=== PATIENT | female | born 1950 | race Two or more races ===

== ENCOUNTER 2024-04-27 20:57 | Inpatient (IN) | payer MEDICARE, MEDICAID, SELFPAY ==
[2024-04-27 21:08] VITALS: PULSE 98
[2024-04-27 21:17] VITALS: BP 147/86; PULSE 133; RESP 18; TEMP 37.9; O2SAT 97; BMI 38.7
--- NOTE | 2024-04-27 21:28 | EKG_ITS ---
[facility] Test Date: 2024-04-27 Pat Name: GOMEZ MARCELINO Department: Room: - Gender: Female Nocturnist Physician: : 1950 Requested By: Luke Bone Order Number: [id number] Reading MD: Luke Bone Measurements Intervals [place] Rate: 122 P: 16 FL: 149 QRS: 176 QRSD: 85 T: 5 QT: 318 QTc: 455 Interpretive Statements SINUS TACHYCARDIA INDETERMINATE AXIS LOW QRS VOLTAGE IN PRECORDIAL LEADS [QRS DEFLECTION < 1.0 mV IN CHEST LEADS] POSSIBLE ANTERIOR MYOCARDIAL INFARCTION , PROBABLY OLD [30 ms Q WAVE IN V3/V4, OR R < 0.2 mV IN V4] INFERIOR MYOCARDIAL INFARCTION , PROBABLY OLD [40+ ms Q WAVE AND/OR ST/T ABNORMALITY IN II/aVF] Compared to ECG 10/25/2022 15:58:16 Indeterminate axis now present Sinus rhythm no longer present Myocardial infarct finding still present /store/S0/[id number].pdf
--- NOTE | 2024-04-27 21:29 | EDNOTE_ITS ---
ED Fall Injury RME/HPI General Chief Complaint: Fall Stated Complaint: FALL Time Seen by Provider: 04/27/24 21:17 Arrival date/time: 04/27/24 20:57 RME / HPI RME / HPI Narrative: Dr. Adams?s Main ED Evaluation: 74yo female with pmhx HTN presents to the ED for a chief complaint of a fall x 30 minutes HIGH SCALER. Patient states she was walking in her room when she felt generally weak and fell. She denies any head strikes or loss of consciousness. Patient reports having epigastric pain x 1 week, chills, nausea, a mild cough, a headache, and sweating. Per EMS, patient was saturating at 88% RA and went up to 96% on 6L. Patient denies any fever, vomiting, diarrhea, shortness of breath or any other associated symptoms. She denies any history of similar symptoms. She denies being on any blood thinners. No known allergies. Patient states she is anxious. Related Data Home Medications ?Medication ?Instructions ?Recorded ?Confirmed hydrochlorothiazide 25 mg tablet 25 mg PO QAM #0 tabs 09/13/14 06/30/18 lisinopril 40 mg tablet 40 mg PO QDAY #0 tabs 09/13/14 06/30/18 atorvastatin 10 mg tablet 10 mg PO QDAY 05/14/18 06/30/18 diclofenac sodium 100 mg 100 mg PO QDAY 05/14/18 06/30/18 tablet,extended release 24 hr omeprazole 40 mg capsule,delayed 40 mg PO QDAY 05/14/18 05/14/18 release sertraline 100 mg tablet 100 mg PO QDAY 06/30/18 06/30/18 Previous Rx's ?Medication ?Instructions ?Recorded naproxen 500 mg tablet 500 mg PO BID #60 tabs 11/20/19 ondansetron HCl 4 mg tablet 4 mg PO Q8H NAUSEA #30 tabs 11/20/19 (Zofran) ibuprofen 800 mg tablet 800 mg PO TID PRN pain #30 tabs 09/06/20 ondansetron 4 mg disintegrating 4 mg PO Q8H PRN nausea and 10/25/22 tablet vomiting #15 tabs Allergies Allergy/AdvReac Type Severity Reaction Status Date / Time No Known Allergies Allergy Verified 02/18/24 09:31 Review of Systems Review of Systems Systems Reviewed: All systems reviewed, normal except as documented Narrative Review of Systems: Gen: No fever, + chills, no weight loss, + sweating EYES: No discharge, no visual changes, no pain HEENT: No ear pain, no congestion, no sore throat PULM: No shortness of breath, + cough, no congestion CV: No chest pain, no dyspnea on exertion, no palpitations GI: + nausea, no vomiting, no diarrhea, + pain, no constipation : No frequency, no urgency, no dysuria Musc/skel: No joint pain, no back pain Skin: No rash. Warm and dry. Psyc: No hallucinations, no depression Heme/Lymph: No easy bleeding or bruising tendencies Neuro: No weakness, + headache Past Medical History Past Medical History NEUROLOGIC: Negative Neurological Disorders or Seizures CARDIAC: Positive Cardiac Disorders, Hypercholesterolemia and Hypertension; Negative Congestive Heart Failure RESPIRATORY: Negative Chronic Obstructive Pulmonary Disease (COPD) or Asthma GASTROINTESTINAL: Positive Gastrointestinal Disorders, Gastroesophageal Reflux Disease and Obesity GENITOURINARY: Negative Genitourinary Disorders or Renal Disease REPRODUCTIVE: Positive Previous Pregnancies; Negative Breast Cancer or Pelvic Inflammatory Disease MUSCULOSKELETAL: Positive Arthritis; Negative Musculoskeletal Disorders ENDOCRINE: Negative Endocrine Disorders, Diabetes Mellitus Type 1 or Diabetes Mellitus Type 2 HEMATOLOGIC: Negative Blood Disorders, Anemia or Sickle Cell Disease PSYCHO/SOCIAL: Positive Depression OTHER HISTORY: Negative Hospitalization, Autoimmune Disease, Falls, Blood Transfusions, Blood Transfusion Reaction, Anesthesia Reactions, MRSA, Clostridium Difficile or Breast Cancer Family History FAMILY HISTORY: Negative Family Cardiac Disorders Surgical History SURGICAL: Positive Cardiac Surgery, Vascular Surgery (varicose veins) and Section Social History SMOKING STATUS: Never smoker ED Exam Narrative Physical exam: GENERAL APPEARANCE: alert and oriented x 4, well-developed, well-nourished, no acute distress VITALS: All vitals were reviewed and the pulse ox is 97% on 6L/nasal cannula, which is hypoxic according to my interpretation. HEENT: Normocephalic, atraumatic; pupils equal, round, reactive to light; EOMI; mucous membranes pink, moist; oropharynx clear NECK: Supple LUNGS: scattered mild wheezes, distant lung sound bilaterally, no rales, no rhonchi HEART: Tachycardic, regular rhythm; normal S1, S2; no murmurs ABDOMEN: non distended; normal BS; soft, moderate mid abdominal tenderness, + Lomax sign, voluntary guarding, no rebound, no rigidity; no masses, no organomegaly, no hernia BACK: no CVA tenderness EXTREMITIES: atraumatic; no edema NEUROLOGIC: awake; alert and oriented x4; cranial nerves II-XII grossly intact; no focal sensory or motor deficits PSYCHIATRIC: appropriate mood and affect SKIN: warm, dry, normal color; no rashes Course Course Course Narrative: CXR is ordered for determining the etiology of fever. 2134: Sepsis alert initiated. Orders made at this time are congruent with ED Adult Sepsis Order List. Re-evaluation is to be completed. 2205: NS IVF started. 2316: Sepsis reassessment performed consisting of lab review, vitals, physical exam including auscultation of heart, lungs, and visual evaluation of capillary refills, mucosal membranes and extremities. Quality Measures Possible source: unknown Blood cultures ordered: yes Antibiotic ordered: Yes Pertinent labs: 04/27/24 21:43 Lactic Acid 3.8 H mMol/L (0.4-2.0) Procalcitonin 0.23 ng/ml (0.0-0.49) sepsis Orders Category Date Time Status Bedside COVID-19 Antigen Test NOW Care 04/27/24 21:32 Active Bedside Influenza A&B Antigen Test NOW Care 04/27/24 21:[address] Screening NOW Care 04/27/24 21:[address] Screening NOW Care 04/27/24 21:41 Completed Laborer [place] STAT Care 04/27/24 21:28 Active Continuous Pulse Oximetry STAT Care 04/27/24 21:28 Completed EKG (ED ONLY) *Do not use* NOW Care 04/27/24 21:28 Completed In and Out Catheter X1PRN Care 04/27/24 21:28 Completed Insert IV NOW Care 04/27/24 21:28 Active NPO STAT Care 04/27/24 21:28 Active Strict Intake and Output Routine Care 04/27/24 21:[address] chest abdomen pelvis w Stat Exams 04/27/24 21:40 Completed EKG (ED Only) Stat Exams 04/27/24 21:28 Draft US gall bladder Stat Exams 04/27/24 21:39 Completed XR chest 1V portable Stat Exams 04/27/24 21:31 Completed B-Type Natriuretic Peptide Stat Lab 04/27/24 21:43 Completed Blood Culture (Lab) Stat Lab 04/27/24 21:43 Received CBC Stat Lab 04/27/24 21:43 Completed Comprehensive Metabolic Panel Stat Lab 04/27/24 21:43 Completed LDH (Lactate Dehydrogenase) Stat Lab 04/27/24 21:43 Completed Lactate (Lactic Acid) Stat Lab 04/27/24 21:43 Completed Lactate (Lactic Acid) Stat Lab 04/28/24 00:48 Ordered Lactic Acid, 3 HR Stat Lab 04/28/24 00:48 Ordered Lipase Stat Lab 04/27/24 21:43 Completed Magnesium Stat Lab 04/27/24 21:43 Completed Partial Thromboplastin Time Stat Lab 04/27/24 21:43 Completed Phosphorous Stat Lab 04/27/24 21:43 Completed Procalcitonin Stat Lab 04/27/24 21:43 Completed Prothrombin Time with INR Stat Lab 04/27/24 21:43 Completed Troponin I Stat Lab 04/27/24 21:43 Completed Troponin I Stat Lab 04/28/24 00:48 Ordered Urinalysis Stat Lab 04/27/24 22:00 Completed Urine Culture Stat Lab 04/27/24 22:00 Received VBG [Venous Blood Gas] Stat Lab 04/27/24 21:43 Completed Acetaminophen Ivpb [Ofirmev Inj] Med 04/27/24 21:35 Discontinued 1,000 mg in 100 ml IV X1 Piper/Tazo 3.375 gm [Zosyn] Med 04/27/24 21:28 Discontinued 3.375 gm in 50 ml IV X1 Sodium Chloride 0.9% 1000 ml [Ns] 1,000 ml Med 04/28/24 00:48 Active IV 999 mls/hr Sodium Chloride 0.9% 500 ml [Ns] 500 ml Med 04/27/24 21:31 Discontinued IV 999 mls/hr Sodium Chloride 0.9% 500 ml [Ns] 500 ml Med 04/27/24 21:42 Discontinued IV 999 mls/hr Vancomycin Inj 2,000 mg Med 04/27/24 21:45 Discontinued Sodium Chloride 0.9% 500 ml [Ns] 500 ml IV X1 Vancomycin Inj 2,000 mg Med 04/27/24 23:09 Active Sodium Chloride 0.9% 500 ml [Ns] 500 ml IV X1 Vancomycin Pharmacy to Dose Med 04/28/24 09:00 Pending 1 each IV QDAY Oxygen Delivery NOW RT 04/27/24 21:28 Active Vital Signs Vital signs: Vital Signs Temperature 100.3 F 04/27/24 21:17 Pulse Rate 133 H 04/27/24 21:17 Respiratory Rate 18 04/27/24 21:17 Blood Pressure 147/86 H 04/27/24 21:17 Pulse Oximetry (%) 97 04/27/24 21:17 Oxygen Delivery Method Nasal Cannula 04/27/24 21:17 Oxygen Flow Rate 6 04/27/24 21:17 Fall MDM Narrative MDM Narrative:: Scribe Attestation: 04/27/24 - Yady Herrmann am scribing for and in the presence of Dr. Adams. Patient data External records reviewed:: [facility] previous records (Per chart review, patient was seen here on 02/18/24 for gastroenteritis.) Clinical information provided by:: patient Social determinants that could affect healthcare access:: none Patient has the following chronic illnesses:: HTN, HLD, GERD How is presenting disease/condition affected by chronic disease/condition?: uneffected by Evaluation data The following diagnostics were reviewed and interpreted by me:: lab results, radiology exam(s) and EKG tracing(s) Lab and/or radiology exams considered but not ordered:: none Interpretation Summary: CBC is normal, Lactic Acid is elevated at 3.8, BNP is slightly elevated at 121, Glucose is elevated at 220, Phosphorus is low at 1.2, Troponin is elevated at 0.064, Procalcitonin is normal, Lipase is normal, UA is unremarkable, Bedside COVID and Influenza are negative, according to my interpretation. EKG done at 2139, sinus tachycardia, rate of 122, normal axis, no ectopy, Q wave in lead III and aVF, no acute ischemia, according to my interpretation. ----- [facility] Report Signed Patient: GOMEZ MARCELINO [facility] Record#: [id number] Birthdate: 1950 Age/Sex: 74 / F Location: [facility] Attending Dr: Ordering Physician: Luke Adams MD Date of Service: 04/27/24 Procedure(s): US gall bladder Accession Number(s): [id number] cc: Celio Landin MD; Luke Adams MD~ Examination: Abdomen sonogram, Limited Date and time of exam: April 27, 2024 10:16 PM Indications: Onset right upper abdominal pain beginning one week ago Technique: Real-time galeano scale transabdominal sonographic images of the upper abdomen obtained. Findings: Normal gallbladder Normal common bile duct 0.4 cm Pancreatic head 2.6 cm Liver 18.5 cm fatty infiltration no focal liver lesions Normal hepatopedal portal venous flow Patent IVC Impression: Normal gallbladder Common bile duct 0.4 cm no stones Hepatomegaly 18.5 cm fatty liver Dictated By: Celio Landin MD Signed By: <Electronically signed by Celio Landin MD in OV> 04/27/242252 [facility] Signed Patient: GOMEZ MARCELINO [facility]. Record#: [id number] Birthdate: 1950 Age/Sex: 74 / F Location: [facility] Attending Dr: Ordering Physician: Luke Adams MD Date of Service: 04/27/24 Procedure(s): XR chest 1V portable Accession Number(s): [id number] cc: Celio Landin MD; Luke Adams MD~ Examination: AP chest single view Technique one AP Upright chest single view Exam date and time: April 27, 2024 2156 hrs. Comparison September 01, 2023 Indications: Coughing, sepsis alert today Findings: Stable scarring in the right upper lobe Normal heart size Ectatic thoracic aorta No interval pneumonia or pulmonary edema Impression: No interval pneumonia or pulmonary edema Dictated By: Celio Landin MD Signed By: <Electronically signed by Celio Landin MD in OV> 04/27/242255 ------- [facility] Report Signed Patient: GOMEZ MARCELINO [facility]. Record#: [id number] Birthdate: 1950 Age/Sex: 74 / F Location: [facility] Attending Dr: Ordering Physician: Luke Adams MD Date of Service: 04/27/24 Procedure(s): CT chest abdomen pelvis w Accession Number(s): [id number] cc: Jacquelyn Martinez [employer]NAGER; Celio Landin MD; Luke Adams MD~ Examination: CT chest with intravenous contrast CT abdomen with intravenous contrast CT pelvis with intravenous contrast 2-D coronal and sagittal reconstructions Time of exam: April 27, 2024 1134 hrs. Comparison July 11, 2023 Indications: Patient fell today with injury to the chest and abdomen, chest pain abdomen pain CTDI: vol (mGy) : 16.8 DLP: (mGycm): 1291 Technique: Multiple axial images of the chest, abdomen and pelvis with intravenous contrast, 3.0 mm slice thickness. Images obtained post intravenous injection Isovue 370 60 cc. 2-D sagittal and coronal reconstructions. Low dose protocols were performed. One or more of the following dose reduction techniques were used; automated exposure control, adjustment of the mA and/or KV according to patient size, use of iterative reconstruction technique. Findings: Thoracic aorta pulmonary arteries intact AP dimension ascending thoracic aorta 3.9 cm No hemopericardium Again noted cavitary lesion posterior segment right upper lobe currently 5.3 x 4.0 x 7.6 cm with fluid level, adjacent pulmonary parenchymal disease No pneumothorax Minimal bilateral pleural disease Old fractures left 10th, ninth, eighth ribs posteriorly Nondisplaced left fifth and seventh rib fractures which may be acute, nondisplaced Manubrium body the sternum intact No thoracic or lumbar fracture Hepatomegaly 25 cm No liver splenic or renal laceration Moderate renal parenchymal scar formation No gallstones No pancreatic or adrenal mass Splenule Abdominal aorta intact, no free blood in the abdomen Normal appendix Negative for pneumoperitoneum Colonic diverticulosis, no diverticulitis Atrophic uterus Urinary bladder intact hips bones of the pelvis sacral segments intact Impression: Again noted cavitary lesion with satellite parenchymal disease in the posterior segment right upper lobe, differential would include tuberculosis Thoracic aorta pulmonary arteries intact No hemopericardium, or pneumothorax Nondisplaced left fifth and seventh rib fractures which may be acute, clinical correlation advised No abdominal parenchymal laceration Abdominal aorta intact No free blood in the abdomen or pelvis Dictated By: Celio Landin MD Signed By: <Electronically signed by Celio Landin MD in OV> 04/28/24 0021 Medications / Prescriptions Medications or Prescriptions considered but not ordered:: none Medication administrations:: Medication Administration History Vancomycin HCl 2,000 mg/ (Sodium Chloride) 500 mls @ 150 mls/hr IV X1 ONE Stop: 04/28/24 02:28 Last Admin: 04/27/24 23:21 Dose: 150 mls/hr Documented By: DAIN Sodium Chloride (Ns) 1,000 mls @ 999 mls/hr IV .Q1H1M ONE Stop: 04/28/24 01:48 Pharmacy Consult (Vancomycin Pharmacy To Dose 1 Each Each) 1 each IV QDAY TAMARA Stop: 05/28/24 08:59 Discontinued Medications Piperacillin/Tazobactam/Dextrose (Zosyn) 3.375 gm in 50 mls @ 100 mls/hr IV X1 ONE Stop: 04/27/24 21:57 Last Infusion: 04/27/24 22:28 Dose: Infused Documented By: Admin: 04/27/24 21:54 Dose: 100 mls/hr Documented By: Sodium Chloride (Ns) 500 mls @ 999 mls/hr IV .Q31M ONE Stop: 04/27/24 22:01 Last Infusion: 04/27/24 22:46 Dose: Infused Documented By: Admin: 04/27/24 22:06 Dose: 999 mls/hr Documented By: LIDA Acetaminophen (Ofirmev Inj) 1,000 mg in 100 mls @ 250 mls/hr IV X1 ONE Stop: 04/27/24 21:58 Last Infusion: 04/27/24 22:56 Dose: Infused Documented By: Admin: 04/27/24 22:25 Dose: 250 mls/hr Documented By: LIDA Vancomycin HCl 2,000 mg/ (Sodium Chloride) 500 mls @ 150 mls/hr IV X1 ONE Stop: 04/28/24 01:04 Last Admin: 04/27/24 23:10 Dose: Not Given Documented By: DAIN Non-Admin Reason: Contaminated/Dropped Sodium Chloride (Ns) 500 mls @ 999 mls/hr IV .Q31M ONE Stop: 04/27/24 22:12 Last Infusion: 04/27/24 23:22 Dose: Infused Documented By: Admin: 04/27/24 22:46 Dose: 999 mls/hr Documented By: LIDA see above Consultations Consultation(s) initiated? (list below): Yes Consultation #1 (Physician, Specialty, Details): Discussed case with [the resident physician, attending Dr. Calle] from Hospitalist service regarding admission. Discussed patients ED course, exam findings, labs, and radiology results. The Hospitalist [agrees] to accept the patient for admission. Time: 00:51 Diagnosis Fall Differential Diagnosis: other (fracture, dislocation, contusion, diverticulitis, pancreatitis, cholelithiasis, cholecystitis) Most likely diagnosis given after review of the tests above:: see below Admission Indicated Admission indicated?: indicated Admission Request Was there a request for admission?: Yes Admission Attestation Admission request attestation: Discussed case with [] from Hospitalist service regarding admission. Discussed patients ED course, exam findings, labs, and radiology results. The Hospitalist [agrees,declines] to accept the patient for admission. Disposition Plan Disposition Plan: Admit Critical Care Time Critical Care Time Critical Care Time: Yes Total Critical Care Time (min.): 60 Attestation: The high probability of sudden, clinically significant deterioration in the patient?s condition required the highest level of my preparedness to intervene urgently. The services I provided to this patient were to treat and/or prevent clinically significant deterioration. Services included the following: chart data review, reviewing nursing notes and/or old charts, documentation time, software sales consultant collaboration regarding findings and treatment options, medication orders and management, direct patient care, vital sign assessments and ordering, interpreting and reviewing diagnostic studies and lab tests. Aggregate critical care time includes only time during which I was engaged in work directly related to the patient?s care, as described above, whether at bedside or elsewhere in the Emergency Department. It did not include time spent performing other reported procedures or the services of residents, students, nurses or physician assistants. Discharge Plan Plan Patient Disposition: Admit Acute Care w/in Hospital Prescriptions/Referrals Prescriptions/Med Rec: No Action hydrochlorothiazide 25 MG tablet 25 mg PO QAM Qty: 0 lisinopril 40 MG tablet 40 mg PO QDAY Qty: 0 atorvastatin 10 mg Tablet 10 mg PO QDAY diclofenac sodium 100 mg Tablet Extended Release 24 Hr 100 mg PO QDAY omeprazole 40 mg Capsule,Delayed Release(Dr/Ec) 40 mg PO QDAY sertraline 100 mg Tablet 100 mg PO QDAY ibuprofen 800 mg tablet 800 mg PO TID PRN (Reason: pain) Qty: 30 0RF naproxen 500 mg tablet 500 mg PO BID Qty: 60 0RF ondansetron HCl [Zofran] 4 mg tablet 4 mg PO Q8H Qty: 30 0RF ondansetron 4 mg tablet,disintegrating 4 mg PO Q8H PRN (Reason: nausea and vomiting) Qty: 15 0RF Referrals: Jacquelyn Martinez NP [Primary Care Provider] - In 1 week Problem List Clinical Impression: Hyperglycemia, Sepsis, Non-ST elevation VT (NSTEMI) Patient/Caregiver Discharge Instructions Print Language: Yi Stand Alone Forms: [employer] Award Info., Patient Portal Info Letter
[2024-04-27 21:36] VITALS: TEMP 39.9
--- NOTE | 2024-04-27 21:39 | XR_ITS ---
Examination: Abdomen sonogram, Limited Date and time of exam: April 27, 2024 10:16 PM Indications: Onset right upper abdominal pain beginning one week ago Technique: Real-time galeano scale transabdominal sonographic images of the upper abdomen obtained. Findings: Normal gallbladder Normal common bile duct 0.4 cm Pancreatic head 2.6 cm Liver 18.5 cm fatty infiltration no focal liver lesions Normal hepatopedal portal venous flow Patent IVC Impression: Normal gallbladder Common bile duct 0.4 cm no stones Hepatomegaly 18.5 cm fatty liver
--- NOTE | 2024-04-27 21:40 | XR_ITS ---
Examination: CT chest with intravenous contrast CT abdomen with intravenous contrast CT pelvis with intravenous contrast 2-D coronal and sagittal reconstructions Time of exam: April 27, 2024 1134 hrs. Comparison July 11, 2023 Indications: Patient fell today with injury to the chest and abdomen, chest pain abdomen pain CTDI: vol (mGy) : 16.8 DLP: (mGycm): 1291 Technique: Multiple axial images of the chest, abdomen and pelvis with intravenous contrast, 3.0 mm slice thickness. Images obtained post intravenous injection Isovue 370 60 cc. 2-D sagittal and coronal reconstructions. Low dose protocols were performed. One or more of the following dose reduction techniques were used; automated exposure control, adjustment of the mA and/or KV according to patient size, use of iterative reconstruction technique. Findings: Thoracic aorta pulmonary arteries intact AP dimension ascending thoracic aorta 3.9 cm No hemopericardium Again noted cavitary lesion posterior segment right upper lobe currently 5.3 x 4.0 x 7.6 cm with fluid level, adjacent pulmonary parenchymal disease No pneumothorax Minimal bilateral pleural disease Old fractures left 10th, ninth, eighth ribs posteriorly Nondisplaced left fifth and seventh rib fractures which may be acute, nondisplaced Manubrium body the sternum intact No thoracic or lumbar fracture Hepatomegaly 25 cm No liver splenic or renal laceration Moderate renal parenchymal scar formation No gallstones No pancreatic or adrenal mass Splenule Abdominal aorta intact, no free blood in the abdomen Normal appendix Negative for pneumoperitoneum Colonic diverticulosis, no diverticulitis Atrophic uterus Urinary bladder intact hips bones of the pelvis sacral segments intact Impression: Again noted cavitary lesion with satellite parenchymal disease in the posterior segment right upper lobe, differential would include tuberculosis Thoracic aorta pulmonary arteries intact No hemopericardium, or pneumothorax Nondisplaced left fifth and seventh rib fractures which may be acute, clinical correlation advised No abdominal parenchymal laceration Abdominal aorta intact No free blood in the abdomen or pelvis
[2024-04-27 21:52] LABS: Base Excess, Venous 3 (-3-3); Lactate (Lactic Acid) 3.8 mMol/L (0.4-2.0); O2 Saturation, Venous 97 % (96-97); PCO2, Venous 36 mmHg (36-56); PO2, Venous 69 mmHg (15-58); pH, Venous 7.47 (7.33-7.66)
[2024-04-27] MEDS: PIPER/TAZO 3.375 GM 3.375 GM/50 ML BAG IV (21:54)
[2024-04-27 21:56] LABS: Basophils % (Auto) 0 % (0-2.5); Eosinophils % (Auto) 0 % (0-10); Hematocrit 41.5 % (36.0-46.0); Hemoglobin 13.1 g/dL (12.0-16.0); Immature Granulocytes % (Auto) 0 % (0-0); Immature Granulocytes Auto 0.02 Thou/mm3 (0.00-0.00); Lymphocytes # (Auto) 0.7 Thou/mm3 (1.0-4.8); Lymphocytes % (Auto) 7 % (10-50); Mean Corpuscular HGB Conc 31.6 g/dl (31.0-37.0); Mean Corpuscular Hemoglobin 28.7 pg (25.0-35.0); Mean Corpuscular Volume 91 fL (80-100); Monocytes # (Auto) 0.4 Thou/mm3 (0.0-0.8); Monocytes % (Auto) 4 % (0-12); Neutrophils # (Auto) 8.3 Thou/mm3 (1.8-7.7); Neutrophils % (Auto) 88 % (37-80); Nucleated Red Blood Cell % 0 /100 WBC (0); Platelet Count 176 Thou/mm3 (140-440); RDW Standard Deviation 47.4 fL (36.4-46.3); Red Blood Count 4.56 Miln/mm3 (4.00-5.20); White Blood Count 9.5 Thou/mm3 (3.6-11.0)
[2024-04-27] MEDS: SODIUM CHLORIDE 0.9% 500 ML 500 ML 999 ML IV ×2 (22:06→22:46)
[2024-04-27 22:07] LABS: INR 1.1 (0.9-1.3); Partial Thromboplastin Time 26.1 Seconds (22.0-36.0); Prothrombin Time 11.9 Seconds (9.0-12.2)
[2024-04-27 22:09] VITALS: PULSE 127; RESP 92; O2SAT 95
[2024-04-27 22:09] LABS: B-Type Natriuretic Peptide 121 pg/mL (0-100)
[2024-04-27 22:13] LABS: Alanine Aminotransferase 10 U/L (10-49); Albumin, Serum 3.9 gm/dL (3.4-4.8); Albumin/Globulin Ratio 1.2 (1.2-2.2); Alkaline Phosphatase 172 U/L (46-116); Anion Gap 10 (7-16); Aspartate Amino Transferase 27 U/L (0-34); BUN/Creatinine Ratio 13 Ratio (12-20); Bilirubin,Total 0.6 mg/dL (0.3-1.2); Blood Urea Nitrogen 12 mg/dL (9-23); Calcium 10.1 mg/dL (8.3-10.6); Calcium (Corrected) 10.2 mg/dL (8.5-10.1); Carbon Dioxide 25.7 mMol/L (20.0-31.0); Chloride 103 mMol/L (98-107); Creatinine (Component) 0.9 mg/dL (0.6-1.3); Estimated Creatinine Clearance 68.5 mL/min (>60); Globulin 3.3 gm/dL (2.3-3.5); Glucose 220 mg/dL (74-106); Lipase 27 U/L (12-53); Magnesium 1.6 mg/dL (1.6-2.6); Osmolality,Calculated 284 (275-295); Phosphorous 1.2 mg/dL (2.4-5.1); Sodium 139 mMol/L (136-145); Total Protein 7.2 gm/dL (5.7-8.2); eGFR > 60 See Note
[2024-04-27] MEDS: ACETAMINOPHEN IVPB 1,000 MG/100 ML VIAL 250 MG IV (22:25)
[2024-04-27 22:26] LABS: Troponin I 0.064 ng/mL (0.0-0.045)
[2024-04-27 22:32] LABS: Procalcitonin 0.23 ng/ml (0.0-0.49)
[2024-04-27 22:39] LABS: Collection Type, Urine Clean Catch; Squamous Epithelial Cell,Urine 0 /hpf (0-5)
[2024-04-27 22:45] LABS: LDH (Lactate Dehydrogenase) 186 U/L (120-246)
[2024-04-27 23:02] LABS: Bacteria,Urine Rare; Bilirubin,Urine Negative (Negative); Blood,Urine Negative (Negative); Clarity,Urine Clear (Clear/Hazy); Color,Urine Lt-Yellow (Lt Yel-Yel); Glucose, Urine Negative (Negative); Ketones,Urine Negative (Negative); Leukocyte Esterase,Urine Negative (Negative); Nitrite,Urine Negative (Negative); PH,Urine 7.5 (5.0-7.0); Protein,Urine Trace (Neg - Trace); RBC,Urine 1 /hpf (0-3); Specific Gravity,Urine 1.013 (1.001-1.035); Urobilinogen,Urine Negative mg/dL (0.0-1.0); WBC,Urine 5 /hpf (0-5)
[2024-04-27] MEDS: Vancomycin Inj 2,000 MG in SODIUM CHLORIDE 0.9% 500 ML 500 ML 150 MG IV (23:21)
[2024-04-28] VITALS (7 sets, daily range): BP systolic 109–161; BP diastolic 61–95; PULSE 64–99; RESP 17–23; TEMP 36.1–37; O2SAT 92–98; BMI 42.7
[2024-04-28 00:48] LABS: Reflex Lactate? Y
[2024-04-28] MEDS: SODIUM CHLORIDE 0.9% 1000 ML 1,000 ML 999 ML IV ×2 (00:58→03:38)
[2024-04-28 01:44] LABS: Lactate (Lactic Acid) 2.1 mMol/L (0.4-2.0)
[2024-04-28 02:12] LABS: Troponin I 0.068 ng/mL (0.0-0.045)
--- NOTE | 2024-04-28 02:47 | XR_ITS ---
Examination: Knee, right , 3 views Technique: Knee AP, lateral, oblique 3 views Date and time of exam: April 28, 2024 0301 hrs. Indications: Patient fell today with injury to the knee, knee pain. Findings: Severe osteopenia Advanced narrowing medial joint space No acute fracture Small knee effusion No dislocation Impression: No acute fracture
--- NOTE | 2024-04-28 03:00 | ESHP_ITS ---
Documentation for date of: 04/28/24 [facility] History of Present Illness Chief complaint: generalized weakness History of present illness: Patient is a 74-year-old female with past medical history significant for hypertension, diabetes, dementia, depression, hyperlipidemia, chronic back pain, GERD who presented to the ED after sustaining ground level fall. Patient was using the restroom, and when she was about to rise, patient felt dizzy and lightheaded, and her legs gave out and fell on her knees. Patient continues to report 7/10 right knee pain and left rib cage pain, but denies any numbness or loss of sensation. Associated symptoms include having nausea and headache earlier today, and does report low fluid intake. Of note, patient has been also feeling thirsty, suprapubic tenderness, and increased urinary frequency for the last 3 days. Patient denies any recent travel, sick contacts at home, chest pain, any rashes, SOB, vomiting, diarrhea, or constipation. ROS: As mentioned above, plus heartburn, RUQ pain, diffuse chronic pain especially lower back and neck s/p back fall when climbing a ladder PMHx: As mentioned above PSHx: varicose vein surgery ~many years ago, 2 abdominal hernia repairs, and C- sections Meds: Atorvastatin 10 mg daily, diclofenac sodium 100 mg daily lisinopril 40 mg daily, Profen 800 mg p.o. 3 times daily, naproxen 500 mg p.o. twice daily, Prozac 40 mg daily, presents to trauma, sertraline 100 mg p.o. daily Patient diagnosed with diabetes per patient's family, but hasn't taken any oral medications SHx: Denies any smoking, EtOH use, or ilicit drug use Family history: Patient's son currently has kidney failure Allergies: NKDA In the ED, patient presented with a blood pressure of 147/86, heart rate of 133 and a fever of 103.9, saturating 88% on room air, requiring nasal cannula 6 L. Labs significant for elevated glucose, elevated lactate, but downtrending, and elevated troponin x2. UA negative for UTI. Sepsis alert was called in the ED, due to patient having 2 out of 4 SIRS criteria with elevated lactate. Chest x- ray showed stable scarring right upper lobe no pneumonia or pulmonary edema. EKG showed aVF sinus tachycardia. Gallbladder showed normal gallbladder, common bile duct, and hepatomegaly. Chest CT abdomen pelvis showed stable cavitary lesion with no pneumothorax, but acute left fifth and seventh rib fractures and chronic 10th, 9th, and 8th posterio ribs Patient was given 2L bolus NS in the ED, along with IV Vanc and Zosyn. Patient will be admitted to telemetry for further management of sepsis 2/2 unknown source. Review of Systems Review of Systems Systems Reviewed: All systems reviewed, normal except as documented Exam Vital Signs Temp Pulse Resp BP Pulse Ox O2 Del Method O2 Flow Rate 98.6 F 86 18 109/61 94 L Nasal Cannula 2 04/28/24 00:26 04/28/24 00:04/28/24 00:26 04/28/24 00:26 04/28/24 00:04/28/24 00:04/28/24 00: Narrative Exam General Appearance: Pt in mild acute distress laying in bed with NC HEENT: NC/AT, no scleral icterus, no conjunctival pallor, MMM Lungs: CTAB, no wheezes or crackles appreciated CVS: RRR, S1/S2 heard, no murmurs or rubs appreciated, 1+ pedal edema b/l Chest: Tender to palpation on left rib cage ABD: Suprapubic tenderness with guarding as well as mild TTP to RUQ, soft, non- distended, BS + in all 4 quadrants EXT: no deformity/edema/lesions/cyanosis/clubbing, radial pulses 2+ BL, DP pulses 2 + BL SKIN: Skin exam normal without any rashes. Neuro: A&O x 3. No gross neurological deficits. Motor and sensory grossly intact in B/L UL and LL except for RLE. RLE 3/5 motor strength, but limited d/t pain. Psych: Appropriate mood and affect Results: Labs 04/28/24 06:15 04/27/24 21:43 Labs: Short CBC 04/27/24 Range/Units 21:43 WBC 9.5 (3.6-11.0) Thou/mm3 Hgb 13.1 (12.0-16.0) g/dL Hct 41.5 (36.0-46.0) % Plt Count 176 (140-440) Thou/mm3 BMP 04/27/24 21:43 Sodium 139 Potassium 4.0 Chloride 103 Carbon Dioxide 25.7 BUN 12 Creatinine 0.9 Glucose 220 H Calcium 10.1 Cardiac Enzymes 04/27/24 04/28/24 Range/Units 21:43 01:37 Troponin I 0.064 H* 0.068 H* (0.0-0.045) ng/mL Liver Function 04/27/24 Range/Units 21:43 Total Bilirubin 0.6 (0.3-1.2) mg/dL AST 27 (0-34) U/L ALT 10 (10-49) U/L Alkaline Phosphatase 172 H (46-116) U/L Albumin 3.9 (3.4-4.8) gm/dL Urine 04/27/24 Range/Units 22:00 Urine Color Lt-Yellow (Lt Yel-Yel) Urine Clarity Clear (Clear/Hazy) Urine pH 7.5 H (5.0-7.0) Ur Specific [place] 1.013 (1.001-1.035) Urine Protein Trace (Neg - Trace) Urine Glucose (UA) Negative (Negative) ABG Interpretation ABG results: 04/27/24 21:43 VBG pH 7.47 VBG pCO2 36 VBG pO2 69 H VBG Base Excess 3 Quality Measures Quality Measures sepsis Current suspected stage: severe sepsis Possible source: unknown Blood cultures ordered: yes Antibiotic ordered: Yes Advance care planning discussed with:: patient, spouse and child Medications Home Medications and Allergies Home Medications ?Medication ?Instructions ?Recorded ?Confirmed ?Type hydrochlorothiazide 25 mg tablet 25 mg PO QAM #0 tabs 09/13/14 04/28/24 History lisinopril 40 mg tablet 40 mg PO QDAY #0 tabs 09/13/14 04/28/24 History atorvastatin 10 mg tablet 10 mg PO QDAY 05/14/18 04/28/24 History diclofenac sodium 100 mg 100 mg PO QDAY 05/14/18 04/28/24 History tablet,extended release 24 hr omeprazole 40 mg capsule,delayed 40 mg PO QDAY 05/14/18 04/28/24 History release sertraline 100 mg tablet 100 mg PO QDAY 06/30/18 04/28/24 History Allergies Allergy/AdvReac Type Severity Reaction Status Date / Time No Known Allergies Allergy Verified 02/18/24 09:31 Visit Medications Acetaminophen (Acetaminophen 325 Mg Tablet) 650 mg PO Q6H PRN PRN Reason: Fever >100.4 or Pain 1-3 Stop: 05/28/24 02:22 Heparin Sodium (Porcine) (Heparin Sod Inj 5000 Unit/Ml Vial) 5,000 unit SC Q12HR [facility] Stop: 05/12/24 08:59 Sodium Chloride (Ns) 1,000 mls @ 999 mls/hr IV .Q1H1M ONE Stop: 04/28/24 03:31 Piperacillin Sod/Tazobactam (Sod 3.375 gm/ Sodium Chloride) 50 mls @ 100 mls/hr IV Q6HR [facility] Stop: 05/05/24 02:48 Morphine Sulfate (Morphine Sulf Inj 10 Mg/Ml Vial) 1 mg IVP Q3H PRN PRN Reason: PAIN SCALE 7-10 (Severe Stop: 05/03/24 02:22 Ondansetron HCl (Ondansetron Inj 2 Mg/Ml Inj 2 Ml) 4 mg IV Q6H PRN; Protocol PRN Reason: NAUSEA OR VOMITING Stop: 05/28/24 02:22 Pantoprazole Sodium (Pantoprazole 40 Mg Tablet) 40 mg PO QDAY [facility] Stop: 05/28/24 08:59 Pharmacy Consult (Vancomycin Pharmacy To Dose 1 Each Each) 1 each IV QDAY [facility] Stop: 05/28/24 08:59 Sennosides (Senna Tablet) 1 tab PO QDAY [facility]; Protocol Stop: 05/28/24 08:59 Tramadol HCl (Tramadol Hcl 50 Mg Tablet) 50 mg PO Q6HR PRN PRN Reason: PAIN SCALE 4-6 (Moderate Stop: 05/03/24 02:22 Discontinued Medications Piperacillin/Tazobactam/Dextrose (Zosyn) 3.375 gm in 50 mls @ 100 mls/hr IV X1 ONE Stop: 04/27/24 21:57 Last Infusion: 04/27/24 22:28 Dose: Infused Sodium Chloride (Ns) 500 mls @ 999 mls/hr IV .Q31M ONE Stop: 04/27/24 22:01 Last Infusion: 04/27/24 22:46 Dose: Infused Acetaminophen (Ofirmev Inj) 1,000 mg in 100 mls @ 250 mls/hr IV X1 ONE Stop: 04/27/24 21:58 Last Infusion: 04/27/24 22:56 Dose: Infused Vancomycin HCl 2,000 mg/ (Sodium Chloride) 500 mls @ 150 mls/hr IV X1 ONE Stop: 04/28/24 01:04 Last Admin: 04/27/24 23:10 Dose: Not Given Sodium Chloride (Ns) 500 mls @ 999 mls/hr IV .Q31M ONE Stop: 04/27/24 22:12 Last Infusion: 04/27/24 23:22 Dose: Infused Vancomycin HCl 2,000 mg/ (Sodium Chloride) 500 mls @ 150 mls/hr IV X1 ONE Stop: 04/28/24 02:28 Last Infusion: 04/28/24 02:42 Dose: Infused Sodium Chloride (Ns) 1,000 mls @ 999 mls/hr IV .Q1H1M ONE Stop: 04/28/24 01:48 Last Infusion: 04/28/24 02:17 Dose: Infused Lidocaine (Lidocaine 5% 1 Patch) 1 patch TOP X1 ONE Stop: 04/28/24 02:51 Assessment & Plan Plan Patient is a 74-year-old female with past medical history significant for hypertension, diabetes, dementia, depression, hyperlipidemia, chronic back pain, GERD who presented to the ED after sustaining ground level fall and admitted to telemetry for further management of sepsis 2/2 unknown source. #Severe sepsis 2/2 unknown source Patient presented with 2/4 SIRS criteria with elevated lactate of 3.8. Imaging currently negative for any obvious source. Patient's tachycardia and fever could be 2/2 recent rib fracture pain. Negative COVID, Influenza. Procal negative. Patient given 2L bolus NS in the ED, and given an additional 1L bolus. Patient received about 30cc/kg per sepsis protocol. LA downtrending, currently 2.1 -Trend lactic acid -IV Broad spectrum Abx with Vanc and Zosyn, and descalate as needed -Follow-up blood and urine cultures -Tylenol for fever -Zofran for nausea -MRSA nares screen -Encourage oral fluids #Acute hypoxic respiratory failure 2/2 underlying sepsis Patient presented to the hospital on room air saturating 88%. Patient required nasal cannula of 6 L, and currently has had 2 L saturating above 94% -Continue to wean O2 as tolerated -Treat underlying sepsis -Will obtain CTA to r/o PE #Elevated Troponin Most likely secondary to demand ischemia secondary to underlying sepsis. Patient came in with a troponin of 0.064 and elevated 0.068. EKG shows Q waves in lead aVF otherwise sinus tachycardia. Patient denies any chest pain. BNP 121. -Admitted to telemetry -Continue to trend troponin Q6 -Continue to monitor vital signs -Repeat EKG if changes in vital signs or symptoms seen #Acute displaced left rib fractures #Ground level fall #Right knee pain #Chronic pain Patient states that she was using the restroom, and suffered a ground-level fall after her legs gave out while having dizziness and headache. Patient reports having right knee pain especially on passive leg raise compared to the left leg. Patient also has tenderness on palpation to left rib cage. CT chest abdomen pelvis shows acute nondisplaced of fifth and seventh rib fractures. -Continue to monitor for pain -Pain regimen: Mild to Moderate (1-3/10) Acetaminophen 650mg Q6H PO PRN, Mod to Severe (4-6/10) tramadol Q6H PO PRN , Severe (7-10/10) morphine 1mg Q3H IV PRN -Hold patient's chronic pain meds including naproxen, diclofenac, and ibuprofen for now -PT ordered -Follow-up with right knee x-ray findings #Diabetes Mellitus not on chronic insulin therapy Patient has been complaining of suprapubic tenderness, urinary frequency and polydipsia for the last few days. Patient denies taking any diabetes medications despite knowing that she has diabetes. -Will start patient on sliding scale -Hypoglycemic protocol in place -A1c ordered in a.m. -Consider starting medications at discharge #Right cavitary lesion-stable Chest x-ray right stable scarring of right upper lobe. Chest CT showed cavitary lesion in the posterior segment of, 5.3 x 4.05 7.6 cm with fluid level suggesting pulmonary parenchymal disease. -Continue to follow-up outpatient #Essential HTN Patient takes home hydrochlorothiazide 25 mg and lisinopril 40 mg daily. Due to patient's currently soft blood pressure and recent episode of dizziness and lightheadedness, will hold patient's home pressure meds. -Orthostatic vitals ordered -Restart home medications when tolerable #HLD Patient takes home atorvastatin 10 mg daily -Will restart patient's home medication -Will order follow-up lipid panel in a.m. #GERD Patient takes home Omeprazole 40 mg p.o. daily. Patient was complaining of some heartburn. -Will start patient on p.o. pantoprazole 40mg in hospital #Dementia Per patient's daughter, patient has been forgetting things slowly however patient continues to be A &O x [address] and situation. Patient currently does not take any medications for dementia. Patient is able to do most IADLs, lives with her . #Depression Restarted patient's home Sertraline 100mg QD #Electrolyte imbalance #Hypomagnesemia #Hypophosphatemia #Hypokalemia -Follow-up with daily CMP and replete electrolytes as needed Health Maintenance: DVT prophylaxis: Heparin subcu Diet: Cardiac, carb consistent GI prophylaxis: Pantoprazole 40 mg daily [place]: No Lines: PIV Supplemental O2: Nasal cannula CODE STATUS: Full code Disposition: Admitted telemetry for further management of sepsis secondary to unknown and acute hypoxic respiratory failure. Patient's plan and care discussed with my attending, Dr. Luc Julio MD PGY-2 Attending Provider Attestation/Addendum I, Bryce Calle MD attest that I was physically present for the wallace portions of the service and evaluated the patient with the resident and I reviewed and discussed the case with the resident and agree with the resident's findings and plans of care as documented above 74-year-old obese female with past medical history of hypertension, hyperlipidemia, DM, baseline dementia presents to the ED with chief complaint of weakness and fall with associated right upper quadrant abdominal pain that began shortly prior to ER visit. She reports getting up from bed and feeling lightheaded and dizzy after which she fell to her knees and could not get up so EMS was called. On initial eval in the ED, patient met SIRS criteria with heart rate of 133 temp of 103.9 and lactic acid of 3.8. Sepsis protocol was initiated and CT chest abdomen pelvis were completed which showed no clear source of infection. Patient endorsed some right upper quadrant pain, however on further investigation daughter reports RUQ pain has been ongoing for months (recent RUQ US negative). CT chest showed persistent cavitary lesion with no noted changes and also showed some left-sided rib fractures which daughter states likely were the result of fall from ladder 2 years ago, she has no other symptoms to suggest an acute source, Kernig and Brudsinski sign negative (low likelihood of meningitis at this time). Will initiate patient on broad-spectrum antibiotics at this time, obtain CTA for PE, and follow blood cultures while we continue to investigate possible alternative source. Bryce Calle MD
--- NOTE | 2024-04-28 03:37 | PC.NURSE ---
REPORT GIVEN TO FLOOR NURSE ROSSY
[2024-04-28] MEDS: LIDOCAINE 5% 1 PATCH TOP (04:21)
[2024-04-28] MEDS: traMADol HCL 50 MG TABLET PO (04:21)
[2024-04-28] MEDS: Magnesium Sulfate 4 GM Ivpb 4 GM/50 ML BAG IV (04:27)
[2024-04-28 04:42] LABS: Reflex Lactate? Y
[2024-04-28 06:16] LABS: Lactate (Lactic Acid) 1.5 mMol/L (0.4-2.0)
[2024-04-28 06:31] LABS: Basophils % (Auto) 0 % (0-2.5); Eosinophils % (Auto) 0 % (0-10); Hemoglobin 11.4 g/dL (12.0-16.0); Immature Granulocytes % (Auto) 0 % (0-0); Immature Granulocytes Auto 0.02 Thou/mm3 (0.00-0.00); Lymphocytes # (Auto) 0.7 Thou/mm3 (1.0-4.8); Lymphocytes % (Auto) 8 % (10-50); Mean Corpuscular HGB Conc 30.8 g/dl (31.0-37.0); Mean Corpuscular Hemoglobin 28.7 pg (25.0-35.0); Mean Corpuscular Volume 93 fL (80-100); Monocytes # (Auto) 0.2 Thou/mm3 (0.0-0.8); Monocytes % (Auto) 2 % (0-12); Neutrophils # (Auto) 7.6 Thou/mm3 (1.8-7.7); Neutrophils % (Auto) 89 % (37-80); Nucleated Red Blood Cell % 0 /100 WBC (0); Platelet Count 171 Thou/mm3 (140-440); RDW Standard Deviation 49.3 fL (36.4-46.3); Red Blood Count 3.97 Miln/mm3 (4.00-5.20); White Blood Count 8.6 Thou/mm3 (3.6-11.0)
[2024-04-28] MEDS: PIPER/TAZO INJ 3.375 GM in SODIUM CHLORIDE 0.9% (P) 50 ML IV ×3 (06:34→21:39)
--- NOTE | 2024-04-28 06:45 | XR_ITS ---
Examination: CTA chest with intravenous contrast 2-D reconstructions 3-D reconstructions, vascular Date and time of exam: April 20, 2024 1608 hrs. Indications: Chest pain and tachycardia shortness of breath and fever today clinical diagnosis pulmonary embolus CTDI: vol (mGy) 59.1 DLP: (mGycm) 552 Technique: Multiple axial sections of the thorax have been obtained. 3 mm slice thickness, from below the hemidiaphragms to above the apices of the lungs. Mediastinal and lung density settings have been obtained. 2-D sagittal and coronal reconstructions. 3-D angiographic renderings, 3-D volume renderings, 3D post processing, vascular maximum intensity projections obtained. Contrast administered is 100 cc [id number]. Low dose protocols were performed. One or more of the following dose reduction techniques were used; automated exposure control, adjustment of the mA and/or KV according to patient size, use of iterative reconstruction technique. Findings: AP dimension ascending thoracic aorta 3.8 cm No thoracic aortic dissection No pulmonary artery emboli Right hilar lymphadenopathy Again noted cavitary lesion posterior segment right upper lobe, 5 x 4 x 7.5 cm with parenchymal disease extending below the cavitary lesion, for instance axial image 127 consistent with pneumonia Minimal pleural fluid No visualized liver or splenic lesion No gallstones No abdominal aortic aneurysm No pancreatic mass Moderate thoracic spondylosis Impression: Negative for pulmonary artery emboli Large cavitary lesion posterior segment right upper lobe with pneumonic consolidation adjacent to this cavitary lesion, highest on the differential list is infectious processes including active tuberculosis
[2024-04-28 07:12] LABS: Alanine Aminotransferase 15 U/L (10-49); Albumin, Serum 3.4 gm/dL (3.4-4.8); Albumin/Globulin Ratio 1.2 (1.2-2.2); Alkaline Phosphatase 135 U/L (46-116); Anion Gap 4 (7-16); Aspartate Amino Transferase 15 U/L (0-34); BUN/Creatinine Ratio 14 Ratio (12-20); Bilirubin,Total 0.7 mg/dL (0.3-1.2); Blood Urea Nitrogen 11 mg/dL (9-23); Calcium 8.7 mg/dL (8.3-10.6); Calcium (Corrected) 9.2 mg/dL (8.5-10.1); Carbon Dioxide 28.4 mMol/L (20.0-31.0); Cardiac Risk Estimate 4.2 RATIO (3.7-5.6); Chloride 107 mMol/L (98-107); Cholesterol 137 mg/dL (132-200); Creatinine (Component) 0.8 mg/dL (0.6-1.3); Estimated Creatinine Clearance 73.2 mL/min (>60); Globulin 2.8 gm/dL (2.3-3.5); Glucose 161 mg/dL (74-106); HDL Cholesterol 33 mg/dL (40-60); LDL Cholesterol,Calculated 82 mg/dL (0-130); Magnesium 1.7 mg/dL (1.6-2.6); Osmolality,Calculated 279 (275-295); Phosphorous 3.3 mg/dL (2.4-5.1); Potassium 3.8 mMol/L (3.4-5.1); Sodium 139 mMol/L (136-145); Thyroid Stimulating Hormone 1.77 uIU/mL (0.55-4.78); Total Protein 6.2 gm/dL (5.7-8.2); Triglycerides 109 mg/dL (30-150); eGFR > 60 See Note
[2024-04-28 07:29] LABS: Glucose Estimated Average 192 mg/dL (80-131); Hemoglobin A1C 8.3 % Hgb (4.8-6.0)
[2024-04-28] MEDS: INSULIN LISPRO (AdmeLOG) 1 UNIT/0.01 ML UNIT SC ×3 (07:41→17:03)
--- NOTE | 2024-04-28 08:28 | XR_ITS ---
Examination: Knee, left 3 views , 3 views Technique: Knee AP, lateral, oblique 3 views Date and time of exam: April 28, 2024 0902 hrs. 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
--- NOTE | 2024-04-28 08:30 | ECHO_ITS ---
Transthoracic Echo Report Ht (in): 63 Wt (lb): 241 Exam Location: [facility] Status: Inpatient Television Reporter: Vernell Patel Indications: Procedure Performed: BP: 153 / 93 HR: 68 Rhythm: Sinus Technical Quality: Fair MEASUREMENTS (Male / Female) Normal Values 2D ECHO LV Diastolic Diameter PLAX 5.1 cm 4.2 - 5.9 / 3.9 - 5.3 cm LV Systolic Diameter PLAX 3.8 cm IVS Diastolic Thickness 1.1 cm 0.6 - 1.0 / 0.6 - 0.9 cm LVPW Diastolic Thickness 0.9 cm 0.6 - 1.0 / 0.6 - 0.9 cm LV Relative Wall Thickness 0.4 LVOT Diameter 1.7 cm LA Volume Index 24.5 cm?/m? 16 - 28 cm?/m? Ascending Aorta Diameter 2.9 cm M-MODE Aortic Root Diameter MM 2.8 cm LA Systolic Diameter MM 4.1 cm LA Ao Ratio MM 1.5 AV Cusp Separation MM 2.1 cm DOPPLER AV Peak Velocity 184.0 cm/s AV Peak Gradient 13.5 mmHg AV Mean Gradient 6.0 mmHg AV Velocity Time Integral 37.2 cm LVOT Peak Velocity 112.0 cm/s LVOT Peak Gradient 5.0 mmHg LVOT Velocity Time Integral 27.6 cm LVOT Cardiac Index 1880.6 cm?/min?m? AV Area Cont Eq vti 1.7 cm? AV Area Cont Eq pk 1.4 cm? MV Peak Velocity 91.8 cm/s MV Peak Gradient 3.4 mmHg MV Mean Velocity 55.4 cm/s MV Mean Gradient 1.0 mmHg MV Area PHT 3.5 cm? Mitral E Point Velocity 68.4 cm/s Mitral A Point Velocity 106.0 cm/s Mitral E to A Ratio 0.6 LV E' Lateral Velocity 8.2 cm/s Mitral E to LV E' Lateral Ratio 8.4 LV E' Septal Velocity 5.1 cm/s Mitral E to LV E' Septal Ratio 13.4 TR Peak Velocity 221.0 cm/s TR Peak Gradient 19.5 mmHg FINDINGS Left Ventricle Normal left ventricular size, wall thickness, systolic function with no obvious regional wall motion abnormalities. The ejection fraction is visually estimated at 60%. Right Ventricle The right ventricle is normal in size and systolic function. The estimated right ventricular systoli c pressure, 26 mmHg. RAP 5. Left Atrium The left atrium is normal by two-dimensional, color flow and Doppler imaging with no structural abnormalities, no thrombus formation present. Right Atrium The right atrium is normal by two-dimensional imaging, color flow and Doppler imaging with no struct ural abnormalities, no thrombus formation present. Atrial Septum The interatrial septum appears normal with no evidence of a shunt. Aorta The aorta is normal by two-dimensional, color flow and Doppler interrogation. Mitral Valve The mitral valve is normal by two-dimensional, color flow and Doppler interrogation. There is trace mitral valve regurgitation. Aortic Valve The aortic valve is trileaflet and normal by two-dimensional, color flow and Doppler interrogation. There is trace aortic valve regurgitation. Tricuspid Valve The tricuspid valve is normal by two-dimensional, color flow and Doppler interrogation. There is mil d tricuspid valve regurgitation. Pulmonic Valve There is no significant pulmonic valve regurgitation. Vessels The pulmonary artery appears normal. The inferior vena cava pulmonary and hepatic veins appear estela l. Pericardium The pericardium is normal by two-dimensional imaging. There is no significant pericardial effusion. Other Findings Hepatic cyst present. CONCLUSIONS Normal LV size and function. Estimated EF 60% Normal RV size and function. Trace mitral and trace tricuspid regurgitation . Kathryn Amaya (Electronically Signed) Final Date: 30 April 2024 17:24
[2024-04-28] MEDS: HEPARIN SOD INJ 5000 UNIT/ML VIAL SC ×2 (08:54→21:38)
[2024-04-28] MEDS: SENNA TABLET 1 TAB PO (08:55)
[2024-04-28] MEDS: PANTOPRAZOLE 40 MG TABLET PO (08:55)
[2024-04-28] MEDS: SERTRALINE HCL 25 MG TABLET 100 MG PO (08:55)
--- NOTE | 2024-04-28 09:07 | PC.SS ---
Patient Shaw Vo is a 74 year old female admitted for Sepsis 2/2 Unknown Source. SS met with patient at bedside to discuss discharge plan. Patient reports she lives at home with her . Patient reports that prior to admission she was able to ambulate and did not utilize any source of DME to assist with ambulation. Patient is able to complete all ADL's independently. Patient's PCP is Jacquelyn Martinez. Patient's Medical decision maker is her daughter, [place]. At time of discharge patient will return home. Family will provide transportation. Next of Kin: Sharon, [phone] and Daughter, Helen [phone] Discharge plan: Home
--- NOTE | 2024-04-28 09:35 | ESPR_ITS ---
<Statement entered by Eden Ho MD - 04/28/24 13:53> Patient is a 74-year-old obese female with past medical history of hypertension, hyperlipidemia, DM, baseline dementia, history of Valley Fever who presents to the ER for generalized weakness and fall and admitted for sepsis secondary to unknown source. CT of the chest did show a chronic large cavitary lesion; patient was treated for Valley Fever earlier this year. She has some swelling in her legs that worsened after her fall. Denies any diarrhea, dysuria, chest pain, or any obvious source of infection. We will follow up blood cultures, check knee x-ray, and check for recurrence of Valley Fever. Plan explained to patient and patient's spouse at bedside. Eden Ho MD PGY-3 Documentation for date of: 04/28/24 Subjective Subjective Interval history: Patient Syriac-speaking and interaction facilitated by a registered healthcare top waddy. Patient was seen and examined at bedside this AM. No acute exents overnight. Patient tolerating diet, adequate urine output and mentation is at baseline. Patient says she still feels weak. Orthostatic vitals were negative. Troponin initially elevated at 0.064 subsequently down trended to 0.06. Exam Vital Signs Temp Pulse Resp BP Pulse Ox O2 Del Method O2 Flow Rate 97.0 F 83 17 136/95 H 98 Nasal Cannula 2 04/28/24 08:00 04/28/24 08:00 04/28/24 08:00 04/28/24 08:00 04/28/24 08:00 04/28/24 08:00 04/28/24 08:00 Narrative Exam Constitutional Alert, oriented x 3 and comfortable. Elderly, obese female on O2 via NC HEENT Vision grossly intact. Patent nares. Trachea midline. Yellow discharge around eyes Respiratory Chest normal on inspection and clear auscultation bilaterally Cardiovascular S1 and S2 audible, RRR. No murmurs carotid bruit. No gross JVD. Abdominal Soft, obese and tender to palpation in midline. Lower midline healed surgical scar noted .BS + Genitourinary No bladder tenderness, no flank pain. Normal to palpation Musculoskeletal Extremities tone within normal limits. No LE edema. Right knee swollen compared to left Neurological CN II - XII grossly intact. Extremity motor and sensation grossly intact. Skin Warm, dry and intact. No apparent lesions. Psychiatric Patient has good affect, is cooperative Objective Labs 04/29/24 04:15 04/29/24 04:15 Labs: Laboratory Results - last 24 hr 04/27/24 04/27/24 04/28/24 21:43 22:00 01:37 WBC 9.5 RBC 4.56 Hgb 13.1 Hct 41.5 MCV 91 MCH 28.7 MCHC 31.6 RDW Std Deviation 47.4 H Plt Count 176 Neut % (Auto) 88 H Lymph % (Auto) 7 L Bee % (Auto) 4 Eos % (Auto) 0 Baso % (Auto) 0 Neut # (Auto) 8.3 H Lymph # (Auto) 0.7 L Bee # (Auto) 0.4 Eos # (Auto) 0.0 Baso # (Auto) 0.0 Immature Gran # (Auto) 0.02 H Absolute Nucleated RBC 0.00 Immature Gran % 0 Nucleated RBC % 0 PT 11.9 INR 1.1 APTT 26.1 VBG pH 7.47 VBG pCO2 36 VBG pO2 69 H VBG O2 Sat (Thelma) 97 VBG Base Excess 3 Sodium 139 Potassium 4.0 Chloride 103 Carbon Dioxide 25.7 Anion Gap 10 BUN 12 Creatinine 0.9 Estim Creat Clear Calc 68.5 eGFR > 60 BUN/Creatinine Ratio [address] Glu mg/dL Hemoglobin A1c Calculated Osmolality 284 Lactic Acid 3.8 H 2.1 H Calcium 10.1 Corrected Calcium 10.2 H Phosphorus 1.2 L Magnesium 1.6 Total Bilirubin 0.6 AST 27 ALT 10 Alkaline Phosphatase 172 H Lactate Dehydrogenase 186 Troponin I 0.064 H* 0.068 H* B-Natriuretic Peptide 121 H Total Protein 7.2 Albumin 3.9 Globulin 3.3 Albumin/Globulin Ratio 1.2 Triglycerides Cholesterol LDL Cholesterol, Calc HDL Cholesterol Cholesterol/HDL Ratio Lipase 27 Procalcitonin 0.23 TSH Ur Collection Type Clean Catch Urine Color Lt-Yellow Urine Clarity Clear Urine pH 7.5 H Ur Specific [place] 1.013 Urine Protein Trace Urine Glucose (UA) Negative Urine Ketones Negative Urine Blood Negative Urine Nitrite Negative Urine Bilirubin Negative Urine Urobilinogen (Auto) Negative Ur Leukocyte Esterase Negative Urine RBC 1 Urine WBC 5 Ur Squamous Epith Cells 0 Urine Bacteria Rare 04/28/24 06:15 WBC 8.6 RBC 3.97 L Hgb 11.4 L Hct 37.0 MCV 93 MCH 28.7 MCHC 30.8 L RDW Std Deviation 49.3 H Plt Count 171 Neut % (Auto) 89 H Lymph % (Auto) 8 L Bee % (Auto) 2 Eos % (Auto) 0 Baso % (Auto) 0 Neut # (Auto) 7.6 Lymph # (Auto) 0.7 L Bee # (Auto) 0.2 Eos # (Auto) 0.0 Baso # (Auto) 0.0 Immature Gran # (Auto) 0.02 H Absolute Nucleated RBC 0.00 Immature Gran % 0 Nucleated RBC % 0 PT INR APTT VBG pH VBG pCO2 VBG pO2 VBG O2 Sat (Thelma) VBG Base Excess Sodium 139 Potassium 3.8 Chloride 107 Carbon Dioxide 28.4 Anion Gap 4 L BUN 11 Creatinine 0.8 Estim Creat Clear Calc 73.2 eGFR > 60 BUN/Creatinine Ratio 14 [address]ucose [address] Glu mg/dL 192 H Hemoglobin A1c 8.3 H Calculated Osmolality 279 Lactic Acid 1.5 Calcium 8.7 Corrected Calcium 9.2 Phosphorus 3.3 Magnesium 1.7 Total Bilirubin 0.7 AST 15 ALT 15 Alkaline Phosphatase 135 H D Lactate Dehydrogenase Troponin I 0.060 H* B-Natriuretic Peptide Total Protein 6.2 Albumin 3.4 D Globulin 2.8 Albumin/Globulin Ratio 1.2 Triglycerides 109 Cholesterol 137 LDL Cholesterol, Calc 82 HDL Cholesterol 33 L Cholesterol/HDL Ratio 4.2 Lipase Procalcitonin TSH 1.77 Ur Collection Type Urine Color Urine Clarity Urine pH Ur Specific [place] Urine Protein Urine Glucose (UA) Urine Ketones Urine Blood Urine Nitrite Urine Bilirubin Urine Urobilinogen (Auto) Ur Leukocyte Esterase Urine RBC Urine WBC Ur Squamous Epith Cells Urine Bacteria ABG Interpretation ABG results: 04/27/24 21:43 VBG pH 7.47 VBG pCO2 36 VBG pO2 69 H VBG Base Excess 3 Quality Measures Quality Measures sepsis Current suspected stage: ruled out Possible source: unknown Blood cultures ordered: yes Antibiotic ordered: Yes Advance care planning discussed with:: patient Assessment & Plan Assessment Current Active Medications: Generic Name Dose Route Start Last Admin Trade Name Freq PRN Reason Stop Dose Admin Acetaminophen 650 mg 04/28/24 02:23 Acetaminophen 325 Mg Tablet PO 05/28/24 02:22 Q6H PRN Fever >100.4 or Pain 1-3 Atorvastatin Calcium 10 mg 04/28/24 21:00 Atorvastatin Calcium 10 Mg Tablet PO 05/28/24 20:59 HS TAMARA Dextrose 25 ml 04/28/24 03:59 Dextrose 50%-Water Inj 50 Ml Syringe IV 05/28/24 03:58 Q15MIN PRN BG 50-70 responsive npo pt Dextrose 50 ml 04/28/24 03:59 Dextrose 50%-Water Inj 50 Ml Syringe IV 05/28/24 03:58 Q15MIN PRN BG <50 OR BG <70 & pt unresponsive Glucagon 1 mg 04/28/24 03:59 Glucagon Inj 1 Mg Vial IM Q15MIN PRN BG <70, and no IV access Heparin Sodium (Porcine) 5,000 unit 04/28/24 09:00 04/28/24 08:54 Heparin Sod Inj 5000 Unit/Ml Vial SC 05/12/24 08:59 5,000 unit Q12HR TAMARA Administration Piperacillin Sod/Tazobactam 50 mls @ 12.5 mls/hr 04/28/24 06:15 04/28/24 06:34 Sod 3.375 gm/ Sodium Chloride IV 05/05/24 06:14 12.5 mls/hr Q8HR TAMARA Administration Protocol Vancomycin/Sodium Chloride 200 mls @ 120 mls/hr 04/28/24 10:00 Vancomycin/Ns 1 Gm Ivpb IV 05/05/24 09:59 BID@1000,2200 [facility] Protocol Insulin Human Lispro 0 unit 04/28/24 07:30 04/28/24 07:41 Insulin Lispro (Admelog) 1 Unit/0.01 Ml Unit SC 05/28/24 07:29 1 unit AC TAMARA Administration Protocol Morphine Sulfate 1 mg 04/28/24 02:23 Morphine Sulf Inj 10 Mg/Ml Vial IVP 05/03/24 02:22 Q3H PRN PAIN SCALE 7-10 (Severe Ondansetron HCl 4 mg 04/28/24 02:23 Ondansetron Inj 2 Mg/Ml Inj 2 Ml IV 05/28/24 02:22 Q6H PRN NAUSEA OR VOMITING Protocol Pantoprazole Sodium 40 mg 04/28/24 09:00 04/28/24 08:55 Pantoprazole 40 Mg Tablet PO 05/28/24 08:59 40 mg QDAY [facility] Administration Pharmacy Consult 1 each 04/28/24 09:00 Vancomycin Pharmacy To Dose 1 Each Each IV 05/28/24 08:59 QDAY PRN PROTOCOL Sennosides 1 tab 04/28/24 09:00 04/28/24 08:55 Senna Tablet PO 05/28/24 08:59 1 tab QDAY TAMARA Administration Protocol Sertraline HCl 100 mg 04/28/24 09:00 04/28/24 08:55 Sertraline Hcl 25 Mg Tablet PO 05/28/24 08:59 100 mg QDAY TAMARA Administration Tramadol HCl 50 mg 04/28/24 02:23 04/28/24 04:21 Tramadol Hcl 50 Mg Tablet PO 05/03/24 02:22 50 mg Q6HR PRN Administration PAIN SCALE 4-6 (Moderate Plan Patient is a 74-year-old female with a past medical history significant for right lung cavitary lesion, pulmonary coccidiomycosis, essential hypertension, dementia, depression, hyperlipidemia, chronic back pain and GERD who presented to the ED after a ground-level fall and admitted for SIRS 2/4. 1. SIRS 2/4 2. Lactic acidosis - resolving Patient presented with 2/4 SIRS criteria with elevated lactate of 3.8. Imaging currently negative for any obvious source. Patient's tachycardia and fever could be 2/2 recent rib fracture pain. Negative COVID, Influenza. Procal negative. Patient given 2L bolus NS in the ED, and given an additional 1L bolus. Patient received about 30cc/kg per sepsis protocol. LA 2.1 downtrended to 1.5 Patient had history of pulmonary coccidiomycosis January 2024. Possibly still has active disease and this may be because of fever 103.9F and tachycardia 133 Plan: - D2 Zosyn 3.375 g IV Q8 hourly started on [04/27? ? D2 vancomycin 1 g IV twice daily started on [04/27? - Pending blood and urine culture - Pending MRSA nares screen - Tylenol for fever - Zofran for nausea - Encourage oral fluids 3. Right cavitary lesion-stable 4. History of pulmonary coccidiomycosis Chest x-ray right stable scarring of right upper lobe. Chest CT showed cavitary lesion in the posterior segment of, 5.3 x 4.05 7.6 cm with fluid level suggesting pulmonary parenchymal disease. Patient previously diagnosed with valley fever and January 2024 and prescribed 3-month course of fluconazole. Also previously worked up for tuberculosis and had negative AFBs x 3. Plan: ? Repeat cocci serology ordered 5. NSTEMI type I versus type II Patient did not complain of chest pain or shortness of breath. EKG on admission sinus tachycardia, rate 122, Q waves in inferior leads, low voltage complexes. No acute ST changes. Troponin initially elevated at 0.064 but trended to 0.068 and subsequently down trended to 0.06 Likely type II in setting of SIRS and cocci infection 6. Acute displaced left rib fractures secondary to ground-level fall 7. Chronic back pain Right knee pain right knee x-ray negative for any fracture, osteoporosis changes, small effusion Patient states she was sitting on toilet at home and after standing she felt weak and fell on her knee and subsequently on her back. CT chest abdomen pelvis shows acute nondisplaced of fifth and seventh rib fractures. Left knee x-ray osteoporosis changes, small effusion, negative for fracture Right knee x-ray osteoporosis changes, small effusion, negative for fracture Plan: ? Continue pain regimen: Mild to Moderate (1-310) Acetaminophen 650mg Q6H PO PRN, - Mod to Severe (4-610) tramadol Q6H PO PRN - Severe (7-1010) morphine 1mg Q3H IV PRN - Pending PT 8. Uncontrolled tef-htcbsva-ynncrepyu diabetes mellitus type 2 [8.3] Patient has been complaining of suprapubic tenderness, urinary frequency and polydipsia for the last few days. Patient denies taking any diabetes medications despite knowing that she has diabetes. On this admission HbA1c 8.3% Plan: - Continue insulin sliding scale to cover for any blood glucose spikes 9. Essential HTN Patient takes home hydrochlorothiazide 25 mg and lisinopril 40 mg daily. Due to patient's currently soft blood pressure and recent episode of dizziness and lightheadedness, will hold patient's home pressure meds Orthostatic vitals negative Plan: ? Home medication on hold for now 10. Hyperlipidemia Patient takes home atorvastatin 10 mg daily On this admission lipid panel significant for triglycerides 109, cholesterol 137, LDL 82, HDL 33 Plan: ? Continue home medication atorvastatin 10 Mg p.o. at bedtime 11. GERD Patient takes home Omeprazole 40 mg p.o. daily. Patient was complaining of some heartburn. Plan: -Continue pantoprazole 40mg po daily 12. Dementia Per patient's daughter, patient has been forgetting things slowly however patient continues to be A &O x [address] and situation. Patient currently does not take any medications for dementia. Patient is able to do most IADLs, lives with her . 13. Depression Home medication Sertraline 100mg QD Plan: - Continue home medication Sertraline 100mg po daily Health maintenance: Disposition: IV pain control. Pending Cocci serology Diet: Cardiac and consistent Carb Low Lines: pIVs GI Prophylaxis: Pantoprazole Thrombo Prophylaxis: Heparin Code status: FULL CODE Plan of care discussed with Attending Dr. Palacios and PGY3 Dr. Georgia Owens MD PGY 1 Attending Provider Attestation/Addendum Alize, Mercy Palacios, DO, attest that I was physically present for the wallace portions of the service and evaluated the patient with the resident and I reviewed and discussed the case with the resident and agree with the resident's findings and plans of care as documented above Patient seen and evaluated this a.m. is at bedside and very concerned stating that he had never seen his be so sick in the past. Upon further questioning, patient did admit to some dysuria and urinary frequency. She complains of right knee pain and swelling, but is adamant that this started after she had fallen out of bed. She was otherwise feeling well prior to her fall. She has some dizziness getting out of bed which resulted in her fall and hurting her knees. Bilateral knee x-ray shows no evidence of fracture. Right knee shows a small effusion. Is mildly tender to palpation and edematous, but is not erythematous or warm on touch. Patient has limited range of motion due to the pain elicited on motion. However, low suspicion for septic arthritis, rather pain is secondary to trauma. Patient has a cavitary lesion in her right upper lobe which is which she seen pulmonology for. She was treated with 3 months of fluconazole as she tested positive for valley fever. Tuberculous's had been ruled out in the past. Will order Aspergillus and cocci IgM again as patient may also be having fevers from cocci. She denies any hemoptysis. Will follow-up with blood cultures and urine cultures. Patient denies any active chest pain at this time. Continue with broad-spectrum antibiotics and will have physical therapy see patient.
[2024-04-28] MEDS: VANCOMYCIN/NS 1 GM IVPB 200 ML IV ×2 (12:17→21:40)
[2024-04-28] MEDS: ONDANSETRON INJ 2 MG/ML INJ 2 ML 4 MG IV (12:33)
[2024-04-28 14:18] LABS: Troponin I 0.054 ng/mL (0.0-0.045)
[2024-04-28 16:31] LABS: Cocci Serology, IgM Positive (Negative)
[2024-04-28 16:32] LABS: Cocid Sro, CF/ID (UCD) NO CHG* See Sep Rpt
--- NOTE | 2024-04-28 17:54 | PC.NURSE ---
notified lab called and notified me of blood cultures growing gram negative rods
[2024-04-28] MEDS: FLUCONAZOLE 100 MG TABLET 400 MG PO (18:18)
[2024-04-28] MEDS: ATORVASTATIN CALCIUM 10 MG TABLET PO (21:40)
[2024-04-29] VITALS (7 sets, daily range): BP systolic 126–155; BP diastolic 69–93; PULSE 61–102; RESP 18–97; TEMP 36.1–36.9; O2SAT 96–98; BMI 42.7
[2024-04-29 05:12] LABS: Basophils % (Auto) 1 % (0-2.5); Eosinophils # (Auto) 0.1 Thou/mm3 (0.0-0.5); Eosinophils % (Auto) 1 % (0-10); Hematocrit 36.4 % (36.0-46.0); Hemoglobin 11.1 g/dL (12.0-16.0); Immature Granulocytes % (Auto) 0 % (0-0); Immature Granulocytes Auto 0.02 Thou/mm3 (0.00-0.00); Lymphocytes % (Auto) 18 % (10-50); Mean Corpuscular HGB Conc 30.5 g/dl (31.0-37.0); Mean Corpuscular Hemoglobin 29.1 pg (25.0-35.0); Mean Corpuscular Volume 95 fL (80-100); Monocytes # (Auto) 0.3 Thou/mm3 (0.0-0.8); Monocytes % (Auto) 5 % (0-12); Neutrophils % (Auto) 74 % (37-80); Nucleated Red Blood Cell % 0 /100 WBC (0); Platelet Count 144 Thou/mm3 (140-440); RDW Standard Deviation 50.8 fL (36.4-46.3); Red Blood Count 3.82 Miln/mm3 (4.00-5.20); White Blood Count 5.4 Thou/mm3 (3.6-11.0)
[2024-04-29] MEDS: PIPER/TAZO INJ 3.375 GM in SODIUM CHLORIDE 0.9% (P) 50 ML IV ×3 (05:33→21:22)
[2024-04-29 05:48] LABS: Alanine Aminotransferase 15 U/L (10-49); Albumin, Serum 3.4 gm/dL (3.4-4.8); Albumin/Globulin Ratio 1.2 (1.2-2.2); Alkaline Phosphatase 118 U/L (46-116); Anion Gap 6 (7-16); Aspartate Amino Transferase 12 U/L (0-34); BUN/Creatinine Ratio 11 Ratio (12-20); Bilirubin,Total 0.4 mg/dL (0.3-1.2); Blood Urea Nitrogen 10 mg/dL (9-23); Calcium (Corrected) 9.5 mg/dL (8.5-10.1); Carbon Dioxide 29.3 mMol/L (20.0-31.0); Chloride 104 mMol/L (98-107); Creatinine (Component) 0.9 mg/dL (0.6-1.3); Estimated Creatinine Clearance 65.1 mL/min (>60); Globulin 2.8 gm/dL (2.3-3.5); Glucose 130 mg/dL (74-106); Magnesium 2.1 mg/dL (1.6-2.6); Osmolality,Calculated 278 (275-295); Phosphorous 3.2 mg/dL (2.4-5.1); Potassium 4.2 mMol/L (3.4-5.1); Sodium 139 mMol/L (136-145); Total Protein 6.2 gm/dL (5.7-8.2); eGFR > 60 See Note
--- NOTE | 2024-04-29 08:19 | ESPR_ITS ---
Documentation for date of: 04/29/24 Subjective Subjective Interval history: Patient seen and examined at bedside. States she is feeling a little bit better. No acute distress. Has some mild TTP on the abdomen, which is soft. Afebrile overnight. Cocci IgM returned positive, and blood cultures grew GNR. Explained findings to patient, patient's spouse and daughter. Exam Vital Signs Temp Pulse Resp BP Pulse Ox O2 Del Method O2 Flow Rate 96.9 F 75 97 H 150/90 H 96 Nasal Cannula 2 04/29/24 07:34 04/29/24 07:49 04/29/24 07:34 04/29/24 07:34 04/29/24 04:00 04/29/24 07:34 04/29/24 07:34 Narrative Exam Constitutional: Elderly female, resting comfortably and sitting up right. Kazakh-speaking. HEENT: NCAT. Vision grossly intact. Respiratory: CTAB bilaterally. Cardiac: RRR. Abdomen: Soft, non-distended, mildly tender. MSK: No B/L LE edema. Skin: Warm, dry, intact. No obvious lesions. Neuro: Motor and sensation grossly intact. Psychiatric: Appropriate mood and affect. Objective Labs 04/29/24 04:15 04/29/24 04:15 Labs: Laboratory Results - last 24 hr 04/28/24 04/28/24 04/29/24 09:08 13:30 04:15 WBC 5.4 RBC 3.82 L Hgb 11.1 L Hct 36.4 MCV 95 MCH 29.1 MCHC 30.5 L RDW Std Deviation 50.8 H Plt Count 144 Neut % (Auto) 74 Lymph % (Auto) 18 [place] % (Auto) 5 Eos % (Auto) 1 Baso % (Auto) 1 Neut # (Auto) 4.0 Lymph # (Auto) 1.0 [place] # (Auto) 0.3 Eos # (Auto) 0.1 Baso # (Auto) 0.0 Immature Gran # (Auto) 0.02 H Absolute Nucleated RBC 0.00 Immature Gran % 0 Nucleated RBC % 0 Sodium 139 Potassium 4.2 Chloride 104 Carbon Dioxide 29.3 Anion Gap 6 L BUN 10 Creatinine 0.9 Estim Creat Clear Calc 65.1 eGFR > 60 BUN/Creatinine Ratio 11 L Glucose 130 H Calculated Osmolality 278 Calcium 9.0 Corrected Calcium 9.5 Phosphorus 3.2 Magnesium 2.1 Total Bilirubin 0.4 AST 12 ALT 15 Alkaline Phosphatase 118 H Troponin I 0.054 H* Total Protein 6.2 Albumin 3.4 Globulin 2.8 Albumin/Globulin Ratio 1.2 Coccidioides IgM Ab Positive A ABG Interpretation ABG results: 04/27/24 21:43 VBG pH 7.47 VBG pCO2 36 VBG pO2 69 H VBG Base Excess 3 Quality Measures Quality Measures sepsis Current suspected stage: sepsis Possible source: unknown Blood cultures ordered: yes Antibiotic ordered: Yes Advance care planning discussed with:: patient and spouse Assessment & Plan Assessment Current Active Medications: Generic Name Dose Route Start Last Admin Trade Name Freq PRN Reason Stop Dose Admin Acetaminophen 650 mg 04/28/24 02:23 Acetaminophen 325 Mg Tablet PO 05/28/24 02:22 Q6H PRN Fever >100.4 or Pain 1-3 Atorvastatin Calcium 10 mg 04/28/24 21:00 04/28/24 21:40 Atorvastatin Calcium 10 Mg Tablet PO 05/28/24 20:59 10 mg HS TAMARA Administration Dextrose 25 ml 04/28/24 03:59 Dextrose 50%-Water Inj 50 Ml Syringe IV 05/28/24 03:58 Q15MIN PRN BG 50-70 responsive npo pt Dextrose 50 ml 04/28/24 03:59 Dextrose 50%-Water Inj 50 Ml Syringe IV 05/28/24 03:58 Q15MIN PRN BG <50 OR BG <70 & pt unresponsive Fluconazole 400 mg 04/28/24 18:15 04/28/24 18:18 Fluconazole 100 Mg Tablet PO 05/05/24 18:14 400 mg QDAY TAMARA Administration Glucagon 1 mg 04/28/24 03:59 Glucagon Inj 1 Mg Vial IM Q15MIN PRN BG <70, and no IV access Heparin Sodium (Porcine) 5,000 unit 04/28/24 09:00 04/28/24 21:38 Heparin Sod Inj 5000 Unit/Ml Vial SC 05/12/24 08:59 5,000 unit Q12HR TAMARA Administration Piperacillin Sod/Tazobactam 50 mls @ 12.5 mls/hr 04/28/24 06:15 04/29/24 05:33 Sod 3.375 gm/ Sodium Chloride IV 05/05/24 06:14 12.5 mls/hr Q8HR TAMARA Administration Protocol Insulin Human Lispro 0 unit 04/28/24 07:30 12/28/24 17:03 Insulin Lispro (Admelog) 1 Unit/0.01 Ml Unit SC 05/28/24 07:29 1 unit AC TAMARA Administration Protocol Morphine Sulfate 1 mg 04/28/24 02:23 Morphine Sulf Inj 10 Mg/Ml Vial IVP 05/03/24 02:22 Q3H PRN PAIN SCALE 7-10 (Severe Ondansetron HCl 4 mg 04/28/24 02:23 04/28/24 12:33 Ondansetron Inj 2 Mg/Ml Inj 2 Ml IV 05/28/24 02:22 4 mg Q6H PRN Administration NAUSEA OR VOMITING Protocol Pantoprazole Sodium 40 mg 04/28/24 09:00 04/28/24 08:55 Pantoprazole 40 Mg Tablet PO 05/28/24 08:59 40 mg QDAY TAMARA Administration Sennosides 1 tab 04/28/24 09:00 04/28/24 08:55 Senna Tablet PO 05/28/24 08:59 1 tab QDAY TAMARA Administration Protocol Sertraline HCl 100 mg 04/28/24 09:00 04/28/24 08:55 Sertraline Hcl 25 Mg Tablet PO 05/28/24 08:59 100 mg QDAY TAMARA Administration Tramadol HCl 50 mg 04/28/24 02:23 04/28/24 04:21 Tramadol Hcl 50 Mg Tablet PO 05/03/24 02:22 50 mg Q6HR PRN Administration PAIN SCALE 4-6 (Moderate Plan Patient is a 74-year-old female with a past medical history significant for right lung cavitary lesion, pulmonary coccidiomycosis, essential hypertension, dementia, depression, hyperlipidemia, chronic back pain and GERD who presented to the ED after a ground-level fall and admitted for sepsis secondary to Valley Fever and GNR Bacteremia. Sepsis secondary to GNR Bacteremia and Valley Fever Right cavitary lesion-stable Patient met SIRS criteria on admission. History of valley fever treated outpatient with fluconazole Large cavitary lesion seen on CT stable in size, previously worked up for TB which was negative Blood culture grew GNR preliminary - Fluconazole 400mg Qday for Valley Fever - Follow up BCx - Follow up urine culture - continue Zosyn 04/27-; anticipate de-escalate once cultures return - Discontinue Vancomycin Troponiemia 0.064, 0.068 Suspect Type II in the setting of sepsis EKG no significant ST changes Follow up echo DM2 A1c 8.3 - Hold home meds - ISS Essential HTN ? Continue home medication atorvastatin 10 Mg p.o. at bedtime HLD GERD History of depression - Continue home atorvastatin - Continue pantoprazole 40mg po daily - Continue home medication Sertraline 100mg po daily Non-displaced left rib fractures secondary to ground-level fall Chronic back pain Right knee pain right knee x-ray negative for any fracture, osteoporosis changes, small effusion Patient states she was sitting on toilet at home and after standing she felt weak and fell on her knee and subsequently on her back. CT chest abdomen pelvis shows acute nondisplaced of fifth and seventh rib fractures. Left knee x-ray osteoporosis changes, small effusion, negative for fracture Right knee x-ray osteoporosis changes, small effusion, negative for fracture ? Continue pain regimen: Mild to Moderate (-07/09) Acetaminophen 650mg Q6H PO PRN, - Mod to Severe (-10/09) tramadol Q6H PO PRN - Severe (-02/08) morphine 1mg Q3H IV PRN - Pending PT History of Dementia Per patient's daughter, patient has been forgetting things slowly however patient continues to be A &O x [address] and situation. Patient currently does not take any medications for dementia. Patient is able to do most IADLs, lives with her . Health maintenance: Disposition: Admit for sepsis 2/2 Valley Fever, GNR Bacteremia. Pending blood and urine culture Diet: Cardiac and consistent Carb Low Lines: pIVs GI Prophylaxis: Pantoprazole Thrombo Prophylaxis: Heparin Code status: FULL CODE I have reviewed and discussed the patient's care with my attending, Dr. Suzanne Ho MD PGY-3 Attending Provider Attestation/Addendum I, Mercy Palacios DO, attest that I was physically present for the wallace portions of the service and evaluated the patient with the resident and I reviewed and discussed the case with the resident and agree with the resident's findings and plans of care as documented above Patient seen and evaluated this AM. No acute events overnight. Patient has been afebrile. at bedside and anxious for patient to get up with PT today. Explained to patient and that patient has GNR in blood cultures, likely stemming from UTI as patient reported dysuria prior to presentation. She is noted to have previous urine cultures positive for UTI as well. Will keep zosyn and narrow once cultures are finalized as patient may have a chance of having resistant bacteria. Will DC vancomycin as she is MRSA negative. Continue with fluconazole.
[2024-04-29] MEDS: INSULIN LISPRO (AdmeLOG) 1 UNIT/0.01 ML UNIT SC ×3 (08:29→17:21)
[2024-04-29] MEDS: SENNA TABLET 1 TAB PO (08:38)
[2024-04-29] MEDS: SERTRALINE HCL 25 MG TABLET 100 MG PO (08:38)
[2024-04-29] MEDS: FLUCONAZOLE 100 MG TABLET 400 MG PO (08:38)
[2024-04-29] MEDS: PANTOPRAZOLE 40 MG TABLET PO (08:39)
[2024-04-29] MEDS: HEPARIN SOD INJ 5000 UNIT/ML VIAL SC ×2 (08:39→20:51)
[2024-04-29] MEDS: ATORVASTATIN CALCIUM 10 MG TABLET PO (20:50)
[2024-04-30] VITALS (8 sets, daily range): BP systolic 135–154; BP diastolic 76–93; PULSE 58–83; RESP 17–19; TEMP 35.9–36.7; O2SAT 90–98; BMI 43.4
[2024-04-30] MEDS: PIPER/TAZO INJ 3.375 GM in SODIUM CHLORIDE 0.9% (P) 50 ML IV (05:43)
[2024-04-30 06:04] LABS: Basophils % (Auto) 1 % (0-2.5); Eosinophils # (Auto) 0.1 Thou/mm3 (0.0-0.5); Eosinophils % (Auto) 2 % (0-10); Hematocrit 38.7 % (36.0-46.0); Hemoglobin 11.8 g/dL (12.0-16.0); Immature Granulocytes % (Auto) 0 % (0-0); Immature Granulocytes Auto 0.01 Thou/mm3 (0.00-0.00); Lymphocytes # (Auto) 1.3 Thou/mm3 (1.0-4.8); Lymphocytes % (Auto) 26 % (10-50); Mean Corpuscular HGB Conc 30.5 g/dl (31.0-37.0); Mean Corpuscular Hemoglobin 28.3 pg (25.0-35.0); Mean Corpuscular Volume 93 fL (80-100); Monocytes # (Auto) 0.5 Thou/mm3 (0.0-0.8); Monocytes % (Auto) 9 % (0-12); Neutrophils # (Auto) 3.1 Thou/mm3 (1.8-7.7); Neutrophils % (Auto) 62 % (37-80); Nucleated Red Blood Cell % 0 /100 WBC (0); Platelet Count 100 Thou/mm3 (140-440); RDW Standard Deviation 49.1 fL (36.4-46.3); Red Blood Count 4.17 Miln/mm3 (4.00-5.20)
[2024-04-30 06:33] LABS: Alanine Aminotransferase 13 U/L (10-49); Albumin, Serum 3.3 gm/dL (3.4-4.8); Albumin/Globulin Ratio 1.2 (1.2-2.2); Alkaline Phosphatase 114 U/L (46-116); Anion Gap 7 (7-16); Aspartate Amino Transferase 14 U/L (0-34); BUN/Creatinine Ratio 13 Ratio (12-20); Bilirubin,Total 0.3 mg/dL (0.3-1.2); Blood Urea Nitrogen 10 mg/dL (9-23); Calcium 9.5 mg/dL (8.3-10.6); Calcium (Corrected) 10.1 mg/dL (8.5-10.1); Chloride 103 mMol/L (98-107); Creatinine (Component) 0.8 mg/dL (0.6-1.3); Globulin 2.8 gm/dL (2.3-3.5); Glucose 116 mg/dL (74-106); Magnesium 1.9 mg/dL (1.6-2.6); Osmolality,Calculated 279 (275-295); Potassium 4.6 mMol/L (3.4-5.1); Sodium 140 mMol/L (136-145); Total Protein 6.1 gm/dL (5.7-8.2); eGFR > 60 See Note
[2024-04-30] MEDS: SERTRALINE HCL 25 MG TABLET 100 MG PO (08:11)
[2024-04-30] MEDS: SENNA TABLET 1 TAB PO (08:11)
[2024-04-30] MEDS: FLUCONAZOLE 100 MG TABLET 400 MG PO (08:11)
[2024-04-30] MEDS: HEPARIN SOD INJ 5000 UNIT/ML VIAL SC ×2 (08:12→20:43)
[2024-04-30] MEDS: PANTOPRAZOLE 40 MG TABLET PO (08:12)
[2024-04-30] MEDS: amLODIPine BESYLATE 5 MG TABLET PO (08:12)
[2024-04-30] MEDS: POLYETHYLENE GLYCOL 17 GM PACKET PO (09:47)
[2024-04-30] MEDS: INSULIN LISPRO (AdmeLOG) 1 UNIT/0.01 ML UNIT SC ×2 (11:56→17:56)
--- NOTE | 2024-04-30 12:01 | ESPR_ITS ---
<Statement entered by Eden Ho MD - 04/30/24 13:01> I discussed with and supervised my co-resident involved in the care of this patient. I agree with the assessment and plan as documented above. Patient seen and examined at bedside. Patient and patient's spouse updated. Patient has E Coli UTI likely spread to blood causing bacteremia. Will de- escalate antibiotics to augmentin to complete 10-day course of antibiotics. Will continue fluconazole at discharge for Valley Fever. Pending PT as patient feels very week. She walks at home at baseline. Anticipate discharge within the next 24-48 hours. Eden Ho MD PGY-3 Documentation for date of: 04/30/24 Subjective Subjective Interval history: 04/30: NAEO. Mildly hypertensive in AM at 154/88 however rest of VSS. Labs normal. Blood cx, Urine cx (+) for E. coli. Can switch to Augmentin x10 days. Currently pending PT exam and recs, ECHO. Exam Vital Signs Temp Pulse Resp BP Pulse Ox O2 Del Method O2 Flow Rate 97.1 F 68 19 153/93 H 98 Nasal Cannula 2 04/30/24 08:00 04/30/24 08:12 04/30/24 08:00 04/30/24 08:12 04/30/24 08:00 04/30/24 08:00 04/30/24 08:00 Narrative Exam Constitutional: Elderly female, resting comfortably and sitting up right. English-speaking. HEENT: NCAT. Vision grossly intact. Respiratory: CTAB bilaterally. Cardiac: RRR. Abdomen: Soft, non-distended, mildly tender. MSK: No B/L LE edema. Skin: Warm, dry, intact. No obvious lesions. Neuro: Motor and sensation grossly intact. Psychiatric: Appropriate mood and affect. Objective Labs 04/30/24 04:39 04/30/24 04:39 Labs: Laboratory Results - last 24 hr 04/30/24 04:39 WBC 5.0 RBC 4.17 Hgb 11.8 L Hct 38.7 MCV 93 MCH 28.3 MCHC 30.5 L RDW Std Deviation 49.1 H Plt Count 100 L D Neut % (Auto) 62 Lymph % (Auto) 26 Curry % (Auto) 9 Eos % (Auto) 2 Baso % (Auto) 1 Neut # (Auto) 3.1 Lymph # (Auto) 1.3 Curry # (Auto) 0.5 Eos # (Auto) 0.1 Baso # (Auto) 0.0 Immature Gran # (Auto) 0.01 H Absolute Nucleated RBC 0.00 Immature Gran % 0 Nucleated RBC % 0 Sodium 140 Potassium 4.6 Chloride 103 Carbon Dioxide 30.0 Anion Gap 7 BUN 10 Creatinine 0.8 Estim Creat Clear Calc 74.0 eGFR > 60 BUN/Creatinine Ratio 13 Glucose 116 H Calculated Osmolality 279 Calcium 9.5 Corrected Calcium 10.1 Magnesium 1.9 Total Bilirubin 0.3 AST 14 ALT 13 Alkaline Phosphatase 114 Total Protein 6.1 Albumin 3.3 L Globulin 2.8 Albumin/Globulin Ratio 1.2 ABG Interpretation ABG results: 04/27/24 21:43 VBG pH 7.47 VBG pCO2 36 VBG pO2 69 H VBG Base Excess 3 Quality Measures Quality Measures sepsis Current suspected stage: sepsis Possible source: unknown Blood cultures ordered: yes Antibiotic ordered: Yes Advance care planning discussed with:: patient Assessment & Plan Assessment Current Active Medications: Generic Name Dose Route Start Last Admin Trade Name Freq PRN Reason Stop Dose Admin Acetaminophen 650 mg 04/28/24 02:23 Acetaminophen 325 Mg Tablet PO 05/28/24 02:22 Q6H PRN Fever >100.4 or Pain 1-3 Amlodipine Besylate 5 mg 04/30/24 09:00 04/30/24 08:12 Amlodipine Besylate 5 Mg Tablet PO 05/30/24 08:59 5 mg QDAY TAMARA Administration Atorvastatin Calcium 10 mg 04/28/24 21:00 04/29/24 20:50 Atorvastatin Calcium 10 Mg Tablet PO 05/28/24 20:59 10 mg HS TAMARA Administration Dextrose 25 ml 04/28/24 03:59 Dextrose 50%-Water Inj 50 Ml Syringe IV 05/28/24 03:58 Q15MIN PRN BG 50-70 responsive npo pt Dextrose 50 ml 04/28/24 03:59 Dextrose 50%-Water Inj 50 Ml Syringe IV 05/28/24 03:58 Q15MIN PRN BG <50 OR BG <70 & pt unresponsive Fluconazole 400 mg 04/28/24 18:15 04/30/24 08:11 Fluconazole 100 Mg Tablet PO 05/05/24 18:14 400 mg QDAY TAMARA Administration Glucagon 1 mg 04/28/24 03:59 Glucagon Inj 1 Mg Vial IM Q15MIN PRN BG <70, and no IV access Heparin Sodium (Porcine) 5,000 unit 04/28/24 09:00 04/30/24 08:12 Heparin Sod Inj 5000 Unit/Ml Vial SC 05/12/24 08:59 5,000 unit Q12HR TAMARA Administration Piperacillin Sod/Tazobactam 50 mls @ 12.5 mls/hr 04/28/24 06:15 04/30/24 05:43 Sod 3.375 gm/ Sodium Chloride IV 05/05/24 06:14 12.5 mls/hr Q8HR TAMARA Administration Protocol Insulin Human Lispro 0 unit 04/28/24 07:30 04/30/24 11:56 Insulin Lispro (Admelog) 1 Unit/0.01 Ml Unit SC 05/28/24 07:29 1 unit AC TAMARA Administration Protocol Morphine Sulfate 1 mg 04/28/24 02:23 Morphine Sulf Inj 10 Mg/Ml Vial IVP 05/03/24 02:22 Q3H PRN PAIN SCALE 7-10 (Severe Ondansetron HCl 4 mg 04/28/24 02:23 04/28/24 12:33 Ondansetron Inj 2 Mg/Ml Inj 2 Ml IV 05/28/24 02:22 4 mg Q6H PRN Administration NAUSEA OR VOMITING Protocol Pantoprazole Sodium 40 mg 04/28/24 09:00 04/30/24 08:12 Pantoprazole 40 Mg Tablet PO 05/28/24 08:59 40 mg QDAY TAMARA Administration Polyethylene Glycol 17 gm 04/30/24 09:15 04/30/24 09:47 Polyethylene Glycol 17 Gm Packet PO 05/30/24 09:14 17 gm QDAY TAMARA Administration Sennosides 1 tab 04/28/24 09:00 04/30/24 08:11 Senna Tablet PO 05/28/24 08:59 1 tab QDAY TAMARA Administration Protocol Sertraline HCl 100 mg 04/28/24 09:00 04/30/24 08:11 Sertraline Hcl 25 Mg Tablet PO 05/28/24 08:59 100 mg QDAY TAMARA Administration Tramadol HCl 50 mg 04/28/24 02:23 04/28/24 04:21 Tramadol Hcl 50 Mg Tablet PO 05/03/24 02:22 50 mg Q6HR PRN Administration PAIN SCALE 4-6 (Moderate Plan Patient is a 74-year-old female with a past medical history significant for right lung cavitary lesion, pulmonary coccidiomycosis, essential hypertension, dementia, depression, hyperlipidemia, chronic back pain and GERD who presented to the ED after a ground-level fall and admitted for sepsis secondary to Valley Fever and GNR Bacteremia. Sepsis secondary to GNR Bacteremia and Valley Fever Right cavitary lesion-stable Patient met SIRS criteria on admission. History of valley fever treated outpatient with fluconazole Large cavitary lesion seen on CT stable in size, previously worked up for TB which was negative Blood culture grew GNR preliminary - Fluconazole 400mg Qday for Valley Fever 04/30 - BCx, Urine Cx (+) for E coli - Discontinued Vancomycin - DC Zosyn 04/27-04/30 - Will start on augmentin for 10 days 04/30- Troponiemia 0.064, 0.068 Suspect Type II in the setting of sepsis EKG no significant ST changes Follow up ECHO DM2 A1c 8.3 - Hold home meds - ISS Essential HTN ? Continue home medication atorvastatin 10 Mg p.o. at bedtime HLD GERD History of depression - Continue home atorvastatin - Continue pantoprazole 40mg po daily - Continue home medication Sertraline 100mg po daily Non-displaced left rib fractures secondary to ground-level fall Chronic back pain Right knee pain right knee x-ray negative for any fracture, osteoporosis changes, small effusion Patient states she was sitting on toilet at home and after standing she felt weak and fell on her knee and subsequently on her back. CT chest abdomen pelvis shows acute nondisplaced of fifth and seventh rib fractures. Left knee x-ray osteoporosis changes, small effusion, negative for fracture Right knee x-ray osteoporosis changes, small effusion, negative for fracture ? Continue pain regimen: Mild to Moderate (1-3/10) Acetaminophen 650mg Q6H PO PRN, - Mod to Severe (4-6/10) tramadol Q6H PO PRN - Severe (7-10/10) morphine 1mg Q3H IV PRN - Pending PT History of Dementia Per patient's daughter, patient has been forgetting things slowly however patient continues to be A &O x [address] and situation. Patient currently does not take any medications for dementia. Patient is able to do most IADLs, lives with her . Health maintenance: Disposition: Admit for sepsis 2 Valley Fever, GNR Bacteremia. Pending PT exam/recommendations and ECHO. Diet: Cardiac and consistent Carb Low Lines: pIVs GI Prophylaxis: Pantoprazole Thrombo Prophylaxis: Heparin Code status: FULL CODE I have reviewed and discussed the patient's care with my attending, Dr. Suzanne Hinton DO, PGY1 Attending Provider Attestation/Addendum I, Mercy Palacios DO, attest that I was physically present for the wallace portions of the service and evaluated the patient with the resident and I reviewed and discussed the case with the resident and agree with the resident's findings and plans of care as documented above Patient seen and eval this a.m. Patient states that she is feeling a little better. Urine cultures positive for ESBL E. coli and blood cultures show pansensitive E. coli. Both are sensitive to Augmentin. Echo had been ordered, pending results. PT also ordered as patient reports feeling very weak. Patient can continue Augmentin p.o. at home for another 7 days. Anticipate discharge within the next 24 to 48 hours.
--- NOTE | 2024-04-30 14:39 | PC.SS ---
Rounding note: patient is pending PT evaluation.
--- NOTE | 2024-04-30 15:16 | PC.SS ---
Addendum entered by MONICA Kennedy 04/30/24 15:31: Patient was recommended for home health. No preferred identified. Original Note: Physical therapy has informed that the patient will need a front wheel walker upon discharge. Walkers The diagnosis creates mobility limitation that significantly impairs ability to participate in the patients activities of daily living either in their entirety, or in a reasonable time frame. Also the patient is able to safely use the walker and the patient?s mobility is sufficiently resolved with the use of the walker and cane has been ruled out.
--- NOTE | 2024-04-30 15:30 | PC.SS ---
Addendum entered by MONICA Kennedy 05/01/24 14:24: DME delivered to patient per nurse. Original Note: DME inquiry sent via [employer]. Pending responses.
--- NOTE | 2024-04-30 18:04 | PC.CM ---
Entered pt. on [facility] for HH referral.
[2024-04-30] MEDS: ATORVASTATIN CALCIUM 10 MG TABLET PO (20:44)
[2024-04-30] MEDS: AMOXICILLIN/POT CLAV 500 MG TABLET PO (20:44)
[2024-05-01] VITALS (10 sets, daily range): BP systolic 142–176; BP diastolic 56–104; PULSE 61–98; RESP 16–18; TEMP 36.2–36.7; O2SAT 89–95; BMI 38.4
--- NOTE | 2024-05-01 04:23 | PC.NURSE ---
MD Lenz made aware of BP 171/101 with a repeat of 178/104, per MD to give the norvasc 5mg dose now for morning schedule. Will administer meds per MD order.
[2024-05-01] MEDS: amLODIPine BESYLATE 5 MG TABLET PO ×2 (04:27→06:05)
[2024-05-01 05:55] LABS: Basophils % (Auto) 1 % (0-2.5); Eosinophils # (Auto) 0.1 Thou/mm3 (0.0-0.5); Eosinophils % (Auto) 1 % (0-10); Hematocrit 37.7 % (36.0-46.0); Hemoglobin 11.9 g/dL (12.0-16.0); Immature Granulocytes % (Auto) 0 % (0-0); Lymphocytes # (Auto) 1.2 Thou/mm3 (1.0-4.8); Lymphocytes % (Auto) 28 % (10-50); Mean Corpuscular HGB Conc 31.6 g/dl (31.0-37.0); Mean Corpuscular Hemoglobin 28.8 pg (25.0-35.0); Mean Corpuscular Volume 91 fL (80-100); Monocytes # (Auto) 0.4 Thou/mm3 (0.0-0.8); Monocytes % (Auto) 9 % (0-12); Neutrophils # (Auto) 2.6 Thou/mm3 (1.8-7.7); Neutrophils % (Auto) 60 % (37-80); Nucleated Red Blood Cell % 0 /100 WBC (0); Platelet Count 141 Thou/mm3 (140-440); RDW Standard Deviation 47.8 fL (36.4-46.3); Red Blood Count 4.13 Miln/mm3 (4.00-5.20); White Blood Count 4.2 Thou/mm3 (3.6-11.0)
[2024-05-01 07:00] LABS: Alanine Aminotransferase 11 U/L (10-49); Albumin, Serum 3.7 gm/dL (3.4-4.8); Albumin/Globulin Ratio 1.3 (1.2-2.2); Alkaline Phosphatase 116 U/L (46-116); Anion Gap 8 (7-16); Aspartate Amino Transferase < 10 U/L (0-34); BUN/Creatinine Ratio 14 Ratio (12-20); Bilirubin,Total 0.4 mg/dL (0.3-1.2); Blood Urea Nitrogen 11 mg/dL (9-23); Calcium 9.3 mg/dL (8.3-10.6); Calcium (Corrected) 9.5 mg/dL (8.5-10.1); Carbon Dioxide 31.4 mMol/L (20.0-31.0); Chloride 100 mMol/L (98-107); Creatinine (Component) 0.8 mg/dL (0.6-1.3); Estimated Creatinine Clearance 76.7 mL/min (>60); Globulin 2.9 gm/dL (2.3-3.5); Glucose 126 mg/dL (74-106); Magnesium 1.8 mg/dL (1.6-2.6); Osmolality,Calculated 278 (275-295); Potassium 3.9 mMol/L (3.4-5.1); Sodium 139 mMol/L (136-145); Total Protein 6.6 gm/dL (5.7-8.2); eGFR > 60 See Note
[2024-05-01] MEDS: INSULIN LISPRO (AdmeLOG) 1 UNIT/0.01 ML UNIT SC ×2 (07:56→11:47)
[2024-05-01] MEDS: AMOXICILLIN/POT CLAV 500 MG TABLET PO (08:23)
[2024-05-01] MEDS: PANTOPRAZOLE 40 MG TABLET PO (08:23)
[2024-05-01] MEDS: SENNA TABLET 1 TAB PO (08:24)
[2024-05-01] MEDS: POLYETHYLENE GLYCOL 17 GM PACKET PO (08:24)
[2024-05-01] MEDS: FLUCONAZOLE 100 MG TABLET 400 MG PO (08:25)
[2024-05-01] MEDS: LOSARTAN POTASSIUM 25 MG TABLET PO (08:26)
[2024-05-01] MEDS: SERTRALINE HCL 25 MG TABLET 100 MG PO (08:27)
[2024-05-01] MEDS: ONDANSETRON INJ 2 MG/ML INJ 2 ML 4 MG IV (08:28)
[2024-05-01] MEDS: HEPARIN SOD INJ 5000 UNIT/ML VIAL SC (08:32)
--- NOTE | 2024-05-01 13:17 | ESDS_ITS ---
<Statement entered by Mercy Palacios DO - 05/01/24 13:48> I, Mercy Palacios DO, attest that I was physically present for the wallace portions of the service and evaluated the patient with the resident and I reviewed and discussed the case with the resident and agree with the resident's findings and plans of care as documented above <Statement entered by Chandana Vang MD - 05/01/24 13:36> Patient appears to be doing much better today. Patient blood pressure well- controlled today and is stable for discharge. Patient is to continue taking Augmentin for 7 more days. Patient also to continue taking fluconazole for repeat positive cocci serology. Patient to follow-up with PCP regarding cocci management. Patient to continue blood pressure medication and see PCP within 1 week of discharge. Case discussed with team. Chandana Vang MD PGY3 Planned Discharge Date 05/01/24 DS: Providers Provider Date of admission: 04/28/24 02:14 Primary care physician: Jacquelyn Martinez NP Admitting Provider: Bryce Calle MD Attending Provider on Admission: Bryce Calle MD Consults: 04/28/24 02:50 Referral Physical Therapy Routine Comment: Physician Instructions: 04/30/24 15:03 Referral Registered Dietitian Routine Comment: Attending Provider on DC: Dr. Mercy Palacios DO Discharging Provider: Silvino Hinton DO DS: Diagnosis Problem List Completed Was Problem List Reviewed/Reconciled?: Yes Hospital Course Hospital Course Hospital course: Sepsis secondary to E.coli Bacteremia and UTI Pulmonary coccidiomycosis Right cavitary lesion-stable Troponiemia 0.064, 0.068 DM2 A1c 8.3 Essential HTN HLD GERD History of depression Non-displaced left rib fractures secondary to ground-level fall Chronic back pain History of Dementia Patient is a 74-year-old female with past medical history significant for hypertension, diabetes, dementia, depression, hyperlipidemia, chronic back pain, GERD who presented to the ED after sustaining ground level fall. Patient was using the restroom, and when she was about to rise, patient felt dizzy and lightheaded, and her legs gave out and fell on her knees. Patient continues to report 7/10 right knee pain and left rib cage pain, but denies any numbness or loss of sensation. Associated symptoms include having nausea and headache earlier today, and does report low fluid intake. Of note, patient has been also feeling thirsty, suprapubic tenderness, and increased urinary frequency for the last 3 days. In the ED, patient presented with a blood pressure of 147/86, heart rate of 133 and a fever of 103.9, saturating 88% on room air, requiring nasal cannula 6 L. Labs significant for elevated glucose, elevated lactate, but downtrending, and elevated troponin x2. UA negative for UTI. Sepsis alert was called in the ED, due to patient having 2 out of 4 SIRS criteria with elevated lactate. Chest x-ray showed stable scarring right upper lobe no pneumonia or pulmonary edema. EKG showed aVF sinus tachycardia. Gallbladder showed normal gallbladder, common bile duct, and hepatomegaly. Chest CT abdomen pelvis showed stable cavitary lesion with no pneumothorax, but acute left fifth and seventh rib fractures and chronic 10th, 9th, and 8th posterio ribs. Patient was admitted to telemetry for further management of sepsis 2/2 bacteremia and UTI with E. coli. Over the course of patient's hospital stay she was treated with appropriate antibiotics and fluid resuscitation. Antibiotic regimen adjusted as cultures resulted. Troponins were elevated, however echo showed normal LV, RV function with ejection fraction of 60%. Most likely stress ischemia. Patient's pain was adequately controlled over hospital stay. At time of discharge patient is medically stable. Patient will discharge home with antibiotics and home health. Patient to continue her outpatient antifungal treatment. patient to return to the emergency department if symptoms worsen/persist. Patient and at bedside are amenable to discharge. Status at Discharge Cognitive/behavioral status at discharge: Stable at discharge Time Spent with Patient Time attestation: Total time spent providing and/or coordinating discharge services: >30 min Home Health Home Health Referral Orders: 04/30/24 15:16 Home Health Referral Routine Reason For Exam: bacteremia Home-Bound The patient must either because of illness or injury, need the aid of supportive devices such as crutches, canes, wheelchairs, and walkers; the use of special transportation; or the assistance of another person in order to leave their place of residence; OR have a condition such that leaving his or her home is medically contraindicated. In addition, the patient also meets the following criteria: patient is normally unable to leave the home and leaving home requires considerable taxing effort. Addendum to Home Health Certification Practitioner's Certification: I certify that the patient has been under my care in the hospital and the care of attending physician (see below). We had a [id number] encounter on (see date below). My clinical findings indicate that the patient is home bound per the above criteria and the Home Health Services noted in these orders are medically necessary. The primary reason for the [id number] encounter is related to the fact that the patient requires home health services. Date Certifying [id number] Physician Encounter: 04/28/24 Physician's Name who will Assume Oversight for Services: Jacquelyn Martinez Physician's Phone No.who will Assume Oversight for Service: DRIER FEEDER - Community Resources: No PT to Evaluate: Yes PT to evaluate and provide a treatmnet plan to increase patient's mobility and strength. Wound Care: No IV Therapy: No RN Safety Evaluation: Yes RN to evaluate and create a plan of care that will produce positive outcomes. Palliative Treatment: No Palliative treatment and evaluate the need for hospice. Home Health Aide - Personal Care: Yes Home Health Aide to assist with any ADL's. Exam Vital Signs Temp Pulse Resp BP Pulse Ox O2 Del Method O2 Flow Rate 98.0 F 79 18 176/104 H 95 Room Air 2 05/01/24 08:00 05/01/24 12:00 05/01/24 08:00 05/01/24 08:26 05/01/24 08:00 05/01/24 08:00 04/30/24 16:00 Narrative Exam Constitutional: Elderly female, resting comfortably and sitting up right. Estonian-speaking. HEENT: NCAT. Vision grossly intact. Respiratory: CTAB bilaterally. Cardiac: RRR. Abdomen: Soft, non-distended, mildly tender. MSK: No B/L LE edema. Skin: Warm, dry, intact. No obvious lesions. Neuro: Motor and sensation grossly intact. Psychiatric: Appropriate mood and affect. Discharge Plan Plan Patient Disposition: Home w/HOME HEALTH Patient condition on transfer: Stable Prescriptions/Referrals Prescriptions/Med Rec: New fluconazole 200 mg tablet 400 mg PO QDAY 30 Days Qty: 60 0RF amlodipine 10 mg tablet 10 mg PO QDAY Qty: 30 0RF losartan 100 mg tablet 100 mg PO QDAY Qty: 30 0RF Rx Instructions: Hold if SBP < 120 amoxicillin-pot clavulanate 500-125 mg tablet 1 tab PO BID Qty: 14 0RF Continued atorvastatin 10 mg Tablet 10 mg PO QDAY omeprazole 40 mg Capsule,Delayed Release(Dr/Ec) 40 mg PO QDAY sertraline 100 mg Tablet 100 mg PO QDAY ondansetron 4 mg tablet,disintegrating 4 mg PO Q8H PRN (Reason: nausea and vomiting) Qty: 15 0RF gabapentin 100 mg capsule 100 mg PO 3XD Discontinued hydrochlorothiazide 25 MG tablet 25 mg PO QAM Qty: 0 lisinopril 40 MG tablet 40 mg PO QDAY Qty: 0 ibuprofen 800 mg tablet 800 mg PO TID PRN (Reason: pain) Qty: 30 0RF naproxen 500 mg tablet 500 mg PO BID Qty: 60 0RF ondansetron HCl [Zofran] 4 mg tablet 4 mg PO Q8H Qty: 30 0RF amlodipine 5 mg tablet 5 mg PO QDAY Patient Comments: TOME KOJO TABLETA POR VIA ORAL A DIARIO EN LA MANANA POR 90 TAVARES PARA LA PRESION diclofenac sodium 75 mg tablet,delayed release (DR/EC) 75 mg PO 2XD Patient Comments: TOME KOJO TABLETA POR VIA ORAL DOS VECES AL TAMI CON ALIMENTO CUANDO SEA NECESARIO PARA EL DOLOR. losartan-hydrochlorothiazide 100-25 mg tablet 1 tab PO 1XD Patient Comments: TOME KOJO TABLETA POR V A ORAL TODOS LOS D Referrals: Jacquelyn Martinez NP [Primary Care Provider] - Patient/Caregiver Discharge Instructions Other Discharge Activity Instructions:: Please follow up with your Primary Care Provider within 1 week of discharge. Please take amlodipine 10 mg once a day Please take Augmentin 500-125 mg twice a day for 7 days Please take fluconazole 200 mg once a day for 60 days Please take losartan 100 mg once a day Please follow-up with PCP regarding cocci management which required treatment for at least 3 to 6 months. Also get a liver enzyme test with PCP to assess any effects from medication. Education Materials: Urinary Tract Infections in Women, Sepsis, Diabetes Care Ch, Understanding Coccidioidomycosis Print Language: Estonian Stand Alone Forms: [employer] Award Info., Patient Portal Info Letter Discharge Order Discharge Orders: Discharge (Routine); Ordered 05/01/24 Ordered By: Deepika Hinton Quality Discharge Quality Measures VTE prophylaxis
--- NOTE | 2024-05-01 13:47 | PC.PT ---
Patient is D/C from PT services secondary to she is xI with bed mobility, transfers, and ambulation with a FWW. Patient is clear to ambulate in the [facility] with her FWW and her . RN notified.
--- NOTE | 2024-05-02 07:59 | PC.CM ---
Addendum entered by Hood Ash RN 05/02/24 12:09: [facility] accepted the pt. Booked [facility]. Pending start of care date. Original Note: No preference of HH agency per SS notes. HH referral sent on [facility]. Awaiting responses. Pending Start of care date.
[2024-05-04 17:51] LABS: Index Value <0.50
[2024-05-07 06:45] LABS: Aspergillus Ag, Ser* NOT DETECTED
--- NOTE | 2024-05-07 08:04 | PC.CC ---
SOC is 05/07/24
== END 2024-05-01 17:39 | disposition home health service (06) | DRG 871 ==
LOC: SERX 04-28 01:56 → SERHOLD 04-28 02:34 → S3NX 04-28 03:52
PROVIDERS: Student in an Organized Health Care Education/Training Program; Admitting Provider Student in an Organized Health Care Education/Training Program; Emergency Provider Emergency Medicine; PCP Nurse Practitioner Family; Visit Provider Student in an Organized Health Care Education/Training Program
DX: A41.51 Sepsis due to Escherichia coli [E. coli] (principal); J96.01 Acute respiratory failure with hypoxia; N39.0 Urinary tract infection, site not specified; S22.42XA Multiple fractures of ribs, left side, initial encounter for closed fracture; F03.93 Unspecified dementia, unspecified severity, with mood disturbance; B38.0 Acute pulmonary coccidioidomycosis; E87.20 Acidosis, unspecified; R65.20 Severe sepsis without septic shock; E66.9 Obesity, unspecified; E11.65 Type 2 diabetes mellitus with hyperglycemia; I10 Essential (primary) hypertension; E78.5 Hyperlipidemia, unspecified; K21.9 Gastro-esophageal reflux disease without esophagitis; M54.9 Dorsalgia, unspecified; G89.29 Other chronic pain; E83.42 Hypomagnesemia; E83.39 Other disorders of phosphorus metabolism; E87.6 Hypokalemia; R79.89 Other specified abnormal findings of blood chemistry; Z68.38 Body mass index [BMI] 38.0-38.9, adult; M81.0 Age-related osteoporosis without current pathological fracture; M25.561 Pain in right knee; Z79.899 Other long term (current) drug therapy; W18.30XA Fall on same level, unspecified, initial encounter; Y93.89 Activity, other specified; Y92.002 Bathroom of unspecified non-institutional (private) residence as the place of occurrence of the external cause
CPT/HCPCS: 36415; 71045; 71260; 71275; 73562; 74177; 76705; 80053; 80061; 80202; 81001; 82803; 83036; 83605; 83615; 83690; 83735; 83880; 84100; 84145; 84443; 84484; 85025; 85610; 85730; 86635; 87040; 87077; 87081; 87086; 87186; 87205; 87305; 87400; 87811; 93005; 93225; 93306; 94762; 96365; 96366; 96367; 97162; 99291; A4649; J0131; J1643; J1815; J2405; J2543; J3370; J3371; J3475; J7030; J7040; J7050; Q9967; A9270; J1644

== ENCOUNTER 2024-07-16 14:27 | Emergency (ER) | payer OTHER, MEDICAID, SELFPAY ==
[2024-07-16 14:36] VITALS: BP 151/97; PULSE 110; RESP 18; TEMP 36.8; O2SAT 94
--- NOTE | 2024-07-16 14:45 | PD.EDRME ---
Rapid Medical Screening Exam [facility] Arrival date/time: 07/16/24 14:27 74-year-old female with a history of hyperlipidemia, hypertension presents to the emergency room with a chief complaint of bilateral DVT to her lower extremities. Patient had a Doppler ultrasound this morning and was told by her primary care provider to come to the emergency room after there was 2 nonocclusive blood clots bilaterally. I have greeted and performed a focused initial assessment of this patient. A comprehensive ED assessment and evaluation of the patient, analysis of all test results, and completion of the medical decision making process will be conducted by additional ED providers. Chief Complaint: General Adult/Misc Complain Time Seen by Provider: 07/16/24 14:32 Vital signs: Vital Signs Temperature 98.3 F 07/16/24 14:36 Pulse Rate 110 H 07/16/24 14:36 Respiratory Rate 18 07/16/24 14:36 Blood Pressure 151/97 H 07/16/24 14:36 Pulse Oximetry (%) 94 L 07/16/24 14:36 Oxygen Delivery Method Room Air 07/16/24 14:36 Vital signs reviewed by provider: Yes
[2024-07-16 15:43] LABS: Basophils # (Auto) 0.1 Thou/mm3 (0.0-0.2); Basophils % (Auto) 1 % (0-2.5); Eosinophils # (Auto) 0.1 Thou/mm3 (0.0-0.5); Eosinophils % (Auto) 1 % (0-10); Hematocrit 43.4 % (36.0-46.0); Hemoglobin 13.6 g/dL (12.0-16.0); Immature Granulocytes % (Auto) 0 % (0-0); Immature Granulocytes Auto 0.02 Thou/mm3 (0.00-0.00); Lymphocytes # (Auto) 1.9 Thou/mm3 (1.0-4.8); Lymphocytes % (Auto) 27 % (10-50); Mean Corpuscular HGB Conc 31.3 g/dl (31.0-37.0); Mean Corpuscular Hemoglobin 28.4 pg (25.0-35.0); Mean Corpuscular Volume 91 fL (80-100); Monocytes # (Auto) 0.4 Thou/mm3 (0.0-0.8); Monocytes % (Auto) 6 % (0-12); Neutrophils # (Auto) 4.5 Thou/mm3 (1.8-7.7); Neutrophils % (Auto) 65 % (37-80); Nucleated Red Blood Cell % 0 /100 WBC (0); Platelet Count 304 Thou/mm3 (140-440); RDW Standard Deviation 50.4 fL (36.4-46.3); Red Blood Count 4.79 Miln/mm3 (4.00-5.20)
[2024-07-16 15:59] LABS: INR 1.1 (0.9-1.3); Partial Thromboplastin Time 28.2 Seconds (22.0-36.0); Prothrombin Time 11.5 Seconds (9.0-12.2)
[2024-07-16 16:03] LABS: Alanine Aminotransferase 15 U/L (10-49); Albumin, Serum 4.1 gm/dL (3.4-4.8); Albumin/Globulin Ratio 1.2 (1.2-2.2); Alkaline Phosphatase 170 U/L (46-116); Anion Gap 9 (7-16); Aspartate Amino Transferase 22 U/L (0-34); BUN/Creatinine Ratio 16 Ratio (12-20); Bilirubin,Total 0.3 mg/dL (0.3-1.2); Blood Urea Nitrogen 16 mg/dL (9-23); Carbon Dioxide 28.1 mMol/L (20.0-31.0); Chloride 101 mMol/L (98-107); Globulin 3.4 gm/dL (2.3-3.5); Glucose 245 mg/dL (74-106); Osmolality,Calculated 284 (275-295); Potassium 4.4 mMol/L (3.4-5.1); Sodium 138 mMol/L (136-145); Total Protein 7.5 gm/dL (5.7-8.2); eGFR 59 See Note
--- NOTE | 2024-07-16 21:01 | PC.NURSE ---
[facility]
--- NOTE | 2024-07-16 21:20 | PC.NURSE ---
No answer when called from lobby. Provider notified.
--- NOTE | 2024-07-16 21:42 | PC.NURSE ---
NO ANSWER WHEN CALLED FROM [facility].
== END 2024-07-16 21:42 | disposition left against medical advice (07) ==
LOC: SERX 15:22
PROVIDERS: Nurse Practitioner Family; Emergency Provider Emergency Medicine; PCP Nurse Practitioner Family
DX: I82.403 Acute embolism and thrombosis of unspecified deep veins of lower extremity, bilateral (principal); Z53.29 Procedure and treatment not carried out because of patient's decision for other reasons
CPT/HCPCS: 36415; 80053; 85025; 85610; 85730; 99281

== ENCOUNTER → 2024-07-16 | Outpatient (CLI) | payer MEDICARE, MEDICAID, SELFPAY ==
--- NOTE | 2024-07-16 13:30 | XR_ITS ---
Examination: Venous duplex lower extremity sonogram, bilateral. Date and time of exam: July 16, 2024 1630 hours INDICATIONS: Lower leg pain beginning one month ago Technique: Multiple sonographic images of the deep venous system have been obtained. B-mode/2-D grayscale imaging of vascular structures and Doppler spectral analysis (waveforms) and color performed Both legs are examined. Findings: Positive for nonocclusive acute DVT in the proximal right superficial femoral vein Positive for nonocclusive acute DVT in the left popliteal vein IMPRESSION: Positive for nonocclusive acute DVT in both right and left lower extremities
== END | disposition home or self-care (01) ==
PROVIDERS: PCP Nurse Practitioner Family; Referring Provider Nurse Practitioner Family; Visit Provider Nurse Practitioner Family
DX: I82.403 Acute embolism and thrombosis of unspecified deep veins of lower extremity, bilateral (principal); R05.3 Chronic cough
CPT/HCPCS: 93970

== ENCOUNTER 2024-07-17 08:55 | Emergency (ER) | payer MEDICARE, MEDICAID, SELFPAY ==
[2024-07-17 09:10] VITALS: BP 160/98; PULSE 94; RESP 17; TEMP 36.7; O2SAT 96; BMI 47.4
--- NOTE | 2024-07-17 09:18 | PD.EDADULT ---
ED General RME/HPI General Chief complaint: General Adult/Misc Complain Stated complaint: SENT BY PCP FOR BLOOD CLOTS IN BLE Time Seen by Provider: 07/17/24 09:05 Arrival date/time: 07/17/24 08:55 74-year-old female presents to the emergency department today stating that she was found to have bilateral lower extremity DVTs. Patient ports no chest pain or shortness of breath no headache dizziness or weakness patient reports he recently had lab work and imaging done because she had swelling to her legs Limitations: no limitations Related Data Home Medications ?Medication ?Instructions ?Recorded ?Confirmed atorvastatin 10 mg tablet 10 mg PO QDAY 05/14/18 04/28/24 omeprazole 40 mg capsule,delayed 40 mg PO QDAY 05/14/18 04/28/24 release sertraline 100 mg tablet 100 mg PO QDAY 06/30/18 04/28/24 gabapentin 100 mg capsule 100 mg PO 3XD 04/28/24 04/28/24 Previous Rx's ?Medication ?Instructions ?Recorded ondansetron 4 mg disintegrating 4 mg PO Q8H PRN nausea and 10/25/22 tablet vomiting #15 tabs amlodipine 10 mg tablet 10 mg PO QDAY #30 tabs 05/01/24 amoxicillin 500 mg-potassium 1 tab PO BID #14 tabs 05/01/24 clavulanate 125 mg tablet losartan 100 mg tablet 100 mg PO QDAY #30 tabs 05/01/24 apixaban 5 mg tablet (Eliquis) 10 mg (2 x 5 mg) PO BID 7 days #28 07/17/24 tabs Allergies Allergy/AdvReac Type Severity Reaction Status Date / Time No Known Allergies Allergy Verified 07/17/24 09:01 Review of Systems Review of Systems Systems Reviewed: All systems reviewed, normal except as documented Constitutional Constitutional: Reports system reviewed and no additional complaints, except as documented, Denies fever(s) and Denies headache(s) Eyes Eyes: Reports system reviewed and no additional complaints, except as documented and Denies blurry vision ENT Ears, Nose, Mouth, and Throat: Reports system reviewed and no additional complaints, except as documented, Denies headache(s), Denies nasal congestion and Denies nasal discharge Cardiovascular Cardiovascular: Reports system reviewed and no additional complaints, except as documented, Denies chest pain and Denies dyspnea Respiratory Respiratory: Reports system reviewed and no additional complaints, except as documented, Denies chest congestion, Denies cough and Denies dyspnea Gastrointestinal Gastrointestinal: Reports system reviewed and no additional complaints, except as documented and Denies abdominal pain Musculoskeletal Musculoskeletal: Reports system reviewed and no additional complaints, except as documented and Reports other (Bilateral lower extremity pain, swelling) Integumentary/Breasts Skin/Breast: Reports system reviewed and no additional complaints, except as documented and Denies rash Neurologic Neurologic: Reports system reviewed and no additional complaints, except as documented, Reports as per HPI and Denies headache(s) Past Medical History Past Medical History NEUROLOGIC: Negative Neurological Disorders or Seizures CARDIAC: Positive Hypercholesterolemia and Hypertension; Negative Cardiac Disorders or Congestive Heart Failure RESPIRATORY: Positive Asthma; Negative Chronic Obstructive Pulmonary Disease (COPD) GASTROINTESTINAL: Positive Gastrointestinal Disorders, Hiatal Hernia, Gastroesophageal Reflux Disease and Obesity GENITOURINARY: Negative Genitourinary Disorders or Renal Disease REPRODUCTIVE: Positive Previous Pregnancies; Negative Breast Cancer or Pelvic Inflammatory Disease MUSCULOSKELETAL: Negative Musculoskeletal Disorders or Arthritis ENDOCRINE: Positive Diabetes Mellitus Type 2; Negative Endocrine Disorders or Diabetes Mellitus Type 1 HEMATOLOGIC: Negative Blood Disorders, Anemia or Sickle Cell Disease PSYCHO/SOCIAL: Positive Depression OTHER HISTORY: Negative Hospitalization, Autoimmune Disease, Falls, Blood Transfusions, Blood Transfusion Reaction, Anesthesia Reactions, MRSA, Clostridium Difficile, Cancer or Breast Cancer Family History FAMILY HISTORY: Negative Family Cardiac Disorders Surgical History SURGICAL: Positive Cardiac Surgery, Vascular Surgery and Section Social History SMOKING STATUS: Never smoker SECOND HAND EXPOSURE: No ED Exam General Limitations: Present no limitations General appearance: Present alert and in no apparent distress Head Head exam: Present atraumatic, normocephalic and normal inspection Eye Eye exam: Present normal appearance, PERRL and EOMI; Absent conjunctival injection ENT ENT exam: Present normal exam, normal oropharynx and mucous membranes moist Neck Neck exam: Present normal inspection, full ROM and trachea midline Chest Chest inspection: Present normal inspection and symmetric chest wall rise Respiratory Respiratory exam: Present normal lung sounds bilaterally; Absent respiratory distress Cardiovascular Cardiovascular exam: Present regular rate, normal rhythm and normal heart sounds Abdominal Exam Abdominal exam: Present soft and normal bowel sounds; Absent distention, tenderness, guarding, rebound, rigidity, Lomax's sign, Rovsing's sign or tenderness at McBurney's Point Abdominal tenderness: Absent RUQ or RLQ Extremities Exam Extremities exam: Present normal inspection and full ROM Back Exam Back exam: Present normal inspection and full ROM Neurological Exam Neurological exam: Present alert, oriented X3 and CN II-XII intact Psychiatric Psychiatric exam: Present normal affect and normal mood Skin Skin exam: Present warm, dry, intact and normal color Course Quality Measures none Vital Signs Vital signs: Vital Signs Temperature 98.1 F 07/17/24 09:10 Pulse Rate 94 07/17/24 09:10 Respiratory Rate 17 07/17/24 09:10 Blood Pressure 160/98 H 07/17/24 09:10 Pulse Oximetry (%) 96 07/17/24 09:10 Oxygen Delivery Method Room Air 07/17/24 09:10 O2 saturation 96% on room air within normal limits MDM Patient data External records reviewed:: [facility] previous records Clinical information provided by:: patient Social determinants that could affect healthcare access:: none Patient has the following chronic illnesses:: None How is presenting disease/condition affected by chronic disease/condition?: no chronic disease Evaluation data The following diagnostics were reviewed and interpreted by me:: lab results and radiology exam(s) Lab and/or radiology exams considered but not ordered:: Lab radiology obtain yesterday Interpretation Summary: Reviewed by me Medications Medications considered but not ordered:: Given Medication administrations:: Given Consultations Consultation(s) initiated? (list below): No Diagnosis Differential Diagnosis ED Complaint MDM: DVT, PE, pitting edema Most likely diagnosis given after review of the tests above:: DVT Admission Indicated Admission indicated?: not indicated Explain why admission is indicated or not indicated:: No criteria Admission Request Was there a request for admission?: No Disposition Plan Disposition Plan: Discharge Discharge Attestation Discharge Attestation: The patient and all family members were given an opportunity to ask questions and understood the discharge instructions. Discharge instructions specifically effects, indications for sooner follow up or return to the emergency department, and the expected course of current diagnosis. Patient condition: Stable Medical Decision Making MDM Narrative MDM Narrative: 74-year-old female presents to the emergency department today stating that she was found to have bilateral lower extremity DVTs. Patient ports no chest pain or shortness of breath no headache dizziness or weakness patient reports he recently had lab work and imaging done because she had swelling to her legs On exam patient well-appearing patient does not appear ill or toxic patient does not appear in acute distress I reviewed the patient's lab work as well as imaging from yesterday patient has bilateral lower extremity DVT lab work is unremarkable Patient ports no history of stroke or GI bleed On exam patient has very mild swelling to bilateral lower extremities no pitting edema good capillary refill no coolness or pallor extremities I believe patient is a candidate to be treated on an outpatient basis patient given Ameliequis Explained to the patient that she must follow-up with her PCP in the next day or 2 in order to have a discussion as to management of her DVT I gave her 1 week supply and she will need to be continued on this medication for a longer period of time. At time of discharge patient reports no chest pain no shortness of breath no headache dizziness or weakness Patient discharged home in no distress to follow-up with primary care doctor in the next 24 to 48 hours and for any worsening symptoms to return to the ER immediately Differential Diagnosis Differential Diagnosis: DVT, PE, pitting edema Medical Records Medical records reviewed: Yes I reviewed the patient's medical records. Lab Data Lab results reviewed: Yes I reviewed the patient's lab results. Radiology Data Radiology results reviewed: Yes I reviewed the patient's radiology results. Discharge Plan Plan Patient Disposition: HOME (Self Care) Disposition Comment: Stable Prescriptions/Referrals Prescriptions/Med Rec: New Eliquis 5 mg tablet 10 mg PO BID 7 Days Qty: 28 0RF No Action atorvastatin 10 mg Tablet 10 mg PO QDAY omeprazole 40 mg Capsule,Delayed Release(Dr/Ec) 40 mg PO QDAY sertraline 100 mg Tablet 100 mg PO QDAY ondansetron 4 mg tablet,disintegrating 4 mg PO Q8H PRN (Reason: nausea and vomiting) Qty: 15 0RF gabapentin 100 mg capsule 100 mg PO 3XD amlodipine 10 mg tablet 10 mg PO QDAY Qty: 30 0RF losartan 100 mg tablet 100 mg PO QDAY Qty: 30 0RF Rx Instructions: Hold if SBP < 120 amoxicillin-pot clavulanate 500-125 mg tablet 1 tab PO BID Qty: 14 0RF Problem List Clinical Impression: Acute deep vein thrombosis (DVT) of both lower extremities Patient/Caregiver Discharge Instructions Education Materials: DVT Dc Additional Instructions: Please bring a copy of your ultrasound report to your primary care doctor today discuss further management I will give you a 1 week supply of medication for the blood clots you must follow-up with PCP in order to discuss further management should symptoms worsen if he develop any bleeding shortness of breath or any other concerns return immediately Print Language: Beninese Stand Alone Forms: [employer]ani Award Info., Patient Portal Info Letter PA/TOOLING MECHANIC Supervising Physician PA/TOOLING MECHANIC Supervising Physician: Dr plasencia
== END 2024-07-17 12:54 | disposition home or self-care (01) ==
PROVIDERS: Emergency Provider Emergency Medicine
DX: I82.403 Acute embolism and thrombosis of unspecified deep veins of lower extremity, bilateral (principal)
CPT/HCPCS: 99281

== ENCOUNTER → 2024-07-18 | Outpatient (CLI) | payer OTHER, MEDICARE, SELFPAY ==
--- NOTE | 2024-07-18 13:30 | XR_ITS ---
Examination: PA lateral chest 2 views TECHNIQUE: Upright PA lateral chest 2 views Exam date and time: July 18, 2024 1339 hours Comparison April 27, 2024, CT chest April 28, 2024 INDICATIONS: Coughing 3 months, large cavitary lesion posterior segment right upper lobe with consolidation adjacent to this cavitary lesion on CT chest April 28, 2024 FINDINGS: Again noted large cavitary lesion right upper lobe, at least 7.5 cm Mild opacity adjacent to the cavitary lesion in the right upper lobe Normal heart size Ectatic thoracic aorta IMPRESSION: Consider repeat CT chest follow-up to assess stability of the cavitary lesion and infiltrate in the right upper lobe described on CT chest April 28, 2024
== END | disposition home or self-care (01) ==
PROVIDERS: PCP Nurse Practitioner Family; Referring Provider Nurse Practitioner Family; Visit Provider Nurse Practitioner Family
DX: R91.1 Solitary pulmonary nodule (principal); R05.3 Chronic cough
CPT/HCPCS: 71046

== ENCOUNTER → 2024-08-07 | Outpatient (CLI) | payer OTHER, MEDICAID, SELFPAY ==
--- NOTE | 2024-08-07 08:45 | XR_ITS ---
Examination: Venous Doppler sonography Venous reflux study Exam date and time: August 07, 2024 0843 hrs. Indications: Bilateral leg pain 4 days history varicose veins, history deep vein thrombus, positive for nonocclusive acute DVT in the right and left lower extremities on venous Doppler July 16, 2024 Technique And Findings: Sonographic images dated venous system bilaterally. Positive for partial thrombus in the right common femoral vein and left popliteal vein Normal augmentation reflux assessment performed to acute DVT Impression: Positive for acute nonocclusive thrombus involving right common femoral vein and left popliteal vein
== END | disposition home or self-care (01) ==
PROVIDERS: PCP Nurse Practitioner Family; Referring Provider Nurse Practitioner Family; Visit Provider Nurse Practitioner Family
DX: I82.411 Acute embolism and thrombosis of right femoral vein (principal); I82.432 Acute embolism and thrombosis of left popliteal vein
CPT/HCPCS: 93970

== ENCOUNTER → 2024-09-11 | Outpatient (CLI) | payer OTHER, MEDICAID, SELFPAY ==
--- NOTE | 2024-09-11 17:00 | XR_ITS ---
Examination: CT chest, without intravenous contrast. Sagittal and coronal 2-D reconstructions. Exam date and time: September 11, 2024 1702 hours INDICATIONS: Coughing for 3 months, 5 x 4 x 7.5 cm cavitary lesion posterior segment right upper lobe with pneumonic consolidation on CT chest April 28, 2024 CTDI:vol (mGy) 16.7 DLP: (mGycm) 607 Technique: Multiple 3.0 mm axial sections of the chest to been obtained. Bone and lung density settings are obtained. Sagittal and coronal 2-D reconstructions have been obtained. Low dose protocols were performed. One or more of the following dose reduction techniques were used; automated exposure control, adjustment of the mA and/or KV according to patient size, use of iterative reconstruction technique. Findings: No thoracic aortic aneurysmal dilatation Pulmonary artery segments are not enlarged Thick-walled cavitary lesion posterior right upper lobe noted, 5 x 5 7 cm No new cavitary lesions No visualized liver or splenic lesion Contracted gallbladder No pancreatic mass Moderate osteopenia IMPRESSION: Stable thick-walled cavitary lesion right upper lobe, differential would include infectious processes as well as pulmonary neoplasm
== END | disposition home or self-care (01) ==
LOC: CCTX 16:22
PROVIDERS: Referring Provider Nurse Practitioner Family; Visit Provider Nurse Practitioner Family
DX: R91.1 Solitary pulmonary nodule (principal); R05.3 Chronic cough
CPT/HCPCS: 71250

== ENCOUNTER 2024-09-18 15:46 | Inpatient (IN) | payer OTHER, MEDICAID, MEDICARE, SELFPAY ==
[2024-09-18 15:47] VITALS: BMI 40.7
[2024-09-18 15:56] VITALS: BP 163/96; PULSE 87; RESP 18; TEMP 37.1; O2SAT 93
--- NOTE | 2024-09-18 16:30 | XR_ITS ---
Examination: CT chest, without intravenous contrast. Sagittal and coronal 2-D reconstructions. Exam date and time: September 18, 2024 1638 hours INDICATIONS: Hemoptysis, history thick-walled cavitary lesion right upper lobe, 5 x 5 x [address] chest September 11, 2024 CTDI:vol (mGy) 20.1 DLP: (mGycm) 629 Technique: Multiple 3.0 mm axial sections of the chest to been obtained. Bone and lung density settings are obtained. Sagittal and coronal 2-D reconstructions have been obtained. Low dose protocols were performed. One or more of the following dose reduction techniques were used; automated exposure control, adjustment of the mA and/or KV according to patient size, use of iterative reconstruction technique. Findings: AP dimension ascending thoracic aorta 3.9 cm Mild enlargement main pulmonary artery segments Moderate calcification left anterior descending and circumflex coronary arteries No paratracheal tracheobronchial or bronchopulmonary adenopathy Thick-walled cavitary lesion posterior segment left upper lobe again depicted, on this study measuring at least 6 x 5 x 5 cm with surrounding pneumonic consolidation New 4 mm pulmonary nodule anterior segment right upper lobe New 2 mm pulmonary nodule right lower lobe No visualized liver splenic lesion No gallstones No pancreatic mass IMPRESSION: Thick-walled cavitary mass posterior segment right upper lobe again noted, 6 x 5 x 5 cm with surrounding pneumonic consolidation Additional small pulmonary nodules in the right upper lobe and right lower lobe Differential would include infectious processes including active tuberculosis, underlying pulmonary neoplasm not excluded
--- NOTE | 2024-09-18 16:30 | XR_ITS ---
Examination: PA lateral chest 2 views TECHNIQUE: Upright PA lateral chest 2 views Date and time: September 18, 2024 1749 hours Comparison July 18, 2024 INDICATIONS: Hemoptysis today., Large cavitary mass posterior segment right upper lobe on CT chest September 11, 2024 FINDINGS: Right upper lobe and right middle lobe opacity consistent with pneumonia Normal heart size Ectatic thoracic aorta IMPRESSION: Pulmonary mass right upper lobe with pneumonia right upper lobe, please see the CT chest report today
--- NOTE | 2024-09-18 16:31 | EDRME_ITS ---
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
[2024-09-18 16:51] LABS: Basophils # (Auto) 0.1 Thou/mm3 (0.0-0.2); Basophils % (Auto) 1 % (0-2.5); Eosinophils # (Auto) 0.1 Thou/mm3 (0.0-0.5); Eosinophils % (Auto) 2 % (0-10); Hematocrit 43.2 % (36.0-46.0); Hemoglobin 13.4 g/dL (12.0-16.0); Immature Granulocytes % (Auto) 0 % (0-0); Immature Granulocytes Auto 0.02 Thou/mm3 (0.00-0.00); Lymphocytes # (Auto) 1.7 Thou/mm3 (1.0-4.8); Lymphocytes % (Auto) 28 % (10-50); Mean Corpuscular Hemoglobin 28.8 pg (25.0-35.0); Mean Corpuscular Volume 93 fL (80-100); Monocytes # (Auto) 0.4 Thou/mm3 (0.0-0.8); Monocytes % (Auto) 7 % (0-12); Neutrophils # (Auto) 3.8 Thou/mm3 (1.8-7.7); Neutrophils % (Auto) 62 % (37-80); Nucleated Red Blood Cell % 0 /100 WBC (0); Platelet Count 223 Thou/mm3 (140-440); RDW Standard Deviation 50.9 fL (36.4-46.3); Red Blood Count 4.65 Miln/mm3 (4.00-5.20); White Blood Count 6.1 Thou/mm3 (3.6-11.0)
[2024-09-18 17:12] LABS: Alanine Aminotransferase 10 U/L (10-49); Albumin, Serum 4.3 gm/dL (3.4-4.8); Albumin/Globulin Ratio 1.3 (1.2-2.2); Alkaline Phosphatase 181 U/L (46-116); Anion Gap 7 (7-16); Aspartate Amino Transferase 17 U/L (0-34); BUN/Creatinine Ratio 18 Ratio (12-20); Bilirubin,Total 0.4 mg/dL (0.3-1.2); Blood Urea Nitrogen 16 mg/dL (9-23); Calcium 9.5 mg/dL (8.3-10.6); Calcium (Corrected) 9.5 mg/dL (8.5-10.1); Carbon Dioxide 30.2 mMol/L (20.0-31.0); Chloride 106 mMol/L (98-107); Creatinine (Component) 0.9 mg/dL (0.6-1.3); Estimated Creatinine Clearance 63.3 mL/min (>60); Globulin 3.2 gm/dL (2.3-3.5); Glucose 124 mg/dL (74-106); Osmolality,Calculated 287 (275-295); Potassium 4.1 mMol/L (3.4-5.1); Sodium 143 mMol/L (136-145); Total Protein 7.5 gm/dL (5.7-8.2); eGFR > 60 See Note
[2024-09-18 17:26] LABS: INR 1.1 (0.9-1.3); Partial Thromboplastin Time 29.9 Seconds (22.0-36.0); Prothrombin Time 11.5 Seconds (9.0-12.2)
--- NOTE | 2024-09-18 18:02 | PD.EDRME ---
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
[2024-09-18 18:33] VITALS: BP 196/94; PULSE 77; RESP 18; TEMP 36.6; O2SAT 93
[2024-09-18 19:07] VITALS: BP 172/96; PULSE 63; RESP 16; TEMP 37; O2SAT 98
--- NOTE | 2024-09-18 19:14 | PD.EDURI ---
Upper Respiratory Inf. RME/HPI General Chief Complaint: Flu Like Symptoms Stated Complaint: COUGHING BLOOD Time Seen by Provider: 09/18/24 16:22 Arrival date/time: 09/18/24 15:46 RME / HPI RME / HPI Narrative: 09/18/24 15:46 74-year-old female history of valley fever presents to the Emergency Department today with concerns for cough patient reports blood-tinged sputum DR. WESLEY?Josie MAIN ED EVALUATION: 74 y/o female with Hx of Valley Fever, Hypertension, High Chlesterol, and DVT presents to ED c/o cough with blood-tinged sputum (x2) x today and intermittent chest pain x 3 days. 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 Patient was also diagnosed with DVT of BLL extremities and given a blood thinner and advised to F/U with her PCP. PCP never refilled blood thinner medication after visit. Patient also reports weight loss of 40 pounds over 3 months. Denies any other associated signs or symptoms. No other complaints expressed at this time. - PMH: HTN, high cholesterol, Valley fever, mass in lung (2020), DVT - PSH: Denies - Social history: Denies - Current medications: Reviewed PCP: Patient does not recall name. MD Complaint: cough Description of mucous: bloody Associated symptoms: chest pain Related Data Home Medications ?Medication ?Instructions ?Recorded ?Confirmed atorvastatin 10 mg tablet 10 mg PO QDAY 05/14/18 04/28/24 omeprazole 40 mg capsule,delayed 40 mg PO QDAY 05/14/18 04/28/24 release sertraline 100 mg tablet 100 mg PO QDAY 06/30/18 04/28/24 gabapentin 100 mg capsule 100 mg PO 3XD 04/28/24 04/28/24 Previous Rx's ?Medication ?Instructions ?Recorded ondansetron 4 mg disintegrating 4 mg PO Q8H PRN nausea and 10/25/22 tablet vomiting #15 tabs amlodipine 10 mg tablet 10 mg PO QDAY #30 tabs 05/01/24 amoxicillin 500 mg-potassium 1 tab PO BID #14 tabs 05/01/24 clavulanate 125 mg tablet losartan 100 mg tablet 100 mg PO QDAY #30 tabs 05/01/24 Allergies Allergy/AdvReac Type Severity Reaction Status Date / Time No Known Allergies Allergy Verified 09/18/24 15:47 Review of Systems Review of Systems Systems Reviewed: All systems reviewed, normal except as documented Narrative Review of Systems: Gen: No fever, no chills, Positive weight loss (40 lb over 3 months) PULM: Positive blood-tinged cough CV: Positive intermittent chest pain Constitutional Constitutional: Denies fever(s) and Reports weight loss Cardiovascular Cardiovascular: Reports chest pain Respiratory Respiratory: Reports cough and Reports hemoptysis Past Medical History Past Medical History CARDIAC: Positive Hypercholesterolemia and Hypertension RESPIRATORY: Positive Asthma GASTROINTESTINAL: Positive Gastrointestinal Disorders, Hiatal Hernia, Gastroesophageal Reflux Disease and Obesity REPRODUCTIVE: Positive Previous Pregnancies ENDOCRINE: Positive Diabetes Mellitus Type 2 PSYCHO/SOCIAL: Positive Depression Surgical History SURGICAL: Positive Cardiac Surgery, Vascular Surgery and Section ED Exam General General appearance: Present alert and in no apparent distress Head Head exam: Present atraumatic Eye Eye exam: Present normal appearance and PERRL; Absent scleral icterus ENT ENT exam: Present normal exam, normal oropharynx and mucous membranes dry; Absent mucous membranes moist Neck Neck exam: Present normal inspection, full ROM and trachea midline Chest Chest inspection: Present normal inspection and symmetric chest wall rise Respiratory Respiratory exam: Present normal lung sounds bilaterally Cardiovascular Cardiovascular exam: Present regular rate, normal rhythm and normal heart sounds Abdominal Exam Abdominal exam: Present soft and normal bowel sounds Extremities Exam Extremities exam: Present normal inspection and full ROM Back Exam Back exam: Present normal inspection and full ROM Neurological Exam Neurological exam: Present alert, oriented X3 and CN II-XII intact Psychiatric Psychiatric exam: Present normal affect and normal mood Skin Skin exam: Present warm, dry, intact and normal color; Absent rash, erythema, pallor or mottled Course Quality Measures none Orders Category Date Time Status Bedside COVID-19 Antigen Test NOW Care 09/18/24 19:42 Active COVID-19 Screening Questionnaire NOW Care 09/18/24 19:[address] Screening NOW Care 09/18/24 20:39 Active Decision to Admit X1 Care 09/18/24 19:[address] angio chest Stat Exams 09/18/24 20:[address] chest wo con Stat Exams 09/18/24 16:30 Completed US venous doppler LE BI Stat Exams 09/18/24 20:39 Completed XR chest 2V Stat Exams 09/18/24 16:30 Completed CBC Stat Lab 09/18/24 16:35 Completed Comprehensive Metabolic Panel Stat Lab 09/18/24 16:35 Completed Partial Thromboplastin Time Stat Lab 09/18/24 16:35 Completed Prothrombin Time with INR Stat Lab 09/18/24 16:35 Completed Vital Signs Vital signs: Vital Signs Temperature 98.8 F 09/18/24 15:56 Pulse Rate 87 09/18/24 15:56 Respiratory Rate 18 09/18/24 15:56 Blood Pressure 163/96 H 09/18/24 15:56 Pulse Oximetry (%) 93 L 09/18/24 15:56 Oxygen Delivery Method Room Air 09/18/24 15:56 Upper Respiratory Infection MDM Narrative MDM Narrative:: 74-year-old female with history of valley fever, high cholesterol, hypertension, valley fever, mass in the lung since 2020 on x-ray that was just being watched. The patient has seen a specialist for hemoptysis and/or mass in the past she does not know the name of it. Chief complaint is hemoptysis x 2 today when she was in the shower. Review of systems 2 days of chest pain that is constant. No radiation. 40 pound weight loss in the last Differential diagnosis includes mass, PE, recurrence of her valley fever, Patient data External records reviewed:: [facility] previous records (Reviewed prior ED records from 07/17/24. 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.) Social determinants that could affect healthcare access:: none Patient has the following chronic illnesses:: Hypercholesterolemia, Hypertension, Asthma, Gastrointestinal Disorders, Hiatal Hernia, Gastroesophageal Reflux Disease, Obesity, Diabetes Mellitus Type 2, Depression How is presenting disease/condition affected by chronic disease/condition?: exacerbated by Evaluation data The following diagnostics were reviewed and interpreted by me:: lab results and radiology exam(s) Lab and/or radiology exams considered but not ordered:: None Interpretation Summary: LABS RDW Std Deviation elevated at 50.9, Immature granulocyte elevated at 0.02. Glucose elevated at 124, Alkaline phosphates elevated at 181. RADIOLOGY Chest X-Ray: CXR, my interpretation: reviewed, interpreted, and agreed with radiologist report; see below. FINDINGS: Right upper lobe and right middle lobe opacity consistent with pneumonia Normal heart size Ectatic thoracic aorta IMPRESSION: Pulmonary mass right upper lobe with pneumonia right upper lobe, please see the CT chest report today Chest CT: CT, my interpretation: reviewed, interpreted, and agreed with radiologist report; see below. Findings: AP dimension ascending thoracic aorta 3.9 cm Mild enlargement main pulmonary artery segments Moderate calcification left anterior descending and circumflex coronary arteries No paratracheal tracheobronchial or bronchopulmonary adenopathy Thick-walled cavitary lesion posterior segment left upper lobe again depicted, on this study measuring at least 6 x 5 x 5 cm with surrounding pneumonic consolidation New 4 mm pulmonary nodule anterior segment right upper lobe New 2 mm pulmonary nodule right lower lobe No visualized liver splenic lesion No gallstones No pancreatic mass IMPRESSION: Thick-walled cavitary mass posterior segment right upper lobe again noted, 6 x 5 x 5 cm with surrounding pneumonic consolidation. Additional small pulmonary nodules in the right upper lobe and right lower lobe. Differential would include infectious processes including active tuberculosis, underlying pulmonary neoplasm not excluded. Medications / Prescriptions Medications or Prescriptions considered but not ordered:: None Medication administrations:: Medication Administration History Acetaminophen (Acetaminophen 325 Mg Tablet) 650 mg PO Q6H PRN PRN Reason: Fever >100.3 or pain 1-3 Stop: 10/18/24 20:39 Amlodipine Besylate (Amlodipine Besylate 5 Mg Tablet) 10 mg PO QDAY [facility] Stop: 10/19/24 08:59 Atorvastatin Calcium (Atorvastatin Calcium 10 Mg Tablet) 10 mg PO QDAY [facility] Stop: 10/19/24 08:59 Dextrose (Dextrose 50%-Water Inj 50 Ml Syringe) 25 ml IV Q15MIN PRN PRN Reason: BG 50-70 responsive npo pt Stop: 10/18/24 21:38 Dextrose (Dextrose 50%-Water Inj 50 Ml Syringe) 50 ml IV Q15MIN PRN PRN Reason: BG <50 OR BG <70 & pt unresponsive Stop: 10/18/24 21:38 Fluconazole (Fluconazole 100 Mg Tablet) 200 mg PO DAILY [facility] Stop: 09/26/24 08:59 Gabapentin (Gabapentin 100 Mg Capsule) 100 mg PO TID [facility] Stop: 10/18/24 22:59 Last Admin: 09/18/24 23:50 Dose: 100 mg Documented By: BRADY Glucagon (Glucagon Inj 1 Mg Vial) 1 mg IM Q15MIN PRN PRN Reason: BG <70, and no IV access Insulin Human Lispro (Insulin Lispro (Admelog) 1 Unit/0.01 Ml Unit) 0 unit SC [facility]; Protocol Stop: 10/19/24 07:29 Losartan Potassium (Losartan Potassium 25 Mg Tablet) 100 mg PO QDAY [facility] Stop: 10/19/24 08:59 Non-Formulary Medication (Omeprazole) 40 mg PO QDAY [facility] Stop: 10/19/24 08:59 Ondansetron HCl (Ondansetron Inj 2 Mg/Ml Inj 2 Ml) 4 mg IV Q6H PRN; Protocol PRN Reason: NAUSEA OR VOMITING Stop: 10/18/24 20:39 Sennosides (Senna Tablet) 1 tab PO QDAY PRN; Protocol PRN Reason: constipation Stop: 10/18/24 20:39 Sertraline HCl (Sertraline Hcl 25 Mg Tablet) 100 mg PO QDAY [facility] Stop: 10/19/24 08:59 See above if any Consultations Consultation(s) initiated? (list below): Yes Consultation #1 (Physician, Specialty, Details): Dr. Crain made aware of the patient?s HPI, PMHx, lab and/or radiology results. Treatment plan was discussed. Will admit for further evaluation and management. Accepts patient for admission. Time: 19:23 Diagnosis Upper Respiratory Differential Diagnosis: upper respiratory infection and other (PE, Hemoptysis, Pneumonia, Tuberculosis, Pulmonary mass, Valley fever reoccurrence ) Most likely diagnosis given after review of the tests above:: Hemoptysis, Lung mass Admission Indicated Admission indicated?: indicated Explain why admission is indicated or not indicated:: Pulmonary mass right upper lobe with pneumonia Admission Request Was there a request for admission?: Yes Admission Attestation Admission request attestation: Discussed case with [] from Hospitalist service regarding admission. Discussed patients ED course, exam findings, labs, and radiology results. The Hospitalist [agrees,declines] to accept the patient for admission. Disposition Plan Disposition Plan: Admit Discharge Plan Plan Patient Disposition: Admit Acute Care w/in Hospital Patient condition on transfer: Stable Problem List Clinical Impression: Hemoptysis, Lung mass
--- NOTE | 2024-09-18 20:39 | XR_ITS ---
Examination: Venous duplex lower extremity sonogram, bilateral. Date and time of exam: September 18, 2024 2124 hours INDICATIONS: History bilateral nonocclusive DVT right and left lower extremities on venous Doppler July 16, 2024 Technique: Multiple sonographic images of the deep venous system have been obtained. B-mode/2-D grayscale imaging of vascular structures and Doppler spectral analysis (waveforms) and color performed Both legs are examined. Findings: Normal right deep venous system Partial nonocclusive thrombus left popliteal vein IMPRESSION: Positive for partial nonocclusive thrombus left popliteal vein
--- NOTE | 2024-09-18 20:39 | XR_ITS ---
Examination: CTA chest with intravenous contrast 2-D reconstructions 3-D reconstructions, vascular Date and time of exam: September 18, 2024 10:37 PM INDICATIONS: Hemoptysis today CTDI: vol (mGy) 12.6 DLP: (mGycm) 8 Technique: Multiple axial sections of the thorax have been obtained. 3 mm slice thickness, from below the hemidiaphragms to above the apices of the lungs. Mediastinal and lung density settings have been obtained. 2-D sagittal and coronal reconstructions. 3-D angiographic renderings, 3-D volume renderings, 3D post processing, vascular maximum intensity projections obtained. Contrast administered is 100 cc Isovue-370 intravenous. Low dose protocols were performed. One or more of the following dose reduction techniques were used; automated exposure control, adjustment of the mA and/or KV according to patient size, use of iterative reconstruction technique. Findings: No thoracic aortic aneurysm dilatation or dissection No pulmonary artery filling defects Thick-walled cavitary mass in the posterior segment right upper lobe again noted with surrounding pneumonic consolidation Mild enlargement cardiac contour 4 mm pulmonary nodule right upper lobe image 116 2 mm pulmonary nodule left lower lobe image 183 No visualized liver or splenic lesion No gallstones No pancreatic mass IMPRESSION: Negative for pulmonary artery emboli No change in thick-walled cavitary mass in the posterior segment right upper lobe with surrounding pneumonic consolidation
--- NOTE | 2024-09-18 20:43 | EKG_ITS ---
[facility] Test Date: 2024-09-18 Pat Name: GOMEZ MARCELINO Department: Room: - Gender: Female Check Totaler: : 1950 Requested By: Madelyn Cordoba Order Number: [id number] Reading MD: Madelyn Cordoba Measurements Intervals [place] Rate: 56 P: 43 [place]: 171 QRS: -3 QRSD: 80 T: 32 QT: 432 QTc: 418 Interpretive Statements SINUS BRADYCARDIA LOW QRS VOLTAGE IN PRECORDIAL LEADS [QRS DEFLECTION < 1.0 mV IN CHEST LEADS] Compared to ECG 04/27/2024 21:39:59 Sinus tachycardia no longer present Indeterminate axis no longer present Myocardial infarct finding no longer present /store/S0/[id number]/ecg/[id number].pdf
--- NOTE | 2024-09-18 20:44 | ECHO_ITS ---
Transthoracic Echo Report Ht (in): 63 Wt (lb): 230 Exam Location: Echo Lab Status: Emergency Paper Wrapping Machine Operator: Laureen Elizabeth Indications: Procedure Performed: BP: 132 / 94 HR: 73 Technical Quality: Very technically difficult study MEASUREMENTS (Male / Female) Normal Values 2D ECHO LV Diastolic Diameter PLAX 5.2 cm 4.2 - 5.9 / 3.9 - 5.3 cm LV Systolic Diameter PLAX 3.4 cm IVS Diastolic Thickness 0.9 cm 0.6 - 1.0 / 0.6 - 0.9 cm LVPW Diastolic Thickness 1.0 cm 0.6 - 1.0 / 0.6 - 0.9 cm LV Relative Wall Thickness 0.4 LVOT Diameter 1.7 cm LA Volume Index 26.7 cm?/m? 16 - 28 cm?/m? M-MODE Aortic Root Diameter MM 2.5 cm LA Systolic Diameter MM 3.5 cm LA Ao Ratio MM 1.4 AV Cusp Separation MM 2.0 cm DOPPLER AV Peak Velocity 187.0 cm/s AV Peak Gradient 14.0 mmHg AV Mean Gradient 7.0 mmHg AV Velocity Time Integral 47.0 cm LVOT Peak Velocity 126.0 cm/s LVOT Peak Gradient 6.4 mmHg LVOT Velocity Time Integral 32.4 cm LVOT Cardiac Index 2430.3 cm?/min?m? AV Area Cont Eq vti 1.6 cm? AV Area Cont Eq pk 1.5 cm? MV Area PHT 2.3 cm? Mitral E Point Velocity 51.4 cm/s Mitral A Point Velocity 99.0 cm/s Mitral E to A Ratio 0.5 LV E' Lateral Velocity 5.7 cm/s Mitral E to LV E' Lateral Ratio 9.1 LV E' Septal Velocity 5.4 cm/s Mitral E to LV E' Septal Ratio 9.4 TR Peak Velocity 249.7 cm/s TR Peak Gradient 24.9 mmHg PV Peak Velocity 114.0 cm/s PV Peak Gradient 5.2 mmHg FINDINGS Left Ventricle Normal left ventricular size, wall thickness, systolic function with no obvious regional wall motion abnormalities. The ejection fraction is visually estimated at 55%. There is grade I diastolic dysfunction of the left ventricle (impaired relaxation pattern). Right Ventricle The right ventricle is normal in size and systolic function. Possible Campos sign. The estimated right ventricular systolic pressure, 36 mmHg. RAP 15. Left Atrium The left atrium is normal by two-dimensional, color flow and Doppler imaging with no structural abnormalities, no thrombus formation present. Right Atrium The right atrium is normal by two-dimensional imaging, color flow and Doppler imaging with no structural abnormalities, no thrombus formation present. Atrial Septum The interatrial septum appears normal with no evidence of a shunt. Aorta The aorta is normal by two-dimensional, color flow and Doppler interrogation. Mitral Valve The mitral valve is normal by two-dimensional, color flow and Doppler interrogation. There is no significant mitral valve regurgitation, stenosis or prolapse. Aortic Valve The aortic valve is trileaflet and normal by two-dimensional, color flow and Doppler interrogation. There is no significant aortic valve regurgitation. Tricuspid Valve The tricuspid valve is normal by two-dimensional, color flow and Doppler interrogation. There is mild tricuspid valve regurgitation. Pulmonic Valve The pulmonic valve is not well visualized. There is no significant pulmonic valve regurgitation. Vessels The pulmonary artery appears normal. The inferior vena cava pulmonary and hepatic veins appear normal. Pericardium The pericardium is normal by two-dimensional imaging. There is no significant pericardial effusion. CONCLUSIONS Indication: PE workup Normal LV size, wall thickness. Estimated EF 55-60%. Grade I diastolic dysfunction. Normal RV size and systolic function. Possible Campos sign. Estimated RVSP, 40 mmHg. Mild to moderately elevated. Mild TR. Mild MAC, trace TR. No pericardial effusion. Blane Mosquera (Electronically Signed) Final Date: 20 Sep 2024 00:30
--- NOTE | 2024-09-18 20:55 | ESHP_ITS ---
<Statement entered by Jonh Crain MD - 09/19/24 06:25> I have discussed and was present for the essential components of the history, physical examination, diagnosis, and treatment plan with the resident. I agree with the patient's care as documented by the resident and amended herein by me. Jonh Crain MD FACP. Documentation for date of: 09/18/24 HPI History of Present Illness Chief complaint: coughing blood History of present illness: Shaw Vo is 74 yr female with PMH of hypertension, diabetes, mild dementia, anxiety, valley fever, previous DVT presenting with chief complaint of coughing blood. Patient's hemoptysis episode started around lunchtime today. Patient went to the bathroom and started coughing up blood used about 5?6 tissues. About a month ago, patient had gone to see PCP due to lower extremity swelling. She was then sent to the ED for evaluation of a DVT. At that time, imaging showed nonocclusive DVT and she was discharged with 1 week supply of Eliquis. Patient stated that she finished 1 week supply and was given additional month supply after follow-up with PCP. However, has not been compliant with that course. She stopped taking the Eliquis after that refill. Daughter at bedside stated that patient is generally noncompliant with medications due to anxiety. Admission in April 2024, patient had workup done for TB which was negative. She denies any recent travel, no possible exposure to TB contact since then. Endorses sedentary lifestyle with activity just within the house. Endorses mild shortness of breath, chest pain tender to palpation, mild lower extremity swelling, uses 1 pillow to prop up during sleep. In ED, BP 163/96, HR 87, RR 18, afebrile, saturating 93% on room air. Hemoglobin stable 13, CMP unremarkable. Glucose [address] chest shows cavitary mass in right upper lobe 6 x 5 cm (appears consistent with previous imaging), various small nodules in right lung. CT angio and u/s LE pending. Patient to be admitted for workup of hemoptysis. PMH: as noted above PSH: varicose vein surgery ~many years ago, 2 abdominal hernia repairs, and C- sections FamHx: Patient's son currently has kidney failure, father passed from aspiration event from hemoptysis. Social: Lives i [place] with . Denies smoking history, denies drinking. Meds: med rec pending Allergies: NKDA Review of Systems Review of Systems Systems Reviewed: All systems reviewed, normal except as documented Exam Vital Signs Temp Pulse Resp BP Pulse Ox O2 Del Method 36.8 F L 63 16 172/96 H 98 Room Air 09/18/24 19:07 09/18/24 19:07 09/18/24 19:07 09/18/24 19:07 09/18/24 19:07 09/18/24 19:07 Narrative Exam General: Elderly female, peers anxious, tearful, no acute distress, cooperative HEENT: NCAT, No JVD noted. Mucosa dry. Pupils are equal and reactive to light bilaterally Cardiovascular: Normal S1 and S2. Regular rate and rhythm. Respiratory: Lungs are clear to auscultation bilaterally. No wheezing or crackles heard. Abdomen: Soft, nontender, not distended, normal bowel sounds. Skin: Warm to touch, dry, no rashes noted Musculoskeletal: No gross injuries. Able to move all 4 extremities. No pitting edema, no lower extremity tenderness, bilateral calves symmetrical Neuro: Alert and oriented x3. No focal neuro deficits. Psych: Normal affect and mood Results: Labs 09/18/24 16:35 09/18/24 16:35 Labs: Short CBC 09/18/24 Range/Units 16:35 WBC 6.1 (3.6-11.0) Thou/mm3 Hgb 13.4 (12.0-16.0) g/dL Hct 43.2 (36.0-46.0) % Plt Count 223 (140-440) Thou/mm3 BMP 09/18/24 16:35 Sodium 143 Potassium 4.1 Chloride 106 Carbon Dioxide 30.2 BUN 16 Creatinine 0.9 Glucose 124 H Calcium 9.5 Liver Function 09/18/24 Range/Units 16:35 Total Bilirubin 0.4 (0.3-1.2) mg/dL AST 17 (0-34) U/L ALT 10 (10-49) U/L Alkaline Phosphatase 181 H (46-116) U/L Albumin 4.3 (3.4-4.8) gm/dL Quality Measures Quality Measures none Advance care planning discussed with:: patient Medications Home Medications and Allergies Home Medications ?Medication ?Instructions ?Recorded ?Confirmed ?Type atorvastatin 10 mg tablet 10 mg PO QDAY 05/14/1804/28 History omeprazole 40 mg capsule,delayed 40 mg PO QDAY 9 04/28/24 History release sertraline 100 mg tablet 100 mg PO QDAY 06/30/1804/02 History gabapentin 100 mg capsule 100 mg PO 3XD 04/28/2404/28 History Allergies Allergy/AdvReac Type Severity Reaction Status Date / Time No Known Allergies Allergy Verified 09/18/24 15:47 Visit Medications Acetaminophen (Acetaminophen 325 Mg Tablet) 650 mg PO Q6H PRN PRN Reason: Fever >100.3 or pain 1-3 Stop: 10/18/24 20:39 Ondansetron HCl (Ondansetron Inj 2 Mg/Ml Inj 2 Ml) 4 mg IV Q6H PRN; Protocol PRN Reason: NAUSEA OR VOMITING Stop: 10/18/24 20:39 Sennosides (Senna Tablet) 1 tab PO QDAY PRN; Protocol PRN Reason: constipation Stop: 10/18/24 20:39 Assessment & Plan Plan Shaw Vo is 74 yr female with PMH of hypertension, diabetes, mild dementia, anxiety, valley fever, previous DVT presenting with chief complaint of coughing blood. Patient's hemoptysis episode started around lunchtime today. Patient to be admitted for workup of hemoptysis. #Hemoptysis #Hx DVT Ddx: PE, inflammatory process from valley fever, bronchitis, cancer. Started today, used 5-6 tissues. Has hx of DVT, noncompliant with Eliquis. Denies previous episodes of hemoptysis. Has mild SOB with chest discomfort. Hemodynamically stable. Saturating 93% on room air. CT chest shows cavitary mass in right upper lobe 6 x 5 cm (appears consistent with previous imaging), various small nodules in right lung. WELLS PE score: 5.5 points (moderate risk) Wells DVT score: 1 point (moderate risk) -CT angio chest pending -echo pending -u/s LE pending -EKG pending -consider starting patient on PO anticoagulant or IV heparin pending imaging results #Hx pulmonary cocci Last admission in 04/2025, cocci IgM serology positive. She was started on fluconazole 200mg daily but has not been taking as prescribed. -repeat cocci serology pending -resumed fluconazole 200mg daily # Vng-[id number]-votnxxsmb type 2 diabetes On admission initial glucose 124. Last A1c 8.3 on 04/2024. -Held home medications -Bedside blood glucose checks ACHS -Insulin lispro sliding scale -Carb consistent low diet -A1c pending #Hx HTN #Hx HLD #Hx anxiety Daughter at bedside stated that patient is noncompliant. -med rec pending #Medication noncompliance #Obese -industrial relations counselor patient -education -close f/u outpatient Health maintenance: Dispo: tele, work up PE FEN: low carb DVT prophylaxis: SCDs CODE STATUS: DNR The patient's management plan was discussed with my attending physician . Madelyn Cordoba, PGY-1
[2024-09-18 21:18] VITALS: BP 162/106; PULSE 69; RESP 20; TEMP 37; O2SAT 93
[2024-09-18 22:47] VITALS: RESP 93
[2024-09-18] MEDS: GABAPENTIN 100 MG CAPSULE PO (23:50)
[2024-09-19] VITALS (11 sets, daily range): BP systolic 123–161; BP diastolic 63–94; PULSE 46–77; RESP 16–94; TEMP 36.1–36.7; O2SAT 91–98; BMI 40.7
[2024-09-19 05:48] LABS: Coccid Serology, CF (UCD)* See Sep Rpt
[2024-09-19 05:57] LABS: Basophils % (Auto) 1 % (0-2.5); Eosinophils # (Auto) 0.1 Thou/mm3 (0.0-0.5); Eosinophils % (Auto) 3 % (0-10); Hematocrit 39.7 % (36.0-46.0); Hemoglobin 12.5 g/dL (12.0-16.0); Immature Granulocytes % (Auto) 0 % (0-0); Lymphocytes # (Auto) 1.5 Thou/mm3 (1.0-4.8); Lymphocytes % (Auto) 32 % (10-50); Mean Corpuscular HGB Conc 31.5 g/dl (31.0-37.0); Mean Corpuscular Hemoglobin 29.6 pg (25.0-35.0); Mean Corpuscular Volume 94 fL (80-100); Monocytes # (Auto) 0.4 Thou/mm3 (0.0-0.8); Monocytes % (Auto) 9 % (0-12); Neutrophils # (Auto) 2.7 Thou/mm3 (1.8-7.7); Neutrophils % (Auto) 56 % (37-80); Nucleated Red Blood Cell % 0 /100 WBC (0); Platelet Count 182 Thou/mm3 (140-440); RDW Standard Deviation 50.8 fL (36.4-46.3); Red Blood Count 4.22 Miln/mm3 (4.00-5.20); White Blood Count 4.8 Thou/mm3 (3.6-11.0)
[2024-09-19 06:23] LABS: Glucose Estimated Average 160 mg/dL (80-131); Hemoglobin A1C 7.2 % Hgb (4.8-6.0)
[2024-09-19 06:43] LABS: Alanine Aminotransferase 8 U/L (10-49); Albumin, Serum 3.5 gm/dL (3.4-4.8); Albumin/Globulin Ratio 1.3 (1.2-2.2); Alkaline Phosphatase 147 U/L (46-116); Anion Gap 7 (7-16); Aspartate Amino Transferase 14 U/L (0-34); BUN/Creatinine Ratio 15 Ratio (12-20); Bilirubin,Total 0.6 mg/dL (0.3-1.2); Blood Urea Nitrogen 12 mg/dL (9-23); Calcium 8.8 mg/dL (8.3-10.6); Calcium (Corrected) 9.2 mg/dL (8.5-10.1); Carbon Dioxide 30.9 mMol/L (20.0-31.0); Chloride 107 mMol/L (98-107); Creatinine (Component) 0.8 mg/dL (0.6-1.3); Estimated Creatinine Clearance 71.3 mL/min (>60); Globulin 2.7 gm/dL (2.3-3.5); Glucose 101 mg/dL (74-106); Osmolality,Calculated 288 (275-295); Phosphorous 3.1 mg/dL (2.4-5.1); Potassium 3.7 mMol/L (3.4-5.1); Sodium 145 mMol/L (136-145); Total Protein 6.2 gm/dL (5.7-8.2); eGFR > 60 See Note
--- NOTE | 2024-09-19 08:18 | EKG_ITS ---
[facility] Test Date: 2024-09-19 Pat Name: GOMEZ MARCELINO [facility] Gender: Female Display Artist: RODY : 1950 Requested By: Jon Solis Order Number: [id number] Reading MD: Jon Solis Measurements Intervals [place] Rate: 59 P: 14 GA: 164 QRS: -19 QRSD: 109 T: 21 QT: 466 QTc: 463 Interpretive Statements SINUS BRADYCARDIA Compared to ECG 09/18/2024 22:25:57 No significant changes /store/S0/[id number].pdf
[2024-09-19] MEDS: ATORVASTATIN CALCIUM 10 MG TABLET PO (09:11)
[2024-09-19] MEDS: amLODIPine BESYLATE 5 MG TABLET 10 MG PO (09:11)
[2024-09-19] MEDS: PANTOPRAZOLE 40 MG TABLET PO (09:11)
[2024-09-19] MEDS: SERTRALINE HCL 25 MG TABLET 100 MG PO (09:11)
[2024-09-19] MEDS: FLUCONAZOLE 100 MG TABLET 200 MG PO (09:11)
[2024-09-19] MEDS: LOSARTAN POTASSIUM 25 MG TABLET 100 MG PO (09:12)
--- NOTE | 2024-09-19 10:55 | PC.SS ---
Update: Plan is to discharge patient today.
--- NOTE | 2024-09-19 11:40 | ESPR_ITS ---
Documentation for date of: 09/19/24 Subjective Subjective Interval history: Patient examined bedside today. No acute overnight events. Patient reports that she has never had hemoptysis before. She reports she is unaware that she has had valley fever before. Her does say that she sees a software product specialist. She endorses some weight loss that was unintentional recently. No other complaints at this time Exam Vital Signs Temp Pulse Resp BP Pulse Ox O2 Del Method 96.9 F 62 17 155/81 H 97 Room Air 09/19/24 08:00 09/19/24 09:47 09/19/24 09:47 09/19/24 09:12 09/19/24 08:00 09/19/24 08:00 Narrative Exam General: Elderly female, peers anxious, tearful, no acute distress, cooperative HEENT: NCAT, No JVD noted. Mucosa dry. Pupils are equal and reactive to light bilaterally Cardiovascular: Normal S1 and S2. Regular rate and rhythm. Respiratory: Lungs are clear to auscultation bilaterally. No wheezing or crackles heard. Abdomen: Soft, nontender, not distended, normal bowel sounds. Skin: Warm to touch, dry, no rashes noted Musculoskeletal: No gross injuries. Able to move all 4 extremities. No pitting edema, no lower extremity tenderness, bilateral calves symmetrical Neuro: Alert and oriented x3. No focal neuro deficits. Psych: Normal affect and mood Objective Labs 09/19/24 04:30 09/19/24 04:30 Labs: Laboratory Results - last 24 hr 09/18/24 09/19/24 16:35 04:30 WBC 6.1 4.8 RBC 4.65 4.22 Hgb 13.4 12.5 Hct 43.2 39.7 MCV 93 94 MCH 28.8 29.6 MCHC 31.0 31.5 RDW Std Deviation 50.9 H 50.8 H Plt Count 223 182 D Neut % (Auto) 62 56 Lymph % (Auto) 28 32 [place] % (Auto) 7 9 Eos % (Auto) 2 3 Baso % (Auto) 1 1 Neut # (Auto) 3.8 2.7 Lymph # (Auto) 1.7 1.5 [place] # (Auto) 0.4 0.4 Eos # (Auto) 0.1 0.1 Baso # (Auto) 0.1 0.0 Immature Gran # (Auto) 0.02 H 0.00 Absolute Nucleated RBC 0.00 0.00 Immature Gran % 0 0 Nucleated RBC % 0 0 PT 11.5 INR 1.1 APTT 29.9 Sodium 143 145 Potassium 4.1 3.7 Chloride 106 107 Carbon Dioxide 30.2 30.9 Anion Gap 7 7 BUN 16 12 Creatinine 0.9 0.8 Estim Creat Clear Calc 63.3 71.3 eGFR > 60 > 60 BUN/Creatinine Ratio 18 15 Glucose [address] Glu mg/dL 160 H Hemoglobin A1c 7.2 H Calculated Osmolality 287 288 Calcium 9.5 8.8 Corrected Calcium 9.5 9.2 Phosphorus 3.1 Magnesium 2.0 Total Bilirubin 0.4 0.6 AST 17 14 ALT 10 8 L Alkaline Phosphatase 181 H 147 H D Total Protein 7.5 6.2 Albumin 4.3 3.5 D Globulin 3.2 2.7 Albumin/Globulin Ratio 1.3 1.3 Quality Measures Quality Measures none Advance care planning discussed with:: patient Assessment & Plan Assessment Current Active Medications: Generic Name Dose Route Start Last Admin Trade Name Freq PRN Reason Stop Dose Admin Acetaminophen 650 mg 09/18/24 20:40 Acetaminophen 325 Mg Tablet PO 10/18/24 20:39 Q6H PRN Fever >100.3 or pain 1-3 Amlodipine Besylate 10 mg 09/19/24 09:00 09/19/24 09:11 Amlodipine Besylate 5 Mg Tablet PO 10/19/24 08:59 10 mg QDAY TAMARA Administration Atorvastatin Calcium 10 mg 09/19/24 09:00 09/19/24 09:11 Atorvastatin Calcium 10 Mg Tablet PO 10/19/24 08:59 10 mg QDAY TAMARA Administration Dextrose 25 ml 09/18/24 21:39 Dextrose 50%-Water Inj 50 Ml Syringe IV 10/18/24 21:38 Q15MIN PRN BG 50-70 responsive npo pt Dextrose 50 ml 09/18/24 21:39 Dextrose 50%-Water Inj 50 Ml Syringe IV 10/18/24 21:38 Q15MIN PRN BG <50 OR BG <70 & pt unresponsive Fluconazole 400 mg 09/20/24 09:00 Fluconazole 100 Mg Tablet PO 09/27/24 08:59 DAILY TAMARA Gabapentin 100 mg 09/18/24 23:00 09/18/24 23:50 Gabapentin 100 Mg Capsule PO 10/18/24 22:59 100 mg TID TAMARA Administration Glucagon 1 mg 09/18/24 21:39 Glucagon Inj 1 Mg Vial IM Q15MIN PRN BG <70, and no IV access Insulin Human Lispro 0 unit 09/19/24 07:30 09/19/24 11:26 Insulin Lispro (Admelog) 1 Unit/0.01 Ml Unit SC 10/19/24 07:29 Not Given AC TAMARA Protocol Losartan Potassium 100 mg 09/19/24 09:00 09/19/24 09:12 Losartan Potassium 25 Mg Tablet PO 10/19/24 08:59 100 mg QDAY TAMARA Administration Ondansetron HCl 4 mg 09/18/24 20:40 Ondansetron Inj 2 Mg/Ml Inj 2 Ml IV 10/18/24 20:39 Q6H PRN NAUSEA OR VOMITING Protocol Pantoprazole Sodium 40 mg 09/19/24 09:00 09/19/24 09:11 Pantoprazole 40 Mg Tablet PO 10/19/24 08:59 40 mg QDAY TAMARA Administration Sennosides 1 tab 09/18/24 20:40 Senna Tablet PO 10/18/24 20:39 QDAY PRN constipation Protocol Sertraline HCl 100 mg 09/19/24 09:00 09/19/24 09:11 Sertraline Hcl 25 Mg Tablet PO 10/19/24 08:59 100 mg QDAY TAMARA Administration Plan Assessment Shaw Vo is 74 yr female with PMH of hypertension, diabetes, mild dementia, anxiety, valley fever, previous DVT presenting with chief complaint of coughing blood. Patient's hemoptysis episode started around lunchtime today. Patient to be admitted for workup of hemoptysis. #Hemoptysis #Hx DVT #History of valley fever #History intestinal metaplasia CT chest shows cavitary mass in right upper lobe 6 x 5 cm (appears consistent with previous imaging), various small nodules in right lung. CT angio negative for PE Ultrasound lower extremity shows partial nonocclusive thrombus left popliteal vein Patient has not been compliant with taking Eliquis and has not taken it in a while as this does not explain hemoptysis Patient has had multiple CT images displaying relatively unchanged size of cavitary lesion CT chest read differential includes active tuberculosis, however we have low suspicion of active tuberculosis at this time Patient has been previously worked up for TB which was negative in the past, however previous AFBs have showed possible concern for valley fever Patient has had multiple valley fever serologies that have showed positive IgM and IgG Patient was on a nontherapeutic dose of Diflucan as she was taking 200 mg and there is concern for medication noncompliance Patient may need bronchoscopy at some point Due to patient having history of intestinal metaplasia and weight loss, we will order FOBT for further workup Plan: ? Continue Diflucan 400 mg every day ? Reordered cocci serologies ? Pending echo ? Will hold anticoagulation in setting of bleed and also patient's thrombus is nonocclusive at this time ? FOBT ? ID consult #[id number] type 2 diabetes mellitus A1c 7.2 Plan: ? Bedside blood glucose checks ACHS ? Insulin lispro sliding scale ? Carb consistent low diet #Hypertension #Hyperlipidemia Chronic Plan: ? Resumed home Norvasc and losartan ? Resumed home Lipitor 10 mg at bedtime #Hx anxiety Plan: ?Resumed home Zoloft and Lexapro #Medication noncompliance #Obese Plan: ? Patient Education #Health Maintenance Disposition: Telemetry DVT prophylaxis: SCDs GI prophylaxis: Protonix Diet: Low-carb CODE STATUS: DNR Patient seen and care discussed with my senior resident, Dr. Stein, and my attending physician, Dr. Jeanne Solis, PGY-1 Attending Provider Attestation/Addendum I have discussed and was present for the essential components of the history, physical examination, diagnosis, and treatment plan with the resident. I agree with the patient's care as documented by the resident and amended herein by me. Lio Angel DO. Patient seen and evaluated this AM. Patient is a new admission overnight, admitted for hemoptysis. Apparently the patient is a terrible historian and is suspect to be noncompliant with her medications. The patient's and daughters were at bedside this morning during my examination. Several images were taken on admission, initial chest x-ray demonstrated a right upper lobe pulmonary mass, chest CT was also done demonstrating a thick-walled cavitary mass posterior segment right upper lobe noted to be 6 x 5 x 5 cm with surrounding pneumonic consolidation. Additional small pulmonary nodules in the right upper lobe and right lower lobe are also seen. A chest CTA was also performed for apparent hypoxia however was negative for any PE. Same additional findings as the regular CT. A DVT ultrasound was also performed on the patient's bilateral lower extremity demonstrating a partial nonocclusive thrombus of the left popliteal vein which was also demonstrated on another DVT ultrasound on 08/07. It looks like the patient also had bilateral DVTs according to an ultrasound in June 2024 and was prescribed Eliquis by the ED on 07/17. Patient was also represcribed the medicine on 08/28 however she states she has not been taking it however the patient's history is very confusing as the patient and her do not appear to be knowledgeable on her current medications. As far as the patient's pulmonary lesions are concerned, going all the way back to August [address], a thick-walled cavitary mass in the superior segment of the right lower lobe was seen at that time, it was also demonstrated in May 2021. I think these were meant to be read as the right upper lobe as this is what the images represent, most likely a dictation error. Apparently the patient did see a software product specialist for some time however does not currently follow with one. 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 Patient's IgG for Coccidioides was positive all the way through the latest testing in May 2024 for IgG via immunodiffusion. At this time I am unclear if the patient was actually taking Eliquis or not for her DVT, the family seems to be confused on this matter, she states she has not however this may explain any hemoptysis if she is confused in this medication with another one. Patient was also taking fluconazole however 200 mg daily, unclear as to why that dose, hence we have consulted infectious disease for further recommendations. As such we have continued the patient on her fluconazole however 400 mg daily and continued her home medications as appropriate. The family was also concerned that this may be hematemesis as well as hemoptysis, the patient's hemoglobin to however is within normal limits, however as such, we did order a fecal occult testing. the patient's last EGD was performed by Dr. Vargas in June 2018 and demonstrated a mildly erythematous mucosa of the greater curvature of the stomach body and a polyp in the prepyloric region. A colonoscopy was also performed the next day however due to incomplete cleansing, the procedure was aborted. Pathology reports at that time from the EGD was negative for any intestinal metaplasia, dysplasia or malignancy however the stomach biopsy resulted in chronic inactive gastritis, positive for focal intestinal metaplasia however negative for dysplasia or malignancy and negative for H. pylori. The patient has a pathology report in September 2017 which was completely negative for any metaplasia, dysplasia or malignancy in the stomach and the esophagus. Per the patient's family, she has not followed with a certified medical dosimetrist. If the fecal occult is positive, we will consult Dr. Garcia for further workup however if not, the patient can follow-up outpatient for her metaplasia. I do see that the patient was on omeprazole 40 mg daily at one point however do not see that in her currently prescribed medications. Will continue to monitor closely Although this document has been carefully reviewed, there may still be some phonetic and other typographical errors. These errors are purely grammatical due to imperfections in the software program and should not be construed in any way to compromise the substance of the patient's medical care during this visit.
[2024-09-19] MEDS: GABAPENTIN 100 MG CAPSULE PO ×2 (13:31→21:36)
--- NOTE | 2024-09-19 14:29 | PC.SS ---
Rounding Note: Patient on airborne precautions. Infectious disease is consulting.
--- NOTE | 2024-09-19 14:37 | PC.SS ---
CIGAR TOBACCO REHANDLER conducted bedside contact with the patient conduct initial assessment and to discuss discharge planning.? At bedside with patient was daughter, Sharon Vo .? Patient is Estonian speaking.? Daughter provided information for assessment and discharge planning.? Patient resides at home with spouse, Ricardo Vo .? Patient utilizes a walker to assist with ambulation.? Patient does not utilize home oxygen.? Patient completes ADL?s independently.? Patient?s medical surrogate decision maker is spouse, Ricardo Vo.? Patient?s PCP is Jacquelyn Martinez, [facility].? The patient?s home lighting adviser is Dr. Lombardi.? The patient does not participate with dialysis.? The patient possess diabetes, non-insulin dependent.? Patient possesses a history of depression.? Patient utilizes [facility] for medication services.? Discharge plan is for the patient to return home at the time of discharge.? Family will provide transportation on behalf of the patient.? No discharged needs identified by the patient?s family.? No further intervention required at this time, social worker clinical will be available to address any further concerns.? Next of Kin: Ricardo Tavo D/C Plan: Home
--- NOTE | 2024-09-19 14:45 | PD.IDPROG ---
Subjective Subjective Interval history: some choose to treat with flucon 400/day indefinitely for cavitary cocci with hemoptysis was not taking her meds well at home. Exam Vital Signs Temp Pulse Resp BP Pulse Ox O2 Del Method 97.1 F 73 20 132/94 H 98 Room Air 09/19/24 12:00 09/19/24 12:00 09/19/24 12:00 09/19/24 12:00 09/19/24 12:00 09/19/24 12:00 Narrative Exam exam benign. no distress but is getting and taking her rx here. spouse unaware of her rx. needs luxembourger help. Objective - Internal Medicine Labs 09/19/24 04:30 09/19/24 04:30 Labs: Laboratory Results - last 24 hr 09/18/24 09/19/24 16:35 04:30 WBC 6.1 4.8 RBC 4.65 4.22 Hgb 13.4 12.5 Hct 43.2 39.7 MCV 93 94 MCH 28.8 29.6 MCHC 31.0 31.5 RDW Std Deviation 50.9 H 50.8 H Plt Count 223 182 D Neut % (Auto) 62 56 Lymph % (Auto) 28 32 [place] % (Auto) 7 9 Eos % (Auto) 2 3 Baso % (Auto) 1 1 Neut # (Auto) 3.8 2.7 Lymph # (Auto) 1.7 1.5 [place] # (Auto) 0.4 0.4 Eos # (Auto) 0.1 0.1 Baso # (Auto) 0.1 0.0 Immature Gran # (Auto) 0.02 H 0.00 Absolute Nucleated RBC 0.00 0.00 Immature Gran % 0 0 Nucleated RBC % 0 0 PT 11.5 INR 1.1 APTT 29.9 Sodium 143 145 Potassium 4.1 3.7 Chloride 106 107 Carbon Dioxide 30.2 30.9 Anion Gap 7 7 BUN 16 12 Creatinine 0.9 0.8 Estim Creat Clear Calc 63.3 71.3 eGFR > 60 > 60 BUN/Creatinine Ratio 18 15 Glucose [address] Glu mg/dL 160 H Hemoglobin A1c 7.2 H Calculated Osmolality 287 288 Calcium 9.5 8.8 Corrected Calcium 9.5 9.2 Phosphorus 3.1 Magnesium 2.0 Total Bilirubin 0.4 0.6 AST 17 14 ALT 10 8 L Alkaline Phosphatase 181 H 147 H D Total Protein 7.5 6.2 Albumin 4.3 3.5 D Globulin 3.2 2.7 Albumin/Globulin Ratio 1.3 1.3 Assessment & Plan A&P Narrative 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 recent cocci cf neg. so likely the same on f/u ok to discharge on flucon if no tb found. I am happy to see him if referred by his primary with cxr and cocci cf titer and hx of hemoptysis. she speaks mostly luxembourger and has been followed at the [facility] [place] [place] clinic, likely by a midlevel provider Time Spent With Patient Time: Total time spent is greater than 50% in coordination of care (as documented) at patient's floor/unit and/or counseling patient:
--- NOTE | 2024-09-19 18:51 | ESCONSULT_ITS ---
RE: GOMEZ MARCELINO : 1950 DATE OF CONSULTATION: 09/19/2024 REFERRING PHYSICIAN: Hospitalist team. 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 HISTORY OF PRESENT ILLNESS: The patient is apparently much better. Her daughter on phone indicated that her mother has not been taking her treatment at all, and this is probably part of her trouble. She came in with an abscess She probably needs to be on Fluconazole for life with her cavitary disease. She has cavitary lung disease, has not been treated on technician terminal and repeater basis. With her cavitary pulmonary process, she should probably be on treatment on long-term basis. you can give her Fluconazole 400 mg podaily. Her TB workup is negative DT: 15:55:31 TT: 17:00:00 Ref: [id number] - TID: [id number] MTDD
--- NOTE | 2024-09-19 21:00 | PC.NURSE ---
MD contacted for SCD orders due to patient being positive for L popliteal partial nonocclusive thrombus. SCD not placed. MD aware, will notify day shift
[2024-09-20] VITALS (8 sets, daily range): BP systolic 130–150; BP diastolic 74–85; PULSE 54–90; RESP 17–95; TEMP 36–36.3; O2SAT 92–98; BMI 43.4
[2024-09-20] MEDS: GABAPENTIN 100 MG CAPSULE PO (05:27)
[2024-09-20 05:46] LABS: Basophils # (Auto) 0.1 Thou/mm3 (0.0-0.2); Basophils % (Auto) 1 % (0-2.5); Eosinophils # (Auto) 0.1 Thou/mm3 (0.0-0.5); Eosinophils % (Auto) 2 % (0-10); Hematocrit 42.3 % (36.0-46.0); Immature Granulocytes % (Auto) 0 % (0-0); Immature Granulocytes Auto 0.02 Thou/mm3 (0.00-0.00); Lymphocytes # (Auto) 1.6 Thou/mm3 (1.0-4.8); Lymphocytes % (Auto) 25 % (10-50); Mean Corpuscular HGB Conc 30.7 g/dl (31.0-37.0); Mean Corpuscular Hemoglobin 28.8 pg (25.0-35.0); Mean Corpuscular Volume 94 fL (80-100); Monocytes # (Auto) 0.4 Thou/mm3 (0.0-0.8); Monocytes % (Auto) 7 % (0-12); Neutrophils # (Auto) 4.2 Thou/mm3 (1.8-7.7); Neutrophils % (Auto) 66 % (37-80); Nucleated Red Blood Cell % 0 /100 WBC (0); Platelet Count 201 Thou/mm3 (140-440); RDW Standard Deviation 50.6 fL (36.4-46.3); Red Blood Count 4.51 Miln/mm3 (4.00-5.20); White Blood Count 6.4 Thou/mm3 (3.6-11.0)
[2024-09-20 06:24] LABS: Alanine Aminotransferase 8 U/L (10-49); Albumin, Serum 3.7 gm/dL (3.4-4.8); Albumin/Globulin Ratio 1.3 (1.2-2.2); Alkaline Phosphatase 149 U/L (46-116); Anion Gap 10 (7-16); Aspartate Amino Transferase 15 U/L (0-34); BUN/Creatinine Ratio 13 Ratio (12-20); Bilirubin,Total 0.6 mg/dL (0.3-1.2); Blood Urea Nitrogen 12 mg/dL (9-23); Calcium 9.1 mg/dL (8.3-10.6); Calcium (Corrected) 9.3 mg/dL (8.5-10.1); Carbon Dioxide 28.2 mMol/L (20.0-31.0); Chloride 103 mMol/L (98-107); Creatinine (Component) 0.9 mg/dL (0.6-1.3); Estimated Creatinine Clearance 65.8 mL/min (>60); Globulin 2.9 gm/dL (2.3-3.5); Glucose 105 mg/dL (74-106); Osmolality,Calculated 280 (275-295); Potassium 3.9 mMol/L (3.4-5.1); Sodium 141 mMol/L (136-145); Total Protein 6.6 gm/dL (5.7-8.2); eGFR > 60 See Note
--- NOTE | 2024-09-20 08:17 | EKG_ITS ---
[facility] Test Date: 2024-09-20 Pat Name: GOMEZ MARCELINO [facility]: 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
[2024-09-20] MEDS: amLODIPine BESYLATE 5 MG TABLET 10 MG PO (09:51)
[2024-09-20] MEDS: SERTRALINE HCL 25 MG TABLET 100 MG PO (09:51)
[2024-09-20] MEDS: ATORVASTATIN CALCIUM 10 MG TABLET PO (09:52)
[2024-09-20] MEDS: ESCITALOPRAM OXALATE 10 MG TABLET PO (09:52)
[2024-09-20] MEDS: FLUCONAZOLE 100 MG TABLET 400 MG PO (09:52)
[2024-09-20] MEDS: PANTOPRAZOLE 40 MG TABLET PO (09:52)
[2024-09-20] MEDS: LOSARTAN POTASSIUM 25 MG TABLET 100 MG PO (09:52)
--- NOTE | 2024-09-20 13:18 | ESDS_ITS ---
Planned Discharge Date 09/20/24 DS: Providers Provider Date of admission: 09/18/24 20:40 Primary care physician: Physician No Primary/Family Admitting Provider: Jonh Crain MD Attending Provider on Admission: Daquan Angel DO Consults: 09/18/24 23:19 Referral Infection Control Routine Comment: Reason for Infection Control Referral: Patient In Isolation 09/19/24 10:45 Consult to Infectious Diseases Urgent Comment: Cavitary lesion, Consulting Provider: Eric Ronquillo Attending Provider on DC: Daquan Angel DO Discharging Provider: Daquan Angel DO DS: Diagnosis Problem List Completed Was Problem List Reviewed/Reconciled?: Yes Hospital Course Hospital Course Hospital course: Shaw Vo is a 74 yr female with PMHx of hypertension, diabetes, mild dementia, anxiety, valley fever, previous DVT who was admitted to [facility] on 09/18/2024 for evaluation of new onset hemoptysis. Pt had arrived to the ED with a BP 163/96, HR 87, RR 18, afebrile, saturating 93% on room air. Her Hemoglobin was stable 13, CMP unremarkable while her was Glucose 124 on admission. Imaging was done and CT chest shows cavitary mass in right upper lobe 6 x 5 cm which appeared unchanged from previous imaging including multiple CT scans. CTA chest was done which had ruled out pulmonary embolism for the patient, however (appears consistent with previous imaging), various small nodules in right lung. Medicine was consulted for further workup of cavitary lesion. While admitted, pt had a US duplex of LE as pt had been prescribed an anticoagulant for a DVT in which she had not been compliant with. Pt had reported not taking A/C in some time now. US showed partial nonocclusive thrombus in the L popliteal vein. Due to the setting of hemoptysis and since DVT was nonocculsive we did not resume A/C however should be considered by primary care physician follow-up. It was noted pt had also been taking Diflucan in the past but at a subtherapeutic dose of 200 mg. Pt is a known case of chronic cocci and had seen pulmonology outpatient as well. Due to history of intestinal metaplasia from a gastric biopsy from an EGD a few years ago, there was consideration to consider GI, however this was held off. We also had Infectious Disease consulted, Dr. Ronquillo, who recommended to continue with Diflucan 400 mg for the patient and to follow up outpatient. Pt's hemoglobin continued to be stable at 13 and did not have further episodes of hemoptysis. Pt was then discharged with the following instructions. Discharge Instructions: Please follow-up with your primary care physician within 5 to 7 days of discharge. If you need a primary care physician you can make an appointment with our [facility] at [phone] Please take your medications as prescribed, fluconazole 400 mg daily has been added. Your primary care physician will have to refer you to the infectious disease specialist, Dr. 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 Jeanne Solis, PGY-1 Time Spent with Patient Time attestation: Total time spent providing and/or coordinating discharge services: Time spent: Greater than 30 minutes Exam Vital Signs Temp Pulse Resp BP Pulse Ox O2 Del Method 96.9 F 70 18 132/74 H 93 L Room Air 09/20/24 12:00 09/20/24 12:00 09/20/24 12:00 09/20/24 12:00 09/20/24 12:00 09/20/24 12:00 Narrative Exam General: Elderly female, peers anxious, tearful, no acute distress, cooperative HEENT: NCAT, No JVD noted. Mucosa dry. Pupils are equal and reactive to light bilaterally Cardiovascular: Normal S1 and S2. Regular rate and rhythm. Respiratory: Lungs are clear to auscultation bilaterally. No wheezing or crackles heard. Abdomen: Soft, nontender, not distended, normal bowel sounds. Skin: Warm to touch, dry, no rashes noted Musculoskeletal: No gross injuries. Able to move all 4 extremities. No pitting edema, no lower extremity tenderness, bilateral calves symmetrical Neuro: Alert and oriented x3. No focal neuro deficits. Psych: Normal affect and mood Discharge Plan Plan Patient Disposition: HOME (Self Care) Patient condition on transfer: Stable Prescriptions/Referrals Prescriptions/Med Rec: New fluconazole 200 mg tablet 400 mg PO QDAY 30 Days Qty: 60 0RF Rx Instructions: 400mg daily Continued atorvastatin 10 mg Tablet 10 mg PO QDAY omeprazole 40 mg Capsule,Delayed Release(Dr/Ec) 40 mg PO QDAY sertraline 100 mg Tablet 100 mg PO QDAY ondansetron 4 mg tablet,disintegrating 4 mg PO Q8H PRN (Reason: nausea and vomiting) Qty: 15 0RF gabapentin 100 mg capsule 100 mg PO 3XD amlodipine 10 mg tablet 10 mg PO QDAY Qty: 30 0RF losartan 100 mg tablet 100 mg PO QDAY Qty: 30 0RF Rx Instructions: Hold if SBP < 120 Discontinued amoxicillin-pot clavulanate 500-125 mg tablet 1 tab PO BID Qty: 14 0RF Referrals: Eric Ronquillo MD [Physician] - No Primary/Family,Physician [Primary Care Provider] - Patient/Caregiver Discharge Instructions Other Discharge Activity Instructions:: Please follow-up with your primary care physician within 5 to 7 days of discharge. If you need a primary care physician you can make an appointment with our [facility] at [phone] Please take your medications as prescribed, fluconazole 400 mg daily has been added. Your primary care physician will have to refer you to the infectious disease specialist, Dr. Eric Ronquillo for further evaluation and follow-up Please return to the emergency department for any persistent or worsening symptoms Education Materials: Understanding Coccidioidomycosis Print Language: Mongolian Stand Alone Forms: Tiffani Award Info., Patient Portal Info Letter Discharge Order Discharge Orders: Discharge (Routine); Ordered 09/20/24 Ordered By: Daquan Angel Quality Discharge Quality Measures VTE prophylaxis (SCDs) Attestestation MD Attestation I have discussed and was present for the essential components of the discharge history, physical examination, diagnosis, and discharge treatment plan with the resident. I agree with the patient's discharge care as documented by the resident and amended herein by me. Lio Angel DO. The patient/ understood all discharge instructions, all questions were answered satisfactorily. The patient/ was instructed to return to the Emergency Department is symptoms worsened or persisted. We believe the patient's persistent cavitary lesion and hemoptysis is likely due to coccidiomycosis infection in which the patient was previously diagnosed however has been noncompliant with her medications. Will be discharged with fluconazole 400 mg daily and will need close follow-up with her primary care and from that point can be referred to Dr Ronquillo, infectious disease specialist for continued monitoring. Patient was also treated in the past 1 to 2 months for DVT on Eliquis however was not resumed secondary to hemoptysis however this can be reviewed later with primary care physician and possibly restarted. Patient was stable, afebrile, tolerating p.o. intake and ambulatory at time of discharge home. All questions from family who we spoke with on the phone and at bedside were answered satisfactorily Although this document has been carefully reviewed, there may still be some phonetic and other typographical errors. These errors are purely grammatical due to imperfections in the software program and should not be construed in any way to compromise the substance of the patient's medical care during this visit.
== END 2024-09-20 15:15 | disposition home or self-care (01) | DRG 204 ==
LOC: SERX 19:01 → SERHOLD 20:57 → S2NX 09-19 06:14 → S2SX 09-19 06:14
PROVIDERS: Nurse Practitioner Primary Care; Admitting Provider Internal Medicine; Emergency Provider Emergency Medicine; Visit Provider Student in an Organized Health Care Education/Training Program
DX: R04.2 Hemoptysis (principal); B38.0 Acute pulmonary coccidioidomycosis; F03.A4 Unspecified dementia, mild, with anxiety; Z68.41 Body mass index [BMI] 40.0-44.9, adult; I82.432 Acute embolism and thrombosis of left popliteal vein; I10 Essential (primary) hypertension; R63.4 Abnormal weight loss; E66.01 Morbid (severe) obesity due to excess calories; E78.00 Pure hypercholesterolemia, unspecified; K21.9 Gastro-esophageal reflux disease without esophagitis; E11.9 Type 2 diabetes mellitus without complications; F32.A Depression, unspecified; Z86.718 Personal history of other venous thrombosis and embolism; Z91.148 Patient's other noncompliance with medication regimen for other reason; Z79.01 Long term (current) use of anticoagulants; E66.9 Obesity, unspecified; Z66 Do not resuscitate; Z79.4 Long term (current) use of insulin; Z79.899 Other long term (current) drug therapy
CPT/HCPCS: 36415; 71046; 71250; 71275; 80053; 83036; 83735; 84100; 85025; 85610; 85730; 86171; 86635; 87811; 93005; 93225; 93306; 93970; 99285; A4649; Q9967; A9270

== ENCOUNTER → 2024-09-26 | Outpatient (CLI) | payer OTHER, MEDICAID, SELFPAY ==
--- NOTE | 2024-09-26 | XR_ITS ---
Examination: Bone densitometry Date and time of exam: September 26, 2024 1413 hours INDICATIONS: Menopause age 50 Technique: Lumbar spine and hip total bone mineralization values of an calculated. Peak reference and age match control results have been displayed. Findings: Lumbar spine total bone mineralization is1.292 gm/cm2. This is 2.2 standard deviations above peak reference. This is 1.6 standard deviations above age-matched controls. Hip total bone mineralization is 1.078 gm/cm2 This is 0.9 standard deviations above peak reference. This is 2.6 standard deviations above age-matched controls Impression: There is normal mineralization based on lumbar spine measurements. There is normal mineralization based on hip measurements
== END | disposition home or self-care (01) ==
PROVIDERS: PCP Nurse Practitioner Family; Referring Provider Nurse Practitioner Family; Visit Provider Nurse Practitioner Family
DX: M81.0 Age-related osteoporosis without current pathological fracture (principal)
CPT/HCPCS: 77080

== ENCOUNTER → 2024-11-09 | Outpatient (CLI) | payer OTHER, MEDICAID, SELFPAY ==
--- NOTE | 2024-11-09 | XR_ITS ---
Examination: Sinus series 4 views TECHNIQUE: Susy Steve lateral submentovertex sinus series 4 views Date and time: November 09, 2024 0741 hours INDICATIONS: Right ear pain sinus pressure and pain one month FINDINGS: Opacity in the frontal and ethmoid air cells Mild opacity in the lateral right maxillary antrum No fluid levels No retention cysts No cortical bone destruction Moderate hypertrophy inferior nasal turbinates IMPRESSION: Chronic frontal ethmoid maxillary antral sinusitis
== END | disposition home or self-care (01) ==
LOC: CDIM 07:30
PROVIDERS: PCP Family Medicine; Referring Provider Nurse Practitioner Family; Visit Provider Nurse Practitioner Family
DX: J32.8 Other chronic sinusitis (principal)
CPT/HCPCS: 70220

== ENCOUNTER 2024-12-09 12:14 | Emergency (ER) | payer OTHER, MEDICAID, SELFPAY ==
[2024-12-09 12:22] VITALS: BP 162/90; PULSE 83; RESP 18; TEMP 36.6; O2SAT 97; BMI 38.6
--- NOTE | 2024-12-09 12:34 | EDNOTE_ITS ---
ED Ear RME/HPI General Chief complaint: Ear Stated complaint: RIGHT EAR PAIN X 2 WEEKS, BLOOD IN EAR TODAY Time Seen by Provider: 12/09/24 12:34 Arrival date/time: 12/09/24 12:14 74-year-old female presents to the emergency department a complaint of right ear pain x 2 weeks patient reports she went to her primary care doctor they gave her eardrops but reports pain persists patient reports no fever nausea vomiting no headache dizziness or weakness. Patient reports that she was concerned that she is a some blood in the ear canal today Limitations: no limitations Related Data Home Medications ?Medication ?Instructions ?Recorded ?Confirmed atorvastatin 10 mg tablet 10 mg PO QDAY 05/14/1804/28 omeprazole 40 mg capsule,delayed 40 mg PO QDAY 9 04/28/24 release sertraline 100 mg tablet 100 mg PO QDAY 06/30/1804/02 gabapentin 100 mg capsule 100 mg PO 3XD 04/28/2404/28 Previous Rx's ?Medication ?Instructions ?Recorded ondansetron 4 mg disintegrating 4 mg PO Q8H PRN nausea and 10/25/22 tablet vomiting #15 tabs amlodipine 10 mg tablet 10 mg PO QDAY #30 tabs 05/01 losartan 100 mg tablet 100 mg PO QDAY #30 tabs 04/03 05/25 amoxicillin 875 mg-potassium 1 tab PO BID 7 days #14 t abs 12/09/24 clavulanate 125 mg tablet ibuprofen 600 mg tablet 600 mg PO Q6H #30 tabs 12/09 ofloxacin 0.3 % ear drops 10 drop otic (ear) QDAY 10 d ays 12/09/24 #10 mL Allergies Allergy/AdvReac Type Severity Reaction Status Date / Time No Known Allergies Allergy Verified 12/09/24 12:17 Review of Systems Review of Systems Systems Reviewed: All systems reviewed, normal except as documented Constitutional Constitutional: Reports system reviewed and no additional complaints, except as documented, Denies fever(s) and Denies headache(s) Eyes Eyes: Reports system reviewed and no additional complaints, except as documented and Denies blurry vision ENT Ears, Nose, Mouth, and Throat: Reports system reviewed and no additional complaints, except as documented, Reports otalgia, Denies headache(s), Denies nasal congestion and Denies nasal discharge Cardiovascular Cardiovascular: Reports system reviewed and no additional complaints, except as documented, Denies chest pain and Denies dyspnea Respiratory Respiratory: Reports system reviewed and no additional complaints, except as documented, Denies chest congestion, Denies cough and Denies dyspnea Gastrointestinal Gastrointestinal: Reports system reviewed and no additional complaints, except as documented and Denies abdominal pain Integumentary/Breasts Skin/Breast: Reports system reviewed and no additional complaints, except as documented and Denies rash Neurologic Neurologic: Reports system reviewed and no additional complaints, except as documented, Reports as per HPI and Denies headache(s) Past Medical History Past Medical History NEUROLOGIC: Positive Dementia (mild dementia mentioned in report); Negative Neurological Disorders or Seizures CARDIAC: Positive Hypercholesterolemia, Deep Vein Thrombosis and Hypertension; Negative Cardiac Disorders or Congestive Heart Failure RESPIRATORY: Positive Asthma; Negative Chronic Obstructive Pulmonary Disease (COPD) GASTROINTESTINAL: Positive Gastrointestinal Disorders, Hiatal Hernia, Gastroesophageal Reflux Disease and Obesity GENITOURINARY: Negative Genitourinary Disorders or Renal Disease REPRODUCTIVE: Positive Previous Pregnancies; Negative Breast Cancer or Pelvic Inflammatory Disease MUSCULOSKELETAL: Negative Musculoskeletal Disorders or Arthritis ENDOCRINE: Positive Diabetes Mellitus Type 2; Negative Endocrine Disorders or Diabetes Mellitus Type 1 HEMATOLOGIC: Negative Blood Disorders, Anemia or Sickle Cell Disease PSYCHO/SOCIAL: Positive Depression and Anxiety OTHER HISTORY: Negative Hospitalization, Autoimmune Disease, Falls, Blood Transfusions, Blood Transfusion Reaction, Anesthesia Reactions, MRSA, Clostridium Difficile, Cancer or Breast Cancer Family History FAMILY HISTORY: Negative Family Cardiac Disorders Surgical History SURGICAL: Positive Cardiac Surgery, Vascular Surgery and Section Social History SMOKING STATUS: Never smoker SECOND HAND EXPOSURE: No ED Exam General Limitations: Present no limitations General appearance: Present alert and in no apparent distress Head Head exam: Present atraumatic Eye Eye exam: Present normal appearance, PERRL and EOMI; Absent conjunctival injection ENT ENT exam: Present mucous membranes moist Expanded ENT Exam TM/Canal exam: Right TM: erythema, bulging, canal discharge and canal tenderness Neck Neck exam: Present normal inspection, full ROM and trachea midline Chest Chest inspection: Present normal inspection and symmetric chest wall rise Respiratory Respiratory exam: Present normal lung sounds bilaterally Cardiovascular Cardiovascular exam: Present regular rate, normal rhythm and normal heart sounds Abdominal Exam Abdominal exam: Present soft and normal bowel sounds Extremities Exam Extremities exam: Present normal inspection and full ROM Back Exam Back exam: Present normal inspection and full ROM Neurological Exam Neurological exam: Present alert, oriented X3 and CN II-XII intact Psychiatric Psychiatric exam: Present normal affect and normal mood Skin Skin exam: Present warm, dry, intact and normal color Course Quality Measures none Vital Signs Vital signs: Vital Signs Temperature 97.9 F 12/09/24 12:22 Pulse Rate 83 12/09/24 12:22 Respiratory Rate 18 12/09/24 12:22 Blood Pressure 162/90 H 12/09/24 12:22 Pulse Oximetry (%) 97 12/09/24 12:22 Oxygen Delivery Method Room Air 12/09/24 12:22 O2 saturation 97% room air within normal limits Ear Patient data External records reviewed:: [facility] previous records Clinical information provided by:: patient Social determinants that could affect healthcare access:: none Patient has the following chronic illnesses:: See history How is presenting disease/condition affected by chronic disease/condition?: uneffected by Evaluation data The following diagnostics were reviewed and interpreted by me:: other (specify) (N/A) Lab and/or radiology exams considered but not ordered:: Considered not indicated Interpretation Summary: N/A Medications / Prescriptions Medications or Prescriptions considered but not ordered:: Given Medication administrations:: Given Consultations Consultation(s) initiated? (list below): No Diagnosis Ear Differential Diagnosis: otitis externa and otitis media Most likely diagnosis given after review of the tests above:: Otitis externa Admission Indicated Admission indicated?: not indicated Admission Request Was there a request for admission?: No Disposition Plan Disposition Plan: Discharge Discharge Attestation Discharge Attestation: The patient and all family members were given an opportunity to ask questions and understood the discharge instructions. Discharge instructions specifically effects, indications for sooner follow up or return to the emergency department, and the expected course of current diagnosis. Patient condition: Stable Medical Decision Making MDM Narrative MDM Narrative: 74-year-old female presents to the emergency department a complaint of right ear pain x 2 weeks patient reports she went to her primary care doctor they gave her eardrops but reports pain persists patient reports no fever nausea vomiting no headache dizziness or weakness. Patient reports that she was concerned that she is a some blood in the ear canal today On exam patient does have dried blood in the right ear canal the TM is intact believe she has abrasion to the ear canal itself Patient be discharged home with antibiotic drops as well as oral antibiotic Explained to the patient she should follow-up with her primary care doctor next 48 to 72 hours for worsening symptoms return immediately Differential Diagnosis Differential Diagnosis: Otitis media, otitis externa, otalgia Medical Records Medical records reviewed: Yes I reviewed the patient's medical records. Discharge Plan Plan Patient Disposition: HOME (Self Care) Discharge Disposition comment: Stable Prescriptions/Referrals Prescriptions/Med Rec: New ofloxacin 0.3 % drops 10 drop otic (ear) QDAY 10 Days Qty: 10 0RF ibuprofen 600 mg tablet 600 mg PO Q6H Qty: 30 0RF amoxicillin-pot clavulanate 875-125 mg tablet 1 tab PO BID 7 Days Qty: 14 0RF No Action atorvastatin 10 mg Tablet 10 mg PO QDAY omeprazole 40 mg Capsule,Delayed Release(Dr/Ec) 40 mg PO QDAY sertraline 100 mg Tablet 100 mg PO QDAY ondansetron 4 mg tablet,disintegrating 4 mg PO Q8H PRN (Reason: nausea and vomiting) Qty: 15 0RF gabapentin 100 mg capsule 100 mg PO 3XD amlodipine 10 mg tablet 10 mg PO QDAY Qty: 30 0RF losartan 100 mg tablet 100 mg PO QDAY Qty: 30 0RF Rx Instructions: Hold if SBP < 120 Problem List Clinical Impression: External otitis of right ear Patient/Caregiver Discharge Instructions Education Materials: Anatomy of the Ear Additional Instructions: Please follow up with your primary care doctor in the next 24-48hrs for any worsening symptoms return here immediately Print Language: Ukrainian Stand Alone Forms: Tiffani Award Info., Patient Portal Info Letter PA/TOOL AND MACHINE MAINTAINER Supervising Physician PA/TOOL AND MACHINE MAINTAINER Supervising Physician: Dr. della [place] Attestation MD Attestation The patient was seen by the midlevel practitioner. I, the co-signing physician, was present during the entire ER visit. While I did not physically examine the patient, I was available for consultation as needed. I agree with the plan and documentation.
== END 2024-12-09 12:45 | disposition home or self-care (01) ==
PROVIDERS: Emergency Provider Family Medicine; PCP Family Medicine
DX: H60.91 Unspecified otitis externa, right ear (principal)
CPT/HCPCS: 99283

== ENCOUNTER → 2024-12-20 | Outpatient (CLI) | payer OTHER, MEDICAID, SELFPAY ==
--- NOTE | 2024-12-20 | XR_ITS ---
Examination: PA lateral chest 2 views TECHNIQUE: Upright PA lateral chest 2 views Date and time: December 20, 2024 0832 hours, comparison September 18, 2024 INDICATIONS: Hemoptysis several days. FINDINGS: Normal heart size Enlarged ectatic thoracic aorta. No lobar pneumonia or pulmonary edema Moderate osteopenia, chronic osteoporotic appearing compressions upper dorsal vertebral bodies IMPRESSION: No pneumonia or pulmonary edema Please see the CT chest report September 18, 2024 indicating 4 cm thick-walled cavitary mass posterior segment right upper lobe, consider follow-up CT chest without contrast as clinically warranted
== END | disposition home or self-care (01) ==
PROVIDERS: PCP Nurse Practitioner Family; Referring Provider Nurse Practitioner Family; Visit Provider Nurse Practitioner Family
DX: R04.2 Hemoptysis (principal)
CPT/HCPCS: 71046

== ENCOUNTER → 2025-02-06 | Outpatient (CLI) | payer MEDICARE, MEDICAID, SELFPAY ==
--- NOTE | 2025-02-06 10:00 | XR_ITS ---
Examination: CT chest, without intravenous contrast. Sagittal and coronal 2-D reconstructions. Exam date and time: February 06, 2025, 0957 hours, comparison September 18, 2024 INDICATIONS: Coughing beginning 5 years ago, CT chest September 18, 2024 4 mm pulmonary nodule right upper lobe 2 mm pulmonary nodule left lower lobe CTDI:vol (mGy) 14.3 DLP: (mGycm) 512 Technique: Multiple 3.0 mm axial sections of the chest to been obtained. Bone and lung density settings are obtained. Sagittal and coronal 2-D reconstructions have been obtained. Low dose protocols were performed. One or more of the following dose reduction techniques were used; automated exposure control, adjustment of the mA and/or KV according to patient size, use of iterative reconstruction technique. Findings: No thoracic aortic aneurysmal dilatation Moderate calcification left anterior descending left circumflex right coronary arteries Stable pulmonary nodules right upper lobe and left lower lobe However, new 4 mm pulmonary nodule right lower lobe image 122 Again noted thick-walled cavitary mass in the posterior segment right upper lobe, stable in size, approximately 4 cm No visualized liver or splenic lesion No gallstones IMPRESSION: Again noted 4 cm thick-walled cavitary lesion posterior segment right upper lobe New noncalcified pulmonary nodules as above, with the study as baseline recommend continued 6-month follow-up CT chest without contrast
== END | disposition home or self-care (01) ==
PROVIDERS: PCP Nurse Practitioner Family; Referring Provider Nurse Practitioner Family; Visit Provider Nurse Practitioner Family
DX: R91.8 Other nonspecific abnormal finding of lung field (principal); R05.3 Chronic cough
CPT/HCPCS: 71250

== ENCOUNTER 2025-02-17 08:26 | Emergency (ER) | payer MEDICARE, MEDICAID, SELFPAY ==
[2025-02-17 08:37] VITALS: BP 143/81; PULSE 95; RESP 18; TEMP 36.8; O2SAT 95; BMI 41.1
--- NOTE | 2025-02-17 09:05 | XR_ITS ---
Examination: CT cervical spine without contrast 2-D sagittal reconstructions 2-D coronal reconstructions 3-D reconstructions. Exam date and time: February 17, 2025, 0936 hours INDICATIONS: Ground-level fall 1 week ago with injury to the neck, neck pain CTDI:vol (mGy) 18.7 DLP: (mGycm) 378 technique: Multiple 2 mm axial sections of the cervical spine have been obtained. The coronal and sagittal reconstructions have been obtained. 3-D reconstructions have been obtained. Low dose protocols were performed. One or more of the following dose reduction techniques were used; automated exposure control, adjustment of the mA and/or KV according to patient size, use of iterative reconstruction technique. Findings: Axial sections demonstrate intact base of the skull. C1 exhibit satisfactory relationship to the odontoid. No acute cervical vertebral body fracture seen. Alignment posterior spinous processes satisfactory. Impression: No acute cervical fracture.
--- NOTE | 2025-02-17 09:05 | XR_ITS ---
Examination: CT brain head without contrast. 2-D sagittal coronal reconstructions Date and time of exam: February 17, 2025, 0936 hours INDICATIONS: Ground-level fall 1 week ago with injury to the back of the head, head pain CTDI: vol (mGy): 54.5 DLP: (mGycm): 1065 Technique: Multiple CT axial sections of the brain have been obtained, 5 mm slice thickness. Contrast has not been administered. 2-D sagittal, coronal reconstructions have been obtained Low dose protocols were performed. One or more of the following dose reduction techniques were used; automated exposure control, adjustment of the mA and/or KV according to patient size, use of iterative reconstruction technique. Findings: No significant ventricular enlargement. Intra-axial or extra-axial hemorrhage density is not seen. No mass effect or midline shift Basal cisterns are not remarkable. Fourth ventricle is midline. Cranial vault intact. Impression: Negative for acute hemorrhage, mass effect or midline shift
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
[2025-02-17] MEDS: ACETAMINOPHEN 500 MG TABLET 1000 MG PO (11:49)
[2025-02-17] MEDS: IBUPROFEN TAB 400 MG TABLET 800 MG PO (11:49)
== END 2025-02-17 11:58 | disposition home or self-care (01) ==
PROVIDERS: Emergency Provider Emergency Medicine; PCP Nurse Practitioner Family
DX: S00.93XA Contusion of unspecified part of head, initial encounter (principal); W22.8XXA Striking against or struck by other objects, initial encounter; S10.93XA Contusion of unspecified part of neck, initial encounter; I10 Essential (primary) hypertension; E11.9 Type 2 diabetes mellitus without complications; F03.90 Unspecified dementia, unspecified severity, without behavioral disturbance, psychotic disturbance, mood disturbance, and anxiety; F41.9 Anxiety disorder, unspecified
CPT/HCPCS: 70450; 72125; 99283; A9270

== ENCOUNTER → 2025-03-08 | Outpatient (CLI) | payer MEDICARE, MEDICAID, SELFPAY ==
[2025-03-08 10:36] LABS: Basophils # (Auto) 0.1 Thou/mm3 (0.0-0.2); Basophils % (Auto) 1 % (0-2.5); Eosinophils # (Auto) 0.1 Thou/mm3 (0.0-0.5); Eosinophils % (Auto) 1 % (0-10); Hematocrit 44.5 % (36.0-46.0); Hemoglobin 14.1 g/dL (12.0-16.0); Immature Granulocytes Auto 0.02 Thou/mm3 (0.00-0.00); Lymphocytes # (Auto) 1.8 Thou/mm3 (1.0-4.8); Lymphocytes % (Auto) 26 % (10-50); Mean Corpuscular HGB Conc 31.7 g/dl (31.0-37.0); Mean Corpuscular Hemoglobin 30.8 pg (25.0-35.0); Mean Corpuscular Volume 97 fL (80-100); Monocytes # (Auto) 0.4 Thou/mm3 (0.0-0.8); Monocytes % (Auto) 6 % (0-12); Neutrophils # (Auto) 4.5 Thou/mm3 (1.8-7.7); Neutrophils % (Auto) 66 % (37-80); Nucleated Red Blood Cell # 0.00 Thou/mm3 (0.00-0.00); Nucleated Red Blood Cell % 0 /100 WBC (0); Platelet Count 215 Thou/mm3 (140-440); RDW Standard Deviation 54.7 fL (36.4-46.3); Red Blood Count 4.58 Miln/mm3 (4.00-5.20); White Blood Count 6.7 Thou/mm3 (3.6-11.0)
[2025-03-08 10:52] LABS: Alanine Aminotransferase 14 U/L (10-49); Albumin, Serum 4.3 gm/dL (3.4-4.8); Albumin/Globulin Ratio 1.8 (1.2-2.2); Alkaline Phosphatase 163 U/L (46-116); Anion Gap 8 (7-16); Aspartate Amino Transferase 18 U/L (0-34); BUN/Creatinine Ratio 18 Ratio (12-20); Bilirubin,Total 0.5 mg/dL (0.3-1.2); Blood Urea Nitrogen 18 mg/dL (9-23); Calcium 10.0 mg/dL (8.3-10.6); Calcium (Corrected) 10.0 mg/dL (8.5-10.1); Carbon Dioxide 30.1 mMol/L (20.0-31.0); Chloride 101 mMol/L (98-107); Creatinine (Component) 1.0 mg/dL (0.6-1.3); Globulin 2.4 gm/dL (2.3-3.5); Glucose 128 mg/dL (74-106); Osmolality,Calculated 281 (275-295); Potassium 4.3 mMol/L (3.4-5.1); Sodium 139 mMol/L (136-145); Total Protein 6.7 gm/dL (5.7-8.2); eGFR 59 See Note
== END | disposition home or self-care (01) ==
LOC: COPL 09:20
PROVIDERS: PCP Family Medicine; Referring Provider Specialist; Visit Provider Specialist
DX: Z01.812 Encounter for preprocedural laboratory examination (principal); R13.19 Other dysphagia; K21.9 Gastro-esophageal reflux disease without esophagitis
CPT/HCPCS: 36415; 80053; 83036; 85025